=== PATIENT | female | born 1940 | race Caucasian/White ===

== ENCOUNTER 2020-03-11 17:20 | Emergency (ER) | payer MEDICARE, MEDICAID, SELFPAY ==
[2020-03-11 17:29] VITALS: BP 203/88; PULSE 65; RESP 16; TEMP 36.4; O2SAT 100
--- NOTE | 2020-03-11 17:51 | DI.RAD.S_ITS ---
PROCEDURE: XR HUMERUS LT 2V INDICATIONS: fall, injury to left arm TECHNIQUE: 2 views of the humerus were acquired. COMPARISON: None. FINDINGS: Bones: No fractures or dislocations. No suspicious bony lesions. Soft tissues: No suspicious soft tissue calcifications. IMPRESSION: No evidence acute bony abnormality of the left humerus Dictated by: Cheo Herrmann M.D. on 03/11/2020 at 18:22 Approved by: Cheo Herrmann M.D. on 03/11/2020 at 18:22
--- NOTE | 2020-03-11 17:52 | DI.RAD.S_ITS ---
PROCEDURE: XR SHOULDER LT MIN 2V INDICATIONS: fall TECHNIQUE: 3 views of the shoulder were acquired. COMPARISON: None. FINDINGS: Bones: No fractures or dislocations. No suspicious bony lesions. Visualized ribs appear intact. Glenohumeral joint degenerative change. Soft tissues: No suspicious soft tissue calcifications. IMPRESSION: No evidence acute bony abnormality of the left shoulder. If clinical suspicion and/or symptoms persist, further assessment with repeat plain films, or advanced imaging (e.g., CT, MRI, or bone scan) may be helpful for further assessment. Dictated by: Cheo Herrmann M.D. on 03/11/2020 at 18:24 Approved by: Cheo Herrmann M.D. on 03/11/2020 at 18:25
--- NOTE | 2020-03-11 17:52 | DI.RAD.S_ITS ---
PROCEDURE: XR RIBS LT MIN 3V W CXR1V INDICATIONS: fall TECHNIQUE: 2 views of the left ribs were acquired, along with a single view chest. COMPARISON: None. FINDINGS: Surgical changes and devices: None. Bones and chest wall: Nondisplaced anterior lateral left eighth rib fracture.. No suspicious bony lesions. Overlying soft tissues appear unremarkable. Lungs and pleura: No pleural effusions or pneumothorax. Mild bibasilar pulmonary fibrosis. Mediastinum: Mediastinal contours appear normal. Heart size is normal. IMPRESSION: Undisplaced left anterolateral eighth rib fracture. Mild pulmonary fibrosis. Dictated by: Cheo Herrmann M.D. on 03/11/2020 at 18:22 Approved by: Cheo Herrmann M.D. on 03/11/2020 at 18:24
[2020-03-11 17:56] LABS: Add Manual Diff / Slide Review NO; Basophils Absolute Auto 100 /uL (0-100); Basophils Percent Auto 0.6 % (0-2); Eosinophils Absolute Auto 600 /uL (0-450); Eosinophils Percent Auto 3.5 % (2-4); Hematocrit 35.2 % (36-46); Hemoglobin 11.5 g/dL (12.0-16.0); Lymphocytes Absolute Auto 11100 /uL (1100-4500); Lymphocytes Percent Auto 63.6 % (25-40); Mean Corpuscular HGB Conc 32.6 % (30-36); Mean Corpuscular Hemoglobin 29.5 PG (26-34); Mean Corpuscular Volume 90.6 fL (80-100); Monocytes Absolute Auto 900 /uL (0-900); Monocytes Percent Auto 4.9 % (3-14); Neutrophils Absolute Auto 4800 /uL (1500-7000); Neutrophils Percent Auto 27.4 % (50-75); Platelet Count 225 X10^3/uL (150-400); Red Blood Cell Count 3.89 X10^6/uL (4.0-5.2); Red Cell Distribution Width 18.5 % (11.6-14.8); White Blood Cell Count 17.5 X10^3/uL (4.5-11.0)
[2020-03-11 18:05] LABS: Prothrombin Time 10.9 SECONDS (10.1-12.7)
[2020-03-11 18:07] LABS: PTT Partial Thromboplastin Tim 35 SECONDS (26.4-36.2)
--- NOTE | 2020-03-11 18:54 | ED_ITS ---
HPI - Fall <LYNDSAY Devlin - Last Filed: 03/11/20 20:54> General Chief Complaint: Fall Stated Complaint: Fall 4 Days Ago Time Seen by Provider: 03/11/20 18:30 Source: patient and EMS Mode of arrival: EMS Limitations: no limitations History of Present Illness HPI Narrative: The patient is an 79-year-old female a nonsmoker with history of dementia who presents with a chief complaint of a ground level fall on Sunday night. She states that she slipped while going into the bathroom because her socks or slipper and so was the floor landed with her side into the shower chair. She denies hitting head any neck or back pain. She denies any loss of consciousness. She is a resident of [facility] and states that she is very upset that they interrupted her dinner to bring her to the hospital. She denies any pain or shortness of breath. I spoke with patient's , Anderson sanderson by phone, to corroborate story. He states that he on up instantly when he heard her fall and she did not lose consciousness. He does not think that she hit her head. He states that she has a history of dementia and is ?prone to pneumonia. Review of Systems <LYNDSAY Devlin - Last Filed: 03/11/20 20:54> Review of Systems Narrative: GENERAL: Denies chills, fatigue, malaise, fever, sweats. HEENT: Denies sinus pain, ear pain, sore throat, difficulty swallowing, dizziness. RESPIRATORY: Denies dyspnea, cough, wheezing, hemoptysis, sputum. CARDIOVASCULAR: Denies chest pain, palpitations, orthopnea, edema, GASTROINTESTINAL: Denies nausea, vomiting, abdominal pain, diarrhea, constipation, melena. : Denies dysuria, frequency, incontinence, hematuria, urinary retention. MUSCULOSKELETAL: See HPI SKIN: Denies rash, skin lesions, or other NEUROLOGIC: Denies weakness, headache, numbness, change in speech, confusion, seizures, incoordination. PSYCHIATRIC: No concerning psychosocial issues. 12 point review of systems is negative except for those stated above Patient History <LYNDSAY Devlin - Last Filed: 03/11/20 20:54> Medical History (Updated 03/11/20 @ 20:03 by LYNDSAY Devlin) Dementia (Acute) Exam <LYNDSAY Devlin - Last Filed: 03/11/20 20:54> Narrative Exam Narrative: GENERAL: Elderly female no acute distress HEAD: Atraumatic. Normocephalic. No temporal or scalp tenderness. EYES: Right pupil round and reactive, left eye irregular related to previous injury Extraocular motions intact. No scleral icterus. No injection or drainage. ENT: Nose without bleeding, purulent drainage or septal hematoma. Throat without erythema, tonsillar hypertrophy or exudate. Uvula midline. Airway patent. NECK: Trachea midline. No JVD or lymphadenopathy. Supple, nontender, no meningeal signs. CARDIOVASCULAR: Regular rate and rhythm without murmurs, gallops, or rubs. RESPIRATORY: Clear to auscultation. Breath sounds equal bilaterally. No wheezes, rales, or rhonchi. No cough. No increased respiratory effort. No accessory muscle use. General pain to palpation left chest wall. GASTROINTESTINAL: Abdomen soft, non-tender, nondistended. No hepato- splenomegaly, or palpable masses. No guarding. EXTREMITIES: No clubbing, cyanosis, or edema. No joint tenderness, effusion, or edema noted. Peripheral pulses intact all 4 extremities. General pain to palpation left shoulder. Patient refuses range of motion left shoulder, but is observed to be using walker well BACK: Nontender without deformity or crepitance. No flank tenderness. NEURO: Alert, interactive, age appropriate stable gait using a walker SKIN: No rash or erythema visible skin Initial Vital Signs Initial Vital Signs: Vital Signs Temperature 97.5 F L 03/11/20 17:29 Pulse Rate 65 03/11/20 17:29 Respiratory Rate 16 03/11/20 17:29 Blood Pressure 203/88 H 03/11/20 17:29 Pulse Oximetry 100 03/11/20 17:29 <Libertad Mehta MD - Last Filed: 03/12/20 00:45> Initial Vital Signs Initial Vital Signs: Vital Signs Temperature 97.5 F L 03/11/20 17:29 Pulse Rate 65 03/11/20 17:29 Respiratory Rate 16 03/11/20 17:29 Blood Pressure 203/88 H 03/11/20 17:29 Pulse Oximetry 100 03/11/20 17:29 Scores <LYNDSAY Devlin - Last Filed: 03/11/20 20:54> GCS Jose Carlos coma scale eye opening: Spontaneous Hildebran coma scale verbal response: Orientated Jose Carlos coma scale motor response: Obey commands Hildebran coma scale total score: 15 Course <BO DevlinP-BC - Last Filed: 03/11/20 20:54> Orders Ordered: ED Orders 03/11/20 17:40 Complete Blood Count AUTO DIFF Stat Partial Thromboplastin Time Stat Prothrombin Time INR Stat 03/11/20 17:45 Comprehensive Metabolic Panel Stat Lipase Stat Troponin & CK Cardiac Panel Stat 03/11/20 17:51 XR humerus LT 2V Stat 03/11/20 17:52 XR ribs LT min 3V w CXR1V Stat XR shoulder LT min 2V Stat 03/11/20 19:07 RT Consult Eval and Treat NOW Discontinued Medications Hydroxyzine Pamoate (Vistaril) 25 mg PO NOW ONE Stop: 03/11/20 19:25 Last Admin: 03/11/20 19:38 Dose: 25 mg Documented by: GERHARD Vital Signs Vital signs: Vital Signs - 8 hr 03/11/20 17:29 03/11/20 20:04 Temperature 97.5 F L Pulse Rate 65 68 Respiratory Rate 16 19 Blood Pressure 203/88 H Blood Pressure [Left Arm] 170/75 H Pulse Oximetry 100 96 <Libertad Mehta MD - Last Filed: 03/12/20 00:45> Orders Ordered: ED Orders 03/11/20 17:40 Complete Blood Count AUTO DIFF Stat Partial Thromboplastin Time Stat Prothrombin Time INR Stat 03/11/20 17:45 Comprehensive Metabolic Panel Stat Lipase Stat Troponin & CK Cardiac Panel Stat 03/11/20 17:51 XR humerus LT 2V Stat 03/11/20 17:52 XR ribs LT min 3V w CXR1V Stat XR shoulder LT min 2V Stat 03/11/20 19:07 RT Consult Eval and Treat NOW Discontinued Medications Hydroxyzine Pamoate (Vistaril) 25 mg PO NOW ONE Stop: 03/11/20 19:25 Last Admin: 03/11/20 19:38 Dose: 25 mg Documented by: GERHARD Vital Signs Vital signs: Vital Signs - 8 hr 03/11/20 17:29 03/11/20 20:04 Temperature 97.5 F L Pulse Rate 65 68 Respiratory Rate 16 19 Blood Pressure 203/88 H Blood Pressure [Left Arm] 170/75 H Pulse Oximetry 100 96 MDM - Fall <Xochitl Copeland, QUALITY CONTROL SUPERVISOR- - Last Filed: 03/11/20 20:54> Lab Data Result diagrams: 03/11/20 17:40 03/11/20 17:45 Labs: Lab Results 03/11/20 03/11/20 03/11/20 Range/Units 17:40 17:40 17:45 WBC 17.5 H (4.5-11.0) X10^3/uL RBC 3.89 L (4.0-5.2) X10^6/uL Hgb 11.5 L (12.0-16.0) g/dL Hct 35.2 L (36-46) % MCV 90.6 (80-100) fL MCH 29.5 (26-34) PG MCHC 32.6 (30-36) % RDW 18.5 H (11.6-14.8) % Plt Count 225 (150-400) X10^3/uL Neut % (Auto) 27.4 L (50-75) % Lymph % (Auto) 63.6 H (25-40) % Waldo % (Auto) 4.9 (3-14) % Eos % (Auto) 3.5 (2-4) % Baso % (Auto) 0.6 (0-2) % Neut # (Auto) 4800 (2283-9327) /uL Lymph # (Auto) 38772 H (5859-4986) /uL Waldo # (Auto) 900 (0-900) /uL Eos # (Auto) 600 H (0-450) /uL Baso # (Auto) 100 (0-100) /uL PT 10.9 (10.1-12.7) SECONDS INR 1.0 (0.9-1.3) APTT 35 (26.4-36.2) SECONDS Sodium 141 (137-145) mmol/L Potassium 4.8 (3.4-5.1) mmol/L Chloride 112 H (98-107) mmol/L Carbon Dioxide 22 (22-32) mmol/L BUN 45 H (7-17) mg/dL Creatinine 1.65 H (0.52-1.04) mg/dL Estimated GFR 29.9 L (>60) mL/min BUN/Creatinine Ratio 27.3 H (6-22) Glucose 109 (80-110) mg/dL Calcium 9.1 (8.4-10.2) mg/dL Total Bilirubin 0.3 (0.2-1.3) mg/dL AST 28 (14-36) IU/L ALT 13 (<35) IU/L Alkaline Phosphatase 73 (38-126) U/L Total Creatine Kinase 34 (30-135) U/L CK-MB (CK-2) TNP CK-MB (CK-2) Rel Index TNP Troponin I < 0.012 (0.01-0.034) ng/mL Total Protein 7.3 (6.3-8.2) g/dL Albumin 4.1 (3.5-5.0) g/dL Globulin 3.2 (1.7-4.1) g/dL Albumin/Globulin Ratio 1.3 (1.0-2.8) Lipase 149 (23-300) U/L Imaging Data Extremity x-ray #1: Radiologist's Impression: [address] [place] [id number] XRay Report Signed Patient: Thom Lagunas#: [id number] : 8Acct:[id number] Age/Sex: 79 / FDate of Service: 03/11/20 Loc: ED Accession Number: [id number] Procedure: XR shoulder LT min 2V Ordering Provider: Zoe Delgadillo D.O. PROCEDURE: XR SHOULDER LT MIN 2V INDICATIONS: fall TECHNIQUE: 3 views of the shoulder were acquired. COMPARISON: None. FINDINGS: Bones: No fractures or dislocations. No suspicious bony lesions. Visualized ribs appear intact. Glenohumeral joint degenerative change. Soft tissues: No suspicious soft tissue calcifications. IMPRESSION: No evidence acute bony abnormality of the left shoulder. If clinical suspicion and/or symptoms persist, further assessment with repeat plain films, or advanced imaging (e.g., CT, MRI, or bone scan) may be helpful for further assessment. Dictated by: Cheo Herrmann M.D. on 03/11/2020 at 18:24 Approved by: Cheo Herrmann M.D. on 03/11/2020 at 18:25 Chest x-ray: Radiologist's Impression: [address] [place] [address] XRay Report Signed Patient: Thom Lagunas#: [id number] : [id number] Age/Sex: 79 / FDate of Service: 03/11/20 Loc: ED Accession Number: [id number] Procedure: XR ribs LT min 3V w CXR1V Ordering Provider: Zoe Delgadillo D.O. PROCEDURE: XR RIBS LT MIN 3V W CXR1V INDICATIONS: fall TECHNIQUE: 2 views of the left ribs were acquired, along with a single view chest. COMPARISON: None. FINDINGS: Surgical changes and devices: None. Bones and chest wall: Nondisplaced anterior lateral left eighth rib fracture.. No suspicious bony lesions. Overlying soft tissues appear unremarkable. Lungs and pleura: No pleural effusions or pneumothorax. Mild bibasilar pulmonary fibrosis. Mediastinum: Mediastinal contours appear normal. Heart size is normal. IMPRESSION: Undisplaced left anterolateral eighth rib fracture. Mild pulmonary fibrosis. Dictated by: Cheo Herrmann M.D. on 03/11/2020 at 18:22 Approved by: Cheo Herrmann M.D. on 03/11/2020 at 18:24 Extremity x-ray #2: Radiologist's Impression: [address] [place] [id number] XRay Report Signed Patient: Tohm Lagunas#: [id number] : [id number] Age/Sex: 79 / FDate of Service: 03/11/20 Loc: ED Accession Number: [id number] Procedure: XR humerus LT 2V Ordering Provider: Zoe Delgadillo D.O. PROCEDURE: XR HUMERUS LT 2V INDICATIONS: fall, injury to left arm TECHNIQUE: 2 views of the humerus were acquired. COMPARISON: None. FINDINGS: Bones: No fractures or dislocations. No suspicious bony lesions. Soft tissues: No suspicious soft tissue calcifications. IMPRESSION: No evidence acute bony abnormality of the left humerus Dictated by: Cheo Herrmann M.D. on 03/11/2020 at 18:22 Approved by: Cheo Herrmann M.D. on 03/11/2020 at 18:22 [facility] Narrative Medical decision making narrative: The patient is an 79-year-old female who presents after a ground level fall Sunday evening. She was then admitted to a care center on Sunday, who sent her to the emergency department today for this unreported fall as well as left shoulder and left rib pain. She ambulates steadily with a walker. She is noted to have an 8th rib fracture, and received incentive spirometry training in the emergency department. Given that her fall was not witnessed directly, I did speak with her as she refuses a CT scan and he is okay with this. I discussed that I am not able to visualize head bleeds and he states understanding. The patient refuses some lab work, refuses an EKG and refuses to given urinalysis in the emergency department. She refuses parts of her exam and refuses shoulder re-evaluation throughout her stay in the emergency department. She repeatedly requested to go home and as she is alert and oriented to situation and place I am okay with this, especially given that I discussed with her . Did discussed use of incentive spirometer to help prevent pneumonia as well as primary care provider follow-up. <Libertad Mehta MD - Last Filed: 03/12/20 00:45> Lab Data Labs: Lab Results 03/11/20 03/11/20 03/11/20 Range/Units 17:40 17:40 17:45 WBC 17.5 H (4.5-11.0) X10^3/uL RBC 3.89 L (4.0-5.2) X10^6/uL Hgb 11.5 L (12.0-16.0) g/dL Hct 35.2 L (36-46) % MCV 90.6 (80-100) fL MCH 29.5 (26-34) PG MCHC 32.6 (30-36) % RDW 18.5 H (11.6-14.8) % Plt Count 225 (150-400) X10^3/uL Neut % (Auto) 27.4 L (50-75) % Lymph % (Auto) 63.6 H (25-40) % Waldo % (Auto) 4.9 (3-14) % Eos % (Auto) 3.5 (2-4) % Baso % (Auto) 0.6 (0-2) % Neut # (Auto) 4800 (3070-7899) /uL Lymph # (Auto) 86865 H (1524-7386) /uL Waldo # (Auto) 900 (0-900) /uL Eos # (Auto) 600 H (0-450) /uL Baso # (Auto) 100 (0-100) /uL PT 10.9 (10.1-12.7) SECONDS INR 1.0 (0.9-1.3) APTT 35 (26.4-36.2) SECONDS Sodium 141 (137-145) mmol/L Potassium 4.8 (3.4-5.1) mmol/L Chloride 112 H (98-107) mmol/L Carbon Dioxide 22 (22-32) mmol/L BUN 45 H (7-17) mg/dL Creatinine 1.65 H (0.52-1.04) mg/dL Estimated GFR 29.9 L (>60) mL/min BUN/Creatinine Ratio 27.3 H (6-22) Glucose 109 (80-110) mg/dL Calcium 9.1 (8.4-10.2) mg/dL Total Bilirubin 0.3 (0.2-1.3) mg/dL AST 28 (14-36) IU/L ALT 13 (<35) IU/L Alkaline Phosphatase 73 (38-126) U/L Total Creatine Kinase 34 (30-135) U/L CK-MB (CK-2) TNP CK-MB (CK-2) Rel Index TNP Troponin I < 0.012 (0.01-0.034) ng/mL Total Protein 7.3 (6.3-8.2) g/dL Albumin 4.1 (3.5-5.0) g/dL Globulin 3.2 (1.7-4.1) g/dL Albumin/Globulin Ratio 1.3 (1.0-2.8) Lipase 149 (23-300) U/L Discharge Plan Departure Patient Disposition: Home Clinical Impression: Fall from ground level Closed rib fracture Qualifiers: Encounter type: initial encounter Rib fracture type: single rib Laterality: left Qualified Code(s): S22.32XA - Fracture of one rib, left side, initial encounter for closed fracture Discharge Date/Time: 03/11/20 20:54 Instructions: How to Use an Incentive Spirometer, DI for Rib Fracture, How to Prevent Falls Activity Restrictions/Additional Instructions: Thank you for trusting us with your care today As I discussed the x-ray of your shoulder and humerus came back with no acute findings Your rib x-ray did show a single rib fracture. We have given you instructions regarding the incentive spirometer to help prevent pneumonia. I encourage you to use that. Please use ice, Tylenol etcetera for pain. Please come back to the emergency department for any acute concerns <Libertad Mehta MD - Last Filed: 03/12/20 00:45> [facility] Attestation: I was immediately available in the department for consultation throughout this patient's visit. I agree with documentation as above. Libertad Mehta MD
--- NOTE | 2020-03-11 19:07 | PC.NURSE ---
Assisted patient to restroom. Initally refused to give sample. Patient agreeable after discussion of why it is necessary. I want out of here
[2020-03-11] MEDS: hydrOXYzine pamoate 25 MG CAPSULE PO (19:38)
[2020-03-11 20:04] VITALS: BP 170/75; PULSE 68; RESP 19; O2SAT 96
--- NOTE | 2020-03-11 20:06 | PC.NURSE ---
pt aware that her will come and pick her up
[2020-03-11 21:12] LABS: Alanine Aminotransferase 13 IU/L (<35); Albumin 4.1 g/dL (3.5-5.0); Albumin Globulin Ratio 1.3 (1.0-2.8); Alkaline Phosphatase 73 U/L (38-126); Aspartate Aminotransferase 28 IU/L (14-36); BUN Creatinine Ratio 27.3 (6-22); Bilirubin Total 0.3 mg/dL (0.2-1.3); Blood Urea Nitrogen 45 mg/dL (7-17); Calcium 9.1 mg/dL (8.4-10.2); Carbon Dioxide 22 mmol/L (22-32); Chloride 112 mmol/L (98-107); Creatine Kinase 34 U/L (30-135); Estimated Glomerular Filt Rate 29.9 mL/min (>60); Globulin 3.2 g/dL (1.7-4.1); Glucose 109 mg/dL (80-110); HEMOLYSIS 16 (0-50); Lipase 149 U/L (23-300); Potassium 4.8 mmol/L (3.4-5.1); Sodium 141 mmol/L (137-145); Total Protein 7.3 g/dL (6.3-8.2)
[2020-03-11 21:23] LABS: Troponin I < 0.012 ng/mL (0.01-0.034)
== END 2020-03-11 20:54 | disposition home or self-care (01) ==
PROVIDERS: Emergency Medicine; Emergency Provider Nurse Practitioner Family
DX: S22.32XA Fracture of one rib, left side, initial encounter for closed fracture (principal); M25.512 Pain in left shoulder; W18.30XA Fall on same level, unspecified, initial encounter; F03.90 Unspecified dementia, unspecified severity, without behavioral disturbance, psychotic disturbance, mood disturbance, and anxiety
CPT/HCPCS: 36415; 71101; 73030; 73060; 80053; 82550; 83690; 84484; 85025; 85610; 85730; 99284

== ENCOUNTER → 2020-03-20 15:54 | Outpatient (ROUT) | payer MEDICARE, MEDICAID, SELFPAY ==
[2020-03-24 09:01] LABS: COVID19 Sendout Not Detected (Not Detected)
== END ==
PROVIDERS: Visit Provider Internal Medicine Cardiovascular Disease
DX: Z03.818 Encounter for observation for suspected exposure to other biological agents ruled out (principal)
CPT/HCPCS: 87635

== ENCOUNTER 2020-05-05 10:50 | Inpatient (IN) | payer MEDICARE, MEDICAID, SELFPAY ==
[2020-05-05] VITALS (28 sets, daily range): BP systolic 127–160; BP diastolic 56–67; PULSE 62–82; RESP 18–30; TEMP 36.6–37.1; O2SAT 89–96; BMI 27.8
--- NOTE | 2020-05-05 11:03 | DI.RAD.S_ITS ---
PROCEDURE: XR CHEST 1V INDICATIONS: short of breath TECHNIQUE: One view of the chest was acquired. COMPARISON: [facility], CR, XR CHEST 1 VIEW, 04/26/2019, 4:48. [facility], CR, XR RIBS LT MIN 3V W CXR1V, 03/11/2020, 17:49. FINDINGS: Surgical changes and devices: None. Lungs and pleura: Low lung volumes. Bilateral patchy airspace opacities most pronounced in the left lower lobe, increased compared to 03/11/2020. No significant pleural effusions or pneumothorax. Mediastinum: Mediastinal contours appear unchanged but partially obscured. Heart size is obscured. Bones and chest wall: No suspicious bony lesions. Overlying soft tissues appear unremarkable. IMPRESSION: Low lung volumes. Increased bilateral patchy airspace opacities most pronounced in the left lower lobe. This could be due to superimposed atelectasis on fibrosis. However, in the proper clinical setting this could represent pneumonia or aspiration. Consider CT chest for further evaluation. Dictated by: Luís Santiago M.D. on 05/05/2020 at 11:23 Approved by: Luís Santiago M.D. on 05/05/2020 at 11:30
--- NOTE | 2020-05-05 11:08 | ED.SOB ---
HPI - SOB/Dyspnea General Chief Complaint: Shortness of Breath/Dyspnea Stated Complaint: short of breath Time Seen by Provider: 05/05/20 10:59 Source: patient and EMS History of Present Illness HPI Narrative: Patient is an 79 year old female with history of dementia and CVA who presents with shortness of breath. She apparently was admitted to [facility] with bilateral pneumonia it is unclear when records are being requested now. Presents today with increasing shortness of breath. She says every time she gets up to walk she gets extremely scared that something might happen and gets very short of breath. She is currently on 4 L nasal cannula she says she has been on oxygen since her admission for pneumonia but is usually at 2 and half. He denies any chest pain. She sleeps sitting up but has been doing that for some time she denies any worsening orthopnea. She has some mild lower extremity edema. She denies any fever MD Complaint: shortness of breath Related Data Home Medications Medication Instructions Recorded Confirmed albuterol sulfate 2 inh INHALATION Q6H PRN 05/05/20 05/05/20 albuterol sulfate 2.5 mg INHALATION BID 05/05/20 05/05/20 allopurinol 100 mg PO QAM 05/05/20 05/05/20 amlodipine 10 mg PO QAM 05/05/20 05/05/20 artifi.tears(hypromellose)(PF) 2 drp OPHTHALMIC (EYE) TID 05/05/20 05/05/20 aspirin-dipyridamole [Aggrenox] 1 cap PO BEDTIME 05/05/20 05/05/20 atorvastatin 40 mg PO BEDTIME 05/05/20 05/05/20 carvedilol 12.5 mg PO BID 05/05/20 05/05/20 escitalopram oxalate 20 mg PO DAILY 05/05/20 05/05/20 hydralazine 50 mg PO BID 05/05/20 05/05/20 hydroxyzine HCl 50 mg PO BID PRN 05/05/20 05/05/20 nutritional supplements 1 ea PO QPM 05/05/20 05/05/20 psyllium 0.5 tsp PO DAILY 05/05/20 05/05/20 quetiapine 25 mg PO QPM 05/05/20 05/05/20 rivastigmine tartrate 1.5 mg PO TID 05/05/20 05/05/20 rivastigmine tartrate 3 mg PO BID 05/05/20 05/05/20 Allergies Allergy/AdvReac Type Severity Reaction Status Date / Time gabapentin Allergy Verified 05/05/20 11:13 hydrocodone Allergy Verified 05/05/20 11:13 tomato Allergy Verified 05/05/20 11:13 Review of Systems Review of Systems ROS Unobtainable: All systems reviewed & are unremarkable except as noted in HPI and below Constitutional Constitutional: Denies chills, Denies fever(s), Denies lethargy and Denies weakness Cardiovascular Cardiovascular: Denies chest pain, Denies irregular heart rhythm, Denies lightheadedness, Denies palpitations, Reports dyspnea, Reports dyspnea on exertion and Denies orthopnea Respiratory Respiratory: Reports chest congestion, Reports dyspnea and Reports dyspnea on exertion Gastrointestinal Gastrointestinal: Denies abdominal pain, Denies change in bowel habits, Denies diarrhea, Denies nausea and Denies vomiting Genitourinary Genitourinary: Denies urinary hesitancy and Denies urinary urgency Genitourinary: Denies urinary hesitancy and Denies urinary urgency Musculoskeletal Musculoskeletal: Denies back pain and Denies myalgias Integumentary/Breasts Skin/Breast: Denies pruritus, Denies erythema, Denies rash and Denies wounds Neurologic Neurologic: Denies behavioral changes and Denies weakness Psychiatric Psychiatric: Denies behavioral changes Endocrine Endocrine: Denies palpitations Patient History Medical History (Updated 05/05/20 @ 16:39 by Cristóbal Onofre DO) CKD (chronic kidney disease) (Acute) CVA (cerebral vascular accident) (Acute) Dementia (Acute) Pulmonary fibrosis (Acute) Right ventricular dysfunction (Acute) Type 2 diabetes mellitus (Acute) Social History Smoking Status: Never smoker alcohol intake: former Exam Initial Vital Signs Initial Vital Signs: Vital Signs Temperature 97.9 F 05/05/20 10:50 Pulse Rate 67 05/05/20 10:50 Respiratory Rate 20 05/05/20 10:50 Blood Pressure 151/66 H 05/05/20 10:50 Pulse Oximetry 95 05/05/20 10:50 GENERAL: Well-appearing, well-nourished and in no acute distress. HEENT: Head atraumatic,EOMI, pupils reactive, face symmetric CARDIOVASCULAR: Regular rate and rhythm without murmurs, rubs or gallops. RESPIRATORY: Coarse breath sounds bilaterally ABDOMEN: Soft, nontender. Normoactive bowel sounds all 4 quadrants. No guarding or rebound.s EXTREMITIES: Normal range of motion, no clubbing. +1 pitting edema Neurovascularly intact NEUROLOGICAL: Alert and oriented SKIN: Warm, dry, no laceration, no petechiae, no rashes or lesions. Const General: cooperative and well developed Nutritional Appearance: well nourished Course Orders Ordered: ED Orders 05/05/20 11:02 Consult to Respiratory Therapy Evaluate & Treat EKG-12 Lead Stat 05/05/20 11:03 XR chest 1V Stat 05/05/20 11:08 Complete Blood Count AUTO DIFF Stat Comprehensive Metabolic Panel Stat D Dimer Stat Lactate (Lactic Acid) Stat Magnesium Stat NT-proBNP (BNP-Adult 18+) Stat Partial Thromboplastin Time Stat Procalcitonin Stat Prothrombin Time INR Stat Troponin & CK Cardiac Panel Stat 05/05/20 11:16 Ferritin Stat Lactate Dehydrogenase Stat 05/05/20 11:55 Blood Culture Stat 05/05/20 13:03 CT angio chest PE protocol Stat 05/05/20 13:26 UA Complete [Urinalysis and Microscopic] Stat Urine Culture Stat 05/05/20 13:57 US periph venous low extrem bi Stat Acetaminophen (Tylenol) 650 mg PO Q6HR PRN PRN Reason: Fever/Mild Pain (1-3) Albuterol (Ventolin) 2.5 mg INH [id number] PRN PRN Reason: shortness of breath Allopurinol (Zyloprim) 100 mg PO DAILY [facility] Amlodipine Besylate (Norvasc) 10 mg PO DAILY [facility] Artificial Tears (Artificial Tears) 2 drops EYE-BOTH TID [facility] Atorvastatin Calcium (Lipitor) 40 mg PO BEDTIME [facility] Carvedilol (Coreg) 12.5 mg PO BID [facility] Dipyridamole/Aspirin (Aggrenox 25 Mg-200 Mg Capsule) 1 each PO BEDTIME [facility] Enoxaparin Sodium (Lovenox) 30 mg SUBCUT DAILY [facility] Escitalopram Oxalate (Lexapro) 20 mg PO DAILY [facility] Furosemide (Lasix) 40 mg IV Q12HR [facility] Hydralazine HCl (Apresoline) 50 mg PO BID [facility] Hydroxyzine Pamoate (Vistaril) 50 mg PO BID PRN PRN Reason: anxiety / agitation. Ceftriaxone Sodium/Dextrose (Rocephin) 1 gm in 50 mls @ 100 mls/hr IV Q24H [facility] Stop: 05/08/20 16:56 Naloxone HCl (Narcan) 0.2 mg IV Q2MIN PRN PRN Reason: Opiate Reversal Rivastigmine (Tartrate 3 Mg) 3 mg PO BID [facility] Rivastigmine (Tartrate 1.5 Mg) 1.5 mg PO TID [facility] Ondansetron HCl (Zofran) 4 mg IV Q8HR PRN PRN Reason: Nausea And Vomiting Prednisone (Deltasone) 60 mg PO DAILY [facility] Quetiapine Fumarate (Seroquel) 25 mg PO QPM [facility] Discontinued Medications Furosemide (Lasix) 40 mg IV NOW ONE Stop: 05/05/20 12:04 Last Admin: 05/05/20 12:46 Dose: 40 mg Documented by: ANGELIQUE Hydroxyzine Pamoate (Vistaril) 50 mg PO NOW ONE Stop: 05/05/20 12:57 Last Admin: 05/05/20 13:05 Dose: 50 mg Documented by: ANGELIQUE Lorazepam (Ativan) 0.5 mg IV NOW ONE Stop: 05/05/20 13:28 Last Admin: 05/05/20 15:15 Dose: Not Given Documented by: ANGELIQUE Prednisone (Deltasone) 60 mg PO NOW ONE Stop: 05/05/20 16:52 Vital Signs Vital signs: Vital Signs - 8 hr 05/05/20 10:50 05/05/20 11:13 05/05/20 11:15 Temperature 97.9 F Pulse Rate 67 62 62 Respiratory Rate 20 21 20 Blood Pressure 151/66 H Pulse Oximetry 95 95 96 05/05/20 11:30 05/05/20 11:45 05/05/20 12:00 Temperature Pulse Rate 66 63 62 Respiratory Rate 23 20 20 Blood Pressure Pulse Oximetry 93 95 95 05/05/20 12:15 05/05/20 12:30 05/05/20 12:45 Temperature 97.8 F Pulse Rate 65 67 77 Respiratory Rate 19 22 30 H Blood Pressure 158/67 H Pulse Oximetry 95 93 89 L 05/05/20 12:47 05/05/20 13:00 05/05/20 13:01 Temperature Pulse Rate 68 70 68 Respiratory Rate 23 27 H 23 Blood Pressure 158/67 H 154/67 H Pulse Oximetry 96 90 L 94 05/05/20 13:15 05/05/20 13:38 05/05/20 13:39 Temperature Pulse Rate 67 73 70 Respiratory Rate 27 H 27 H Blood Pressure 134/60 138/61 Pulse Oximetry 92 90 L 91 05/05/20 13:45 05/05/20 14:00 05/05/20 14:15 Temperature Pulse Rate 67 68 69 Respiratory Rate 22 28 H 22 Blood Pressure 127/59 L 136/56 L Pulse Oximetry 90 L 92 95 05/05/20 14:16 05/05/20 14:30 05/05/20 14:45 Temperature Pulse Rate 72 71 66 Respiratory Rate 23 23 23 Blood Pressure 158/65 H 147/60 H Pulse Oximetry 95 93 93 MDM - SOB/Dyspnea Lab Data Attestation: I reviewed the patient's lab results. Result diagrams: 05/05/20 11:08 05/05/20 11:08 Labs: Lab Results 05/05/20 05/05/20 05/05/20 Range/Units 11:08 11:08 11:08 WBC 16.8 H (4.5-11.0) X10^3/uL RBC 2.88 L (4.0-5.2) X10^6/uL Hgb 8.6 L (12.0-16.0) g/dL Hct 26.6 L (36-46) % MCV 92.4 (80-100) fL MCH 29.9 (26-34) PG MCHC 32.3 (30-36) % RDW 17.8 H (11.6-14.8) % Plt Count 258 (150-400) X10^3/uL Neut % (Auto) 42.1 L (50-75) % Lymph % (Auto) 45.4 H (25-40) % [place] % (Auto) 7.0 (3-14) % Eos % (Auto) 5.1 H (2-4) % Baso % (Auto) 0.4 (0-2) % Neut # (Auto) 7100 H (5234-3662) /uL Lymph # (Auto) 7600 H (6552-1905) /uL [place] # (Auto) 1200 H (0-900) /uL Eos # (Auto) 900 H (0-450) /uL Baso # (Auto) 100 (0-100) /uL PT 12.3 (10.1-12.7) SECONDS INR 1.1 (0.9-1.3) APTT 35 (26.4-36.2) SECONDS D-Dimer (<230) ng/mL Sodium (137-145) mmol/L Potassium (3.4-5.1) mmol/L Chloride (98-107) mmol/L Carbon Dioxide (22-32) mmol/L BUN (7-17) mg/dL Creatinine (0.52-1.04) mg/dL Estimated GFR (>60) mL/min BUN/Creatinine Ratio (6-22) Glucose (80-110) mg/dL Lactate (0.7-2.1) mmol/L Calcium (8.4-10.2) mg/dL Magnesium 2.1 (1.6-2.3) mg/dL Ferritin (11-264) ng/mL Total Bilirubin (0.2-1.3) mg/dL AST (14-36) IU/L ALT (<35) IU/L Alkaline Phosphatase (38-126) U/L Lactate Dehydrogenase (313-618) U/L Total Creatine Kinase 35 (30-135) U/L CK-MB (CK-2) TNP CK-MB (CK-2) Rel Index TNP Troponin I < 0.012 (0.01-0.034) ng/mL NT-Pro-B Natriuret Pep 2140 H (<450) pg/mL Total Protein (6.3-8.2) g/dL Albumin (3.5-5.0) g/dL Globulin (1.7-4.1) g/dL Albumin/Globulin Ratio (1.0-2.8) Procalcitonin (<0.5) ng/mL Urine Color Urine Appearance Urine pH (4.5-8.0) Ur Specific Williams (1.000-1.035) Urine Protein (Negative) Urine Glucose (UA) (Negative) g/dL Urine Ketones (NEGATIVE) Urine Occult Blood (Negative) Urine Nitrate (Negative) Urine Bilirubin (NEGATIVE) Urine Urobilinogen (0.2) E.U./dL Ur Leukocyte Esterase (NEGATIVE) Urine RBC (0-5/HPF) Urine WBC (0-5/HPF) Ur Squamous Epith Cells (0-5/HPF) Amorphous Sediment Urine Bacteria (None) Urine Mucus (Negative) Ur Culture Indicated? COVID-19 PCR (Negative) 05/05/20 05/05/20 05/05/20 Range/Units 11:08 11:08 11:08 WBC (4.5-11.0) X10^3/uL RBC (4.0-5.2) X10^6/uL Hgb (12.0-16.0) g/dL Hct (36-46) % MCV (80-100) fL MCH (26-34) PG MCHC (30-36) % RDW (11.6-14.8) % Plt Count (150-400) X10^3/uL Neut % (Auto) (50-75) % Lymph % (Auto) (25-40) % [place] % (Auto) (3-14) % Eos % (Auto) (2-4) % Baso % (Auto) (0-2) % Neut # (Auto) (1694-5408) /uL Lymph # (Auto) (6948-4394) /uL [place] # (Auto) (0-900) /uL Eos # (Auto) (0-450) /uL Baso # (Auto) (0-100) /uL PT (10.1-12.7) SECONDS INR (0.9-1.3) APTT (26.4-36.2) SECONDS D-Dimer (<230) ng/mL Sodium 141 (137-145) mmol/L Potassium 4.5 (3.4-5.1) mmol/L Chloride 111 H (98-107) mmol/L Carbon Dioxide 22 (22-32) mmol/L BUN 35 H (7-17) mg/dL Creatinine 1.69 H (0.52-1.04) mg/dL Estimated GFR 29.0 L (>60) mL/min BUN/Creatinine Ratio 20.7 (6-22) Glucose 128 H (80-110) mg/dL Lactate 0.6 L (0.7-2.1) mmol/L Calcium 8.8 (8.4-10.2) mg/dL Magnesium (1.6-2.3) mg/dL Ferritin (11-264) ng/mL Total Bilirubin 0.5 (0.2-1.3) mg/dL AST 20 (14-36) IU/L ALT 9 (<35) IU/L Alkaline Phosphatase 78 (38-126) U/L Lactate Dehydrogenase (313-618) U/L Total Creatine Kinase (30-135) U/L CK-MB (CK-2) CK-MB (CK-2) Rel Index Troponin I (0.01-0.034) ng/mL NT-Pro-B Natriuret Pep (<450) pg/mL Total Protein 6.6 (6.3-8.2) g/dL Albumin 3.6 (3.5-5.0) g/dL Globulin 3.0 (1.7-4.1) g/dL Albumin/Globulin Ratio 1.2 (1.0-2.8) Procalcitonin < 0.05 (<0.5) ng/mL Urine Color Urine Appearance Urine pH (4.5-8.0) Ur Specific Williams (1.000-1.035) Urine Protein (Negative) Urine Glucose (UA) (Negative) g/dL Urine Ketones (NEGATIVE) Urine Occult Blood (Negative) Urine Nitrate (Negative) Urine Bilirubin (NEGATIVE) Urine Urobilinogen (0.2) E.U./dL Ur Leukocyte Esterase (NEGATIVE) Urine RBC (0-5/HPF) Urine WBC (0-5/HPF) Ur Squamous Epith Cells (0-5/HPF) Amorphous Sediment Urine Bacteria (None) Urine Mucus (Negative) Ur Culture Indicated? COVID-19 PCR (Negative) 05/05/20 05/05/20 05/05/20 Range/Units 11:08 11:16 11:30 WBC (4.5-11.0) X10^3/uL RBC (4.0-5.2) X10^6/uL Hgb (12.0-16.0) g/dL Hct (36-46) % MCV (80-100) fL MCH (26-34) PG MCHC (30-36) % RDW (11.6-14.8) % Plt Count (150-400) X10^3/uL Neut % (Auto) (50-75) % Lymph % (Auto) (25-40) % [place] % (Auto) (3-14) % Eos % (Auto) (2-4) % Baso % (Auto) (0-2) % Neut # (Auto) (4433-0196) /uL Lymph # (Auto) (6968-1955) /uL [place] # (Auto) (0-900) /uL Eos # (Auto) (0-450) /uL Baso # (Auto) (0-100) /uL PT (10.1-12.7) SECONDS INR (0.9-1.3) APTT (26.4-36.2) SECONDS D-Dimer 459 H (<230) ng/mL Sodium (137-145) mmol/L Potassium (3.4-5.1) mmol/L Chloride (98-107) mmol/L Carbon Dioxide (22-32) mmol/L BUN (7-17) mg/dL Creatinine (0.52-1.04) mg/dL Estimated GFR (>60) mL/min BUN/Creatinine Ratio (6-22) Glucose (80-110) mg/dL Lactate (0.7-2.1) mmol/L Calcium (8.4-10.2) mg/dL Magnesium (1.6-2.3) mg/dL Ferritin 42 (11-264) ng/mL Total Bilirubin (0.2-1.3) mg/dL AST (14-36) IU/L ALT (<35) IU/L Alkaline Phosphatase (38-126) U/L Lactate Dehydrogenase 444 (313-618) U/L Total Creatine Kinase (30-135) U/L CK-MB (CK-2) CK-MB (CK-2) Rel Index Troponin I (0.01-0.034) ng/mL NT-Pro-B Natriuret Pep (<450) pg/mL Total Protein (6.3-8.2) g/dL Albumin (3.5-5.0) g/dL Globulin (1.7-4.1) g/dL Albumin/Globulin Ratio (1.0-2.8) Procalcitonin (<0.5) ng/mL Urine Color Urine Appearance Urine pH (4.5-8.0) Ur Specific Williams (1.000-1.035) Urine Protein (Negative) Urine Glucose (UA) (Negative) g/dL Urine Ketones (NEGATIVE) Urine Occult Blood (Negative) Urine Nitrate (Negative) Urine Bilirubin (NEGATIVE) Urine Urobilinogen (0.2) E.U./dL Ur Leukocyte Esterase (NEGATIVE) Urine RBC (0-5/HPF) Urine WBC (0-5/HPF) Ur Squamous Epith Cells (0-5/HPF) Amorphous Sediment Urine Bacteria (None) Urine Mucus (Negative) Ur Culture Indicated? COVID-19 PCR Negative (Negative) 05/05/20 05/05/20 Range/Units 11:35 13:26 WBC (4.5-11.0) X10^3/uL RBC (4.0-5.2) X10^6/uL Hgb (12.0-16.0) g/dL Hct (36-46) % MCV (80-100) fL MCH (26-34) PG MCHC (30-36) % RDW (11.6-14.8) % Plt Count (150-400) X10^3/uL Neut % (Auto) (50-75) % Lymph % (Auto) (25-40) % [place] % (Auto) (3-14) % Eos % (Auto) (2-4) % Baso % (Auto) (0-2) % Neut # (Auto) (4182-6305) /uL Lymph # (Auto) (9560-4550) /uL [place] # (Auto) (0-900) /uL Eos # (Auto) (0-450) /uL Baso # (Auto) (0-100) /uL PT (10.1-12.7) SECONDS INR (0.9-1.3) APTT (26.4-36.2) SECONDS D-Dimer (<230) ng/mL Sodium (137-145) mmol/L Potassium (3.4-5.1) mmol/L Chloride (98-107) mmol/L Carbon Dioxide (22-32) mmol/L BUN (7-17) mg/dL Creatinine (0.52-1.04) mg/dL Estimated GFR (>60) mL/min BUN/Creatinine Ratio (6-22) Glucose (80-110) mg/dL Lactate (0.7-2.1) mmol/L Calcium (8.4-10.2) mg/dL Magnesium (1.6-2.3) mg/dL Ferritin (11-264) ng/mL Total Bilirubin (0.2-1.3) mg/dL AST (14-36) IU/L ALT (<35) IU/L Alkaline Phosphatase (38-126) U/L Lactate Dehydrogenase (313-618) U/L Total Creatine Kinase (30-135) U/L CK-MB (CK-2) CK-MB (CK-2) Rel Index Troponin I (0.01-0.034) ng/mL NT-Pro-B Natriuret Pep (<450) pg/mL Total Protein (6.3-8.2) g/dL Albumin (3.5-5.0) g/dL Globulin (1.7-4.1) g/dL Albumin/Globulin Ratio (1.0-2.8) Procalcitonin (<0.5) ng/mL Urine Color Yellow Urine Appearance Clear Urine pH 5.5 (4.5-8.0) Ur Specific Williams <=1.005 (1.000-1.035) Urine Protein Negative (Negative) Urine Glucose (UA) Negative (Negative) g/dL Urine Ketones Negative (NEGATIVE) Urine Occult Blood Negative (Negative) Urine Nitrate Positive H (Negative) Urine Bilirubin Negative (NEGATIVE) Urine Urobilinogen 0.2 (0.2) E.U./dL Ur Leukocyte Esterase 1+ H (NEGATIVE) Urine RBC None seen (0-5/HPF) Urine WBC 10-30/hpf H (0-5/HPF) Ur Squamous Epith Cells 0-1 /hpf (0-5/HPF) Amorphous Sediment 1+ Urine Bacteria Many (>30) H (None) Urine Mucus 1+ H (Negative) Ur Culture Indicated? Specimen cultured COVID-19 PCR Cancelled (Negative) Imaging Data Chest x-ray: Radiologist's Impression: PROCEDURE: XR CHEST 1V INDICATIONS: short of breath TECHNIQUE: One view of the chest was acquired. COMPARISON: [facility], CR, XR CHEST 1 VIEW, 04/26/2019, 4:48. [facility], CR, XR RIBS LT MIN 3V W CXR1V, 03/11/2020, 17:49. FINDINGS: Surgical changes and devices: None. Lungs and pleura: Low lung volumes. Bilateral patchy airspace opacities most pronounced in the left lower lobe, increased compared to 03/11/2020. No significant pleural effusions or pneumothorax. Mediastinum: Mediastinal contours appear unchanged but partially obscured. Heart size is obscured. Bones and chest wall: No suspicious bony lesions. Overlying soft tissues appear unremarkable. IMPRESSION: Low lung volumes. Increased bilateral patchy airspace opacities most pronounced in the left lower lobe. This could be due to superimposed atelectasis on fibrosis. However, in the proper clinical setting this could represent pneumonia or aspiration. Consider CT chest for further evaluation. Dictated by: Luís Santiago M.D. on 05/05/2020 at 11:23 US - DVT: Radiologist's Impression: PROCEDURE: US PERIPH VENOUS LOW EXTREM BI INDICATIONS: CLOT TECHNIQUE: Real-time imaging, as well as color and pulse Doppler interrogation, were performed of the deep veins of both legs from the inguinal ligament to the popliteal fossa. COMPARISON: None. FINDINGS: Right: The common femoral, femoral and popliteal veins are normally compressible, and free of intraluminal thrombus. Color and pulse Doppler demonstrate normal phasic intravascular flow. There is normal augmentation response to distal compression maneuver. Left: The common femoral, femoral and popliteal veins are normally compressible, and free of intraluminal thrombus. Color and pulse Doppler demonstrate normal phasic intravascular flow. There is normal augmentation response to distal compression maneuver. IMPRESSION: 1. No DVT in either lower extremity. Dictated by: Mehreen Jack M.D. on 05/05/2020 at 14:38 Approved by: Mehreen Jack M.D. on 05/05/2020 at 14:39 ECG Data Attestation: I personally reviewed and interpreted this ECG as follows: Prior ECG tracings: not available for review Interpretation: Normal sinus rhythm rate 66 p.r. interval 182 QRS [address] changes no S-wave no T-wave inversions MDM Narrative Medical decision making narrative: Patient's BNP is elevated no known history of CHF records reviewed from [facility] she had pneumonia in November of 2019 she also has known pulmonary fibrosis. She is down to 83% on her home O2 of 2 L with good waveform. He is requiring significant amount of oxygen to keep O2 level at 95% she is needing about 6 L. she is given 1 dose of Lasix she is refusing a catheter. Patient is unable to lie flat and CT due to hypoxia and shortness of breath. COVID-19 is still pending unable to increased nasal O2 above 6L which is equivalent to aerosolizing. Patient has urinated over 1 L with Lasix. Unable to lay flat for CT for PE she has negative bilateral lower extremity Dopplers. Dr. Onofre updated on this at this time he does not request prophylactic Lovenox for anticoagulation. COVID is negative. Discharge Plan Departure Patient Disposition: Admitted as Observation Clinical Impression: CHF (congestive heart failure) Qualifiers: Heart failure type: unspecified Heart failure chronicity: acute Qualified Code(s): I50.9 - Heart failure, unspecified Discharge Date/Time: 05/05/20 15:55 Admit Date/Time: 05/05/20 14:54 Admit Provider: Cristóbal Onofre
[2020-05-05 11:24] LABS: INR 1.1 (0.9-1.3); Prothrombin Time 12.3 SECONDS (10.1-12.7)
[2020-05-05 11:25] LABS: Add Manual Diff / Slide Review NO; Basophils Absolute Auto 100 /uL (0-100); Basophils Percent Auto 0.4 % (0-2); Eosinophils Absolute Auto 900 /uL (0-450); Eosinophils Percent Auto 5.1 % (2-4); Hematocrit 26.6 % (36-46); Hemoglobin 8.6 g/dL (12.0-16.0); Lymphocytes Absolute Auto 7600 /uL (1100-4500); Lymphocytes Percent Auto 45.4 % (25-40); Mean Corpuscular HGB Conc 32.3 % (30-36); Mean Corpuscular Hemoglobin 29.9 PG (26-34); Mean Corpuscular Volume 92.4 fL (80-100); Monocytes Absolute Auto 1200 /uL (0-900); Neutrophils Absolute Auto 7100 /uL (1500-7000); Neutrophils Percent Auto 42.1 % (50-75); Platelet Count 258 X10^3/uL (150-400); Red Blood Cell Count 2.88 X10^6/uL (4.0-5.2); Red Cell Distribution Width 17.8 % (11.6-14.8); White Blood Cell Count 16.8 X10^3/uL (4.5-11.0)
[2020-05-05 11:27] LABS: PTT Partial Thromboplastin Tim 35 SECONDS (26.4-36.2)
[2020-05-05 11:29] LABS: Lactate (Lactic Acid) 0.6 mmol/L (0.7-2.1)
[2020-05-05 11:29] LABS: Lactate Dehydrogenase 444 U/L (313-618)
[2020-05-05 11:30] LABS: Alanine Aminotransferase 9 IU/L (<35); Albumin 3.6 g/dL (3.5-5.0); Albumin Globulin Ratio 1.2 (1.0-2.8); Alkaline Phosphatase 78 U/L (38-126); Aspartate Aminotransferase 20 IU/L (14-36); BUN Creatinine Ratio 20.7 (6-22); Bilirubin Total 0.5 mg/dL (0.2-1.3); Blood Urea Nitrogen 35 mg/dL (7-17); Calcium 8.8 mg/dL (8.4-10.2); Carbon Dioxide 22 mmol/L (22-32); Chloride 111 mmol/L (98-107); Creatine Kinase 35 U/L (30-135); Glucose 128 mg/dL (80-110); HEMOLYSIS < 15 (0-50); Magnesium 2.1 mg/dL (1.6-2.3); Potassium 4.5 mmol/L (3.4-5.1); Sodium 141 mmol/L (137-145); Total Protein 6.6 g/dL (6.3-8.2)
[2020-05-05 11:41] LABS: NT-proBNP (BNP-Adult 18+) 2140 pg/mL (<450); Troponin I < 0.012 ng/mL (0.01-0.034)
[2020-05-05 11:45] LABS: Procalcitonin < 0.05 ng/mL (<0.5)
--- NOTE | 2020-05-05 11:54 | PC.NURSE ---
Pt refusing an in and out cath for a urine sample.
[2020-05-05 12:04] LABS: Ferritin 42 ng/mL (11-264)
[2020-05-05] MEDS: FUROSEMIDE 40 MG/4 ML VIAL IV (12:46)
[2020-05-05] MEDS: hydrOXYzine pamoate 25 MG CAPSULE 50 MG PO (13:05)
[2020-05-05 13:28] LABS: Appearance Urine UA CLEAR; Bilirubin Urine UA NEGATIVE (NEGATIVE); Color Urine UA YELLOW; Glucose Urine UA NEGATIVE (Negative); Ketones Urine UA NEGATIVE (NEGATIVE); Leukocyte Esterase Urine UA 1+ (NEGATIVE); Nitrite Urine UA POSITIVE (Negative); Occult Blood Urine UA NEGATIVE (Negative); Protein Urine UA NEGATIVE (Negative); RBC Urine None Seen (0-5/HPF); Specific Gravity Urine UA <=1.005 (1.000-1.035); Urobilinogen Urine UA 0.2 E.U./dL (0.2)
[2020-05-05 13:33] LABS: pH Urine UA 5.5 (4.5-8.0)
[2020-05-05 13:35] LABS: Amorphous Sediment Urine 1+; Bacteria Urine Many (>30); Culture Indicated Urine Specimen Cultured; Mucus Urine 1+ (Negative); Squamous Epithelial Cell Urine 0-1 /HPF (0-5/HPF); WBC Urine 10-30/HPF (0-5/HPF)
--- NOTE | 2020-05-05 13:43 | PC.NURSE ---
Accidentally checked bed bath
[2020-05-05 13:45] LABS: COVID19 -Nasal RAPID Negative (Negative)
--- NOTE | 2020-05-05 13:55 | PC.NURSE ---
Patient asked for water. She states she would like to use the bedpan after that.
--- NOTE | 2020-05-05 13:57 | DI.US.S_ITS ---
PROCEDURE: US PERIPH VENOUS LOW EXTREM BI INDICATIONS: CLOT TECHNIQUE: Real-time imaging, as well as color and pulse Doppler interrogation, were performed of the deep veins of both legs from the inguinal ligament to the popliteal fossa. COMPARISON: None. FINDINGS: Right: The common femoral, femoral and popliteal veins are normally compressible, and free of intraluminal thrombus. Color and pulse Doppler demonstrate normal phasic intravascular flow. There is normal augmentation response to distal compression maneuver. Left: The common femoral, femoral and popliteal veins are normally compressible, and free of intraluminal thrombus. Color and pulse Doppler demonstrate normal phasic intravascular flow. There is normal augmentation response to distal compression maneuver. IMPRESSION: 1. No DVT in either lower extremity. Dictated by: Mehreen Jack M.D. on 05/05/2020 at 14:38 Approved by: Mehreen Jack M.D. on 05/05/2020 at 14:39
--- NOTE | 2020-05-05 14:05 | PC.NURSE ---
RN at [facility] called and given an update. Pt's tao ([phone]) called and given an update per pt request.
--- NOTE | 2020-05-05 14:24 | PC.NURSE ---
Patient is feeling less anxious because she doesn't have to go for a CT scan.
[2020-05-05 14:59] LABS: D Dimer 459 ng/mL (<230)
--- NOTE | 2020-05-05 16:14 | PC.NURSE ---
Addendum entered by Madeleine Miranda R.N. 05/05/20 21:56: 02 4L per nc sats 93%. Per MD order keep oxygen above 88%. Decreased to 3L per NC. Added humidity as pt c/o dryness to nares. Original Note: Pt to room 207 from [facility] awake, alert, conversant. Oxygen set @ 2L/min but pt has difficulty maintaining oxygen saturation levels; 86% with transfer to bed. Increased to 4L per NC with continuous monitor in place. Oxygen level 91% with rest. Head of bed elevated. Dr. Onofre reviewing pt's history from [place].
--- NOTE | 2020-05-05 16:37 | P.HP_ITS ---
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 Patient states that she has been getting more and more short of breath actually over the past month or so, but states for the past 2 days it has been at rest. She was able to walk at least down a hallway with supplemental oxygen after being discharged from [facility] in November for hypoglycemia secondary to UTI and possible pneumonia versus pulmonary fibrosis flare. But now she feels short of breath at rest. She denies any recent fevers, chills, worsened cough compared to her baseline, there has not been a change in her sputum production. She denies any abdominal pain, nausea, vomiting, dysuria, or urinary frequency. Her shortness of breath get significantly worse when lying flat. She is typically on 2 to 2.5 L at home at rest. Patient is a resident at [facility], uses a walker at baseline. In the emergency room, patient was hypoxic on her usual dosing of 2 L supplemental oxygen into the upper 80s. She is requiring an increase of oxygen at rest up to 4 L now. She was also mildly hypertensive and mildly tachypneic, but not tachycardic. Labs were notable for leukocytosis of 16.8, hemoglobin of 8.6, platelets were normal at 258. D-dimer was negative for her age of 89. Chemistry showed a creatinine of 1.69, it is unclear what her baseline creatin ine is. Lactate was unremarkable and 0.6. Procalcitonin was negative at less than 0.05. Troponin was negative. ProBNP was elevated at 2140. COVID-19 testing was negative. Urinalysis was performed which showed positive leuk esterase and nitrate, with many urine bacteria. EKG was unremarkable. Chest x- ray showed bilateral airspace opacities more prominent in the left. ER wanted to perform CTA chest to rule out pulmonary embolism, but patient went for the study and became too anxious and claustrophobic. She now is refusing further CT imaging, however D-dimer was sent and was negative for her age as noted above. Patient is admitted to Medicine under inpatient status for acute on chronic hypoxemic respiratory failure. Patient History Medical History (Updated 05/05/20 @ 16:39 by Cristóbal Onofre DO) CKD (chronic kidney disease) (Acute) CVA (cerebral vascular accident) (Acute) Dementia (Acute) Pulmonary fibrosis (Acute) Right ventricular dysfunction (Acute) Type 2 diabetes mellitus (Acute) Family & Social History Safety & Behavioral: Feels Safe in Current Yes Environment Been Physically Hurt or No Threatened By a Person Tobacco & Substance use: Smoking Status Never smoker Substance Use Type does not use Meds Home Medications and Allergies Home Medications Medication Instructions Recorded Confirmed Type albuterol sulfate 2 inh INHALATION Q6H PRN 05/05/20 05/05/20 History albuterol sulfate 2.5 mg INHALATION BID 05/05/20 05/05/20 History allopurinol 100 mg PO QAM 05/05/20 05/05/20 History amlodipine 10 mg PO QAM 05/05/20 05/05/20 History artifi.tears(hypromellose)(PF) 2 drp OPHTHALMIC (EYE) TID 05/05/20 05/05/20 History aspirin-dipyridamole [Aggrenox] 1 cap PO BEDTIME 05/05/20 05/05/20 History atorvastatin 40 mg PO BEDTIME 05/05/20 05/05/20 History carvedilol 12.5 mg PO BID 05/05/20 05/05/20 History escitalopram oxalate 20 mg PO DAILY 05/05/20 05/05/20 History hydralazine 50 mg PO BID 05/05/20 05/05/20 History hydroxyzine HCl 50 mg PO BID PRN 05/05/20 05/05/20 History nutritional supplements 1 ea PO QPM 05/05/20 05/05/20 History psyllium 0.5 tsp PO DAILY 05/05/20 05/05/20 History quetiapine 25 mg PO QPM 05/05/20 05/05/20 History rivastigmine tartrate 1.5 mg PO TID 05/05/20 05/05/20 History rivastigmine tartrate 3 mg PO BID 05/05/20 05/05/20 History Allergies Allergy/AdvReac Type Severity Reaction Status Date / Time gabapentin Allergy Verified 05/05/20 11:13 hydrocodone Allergy Verified 05/05/20 11:13 tomato Allergy Verified 05/05/20 11:13 Review of Systems Review of Systems Narrative: All other systems reviewed with the patient and are negative unless otherwise stated. Exam Vital Signs (past 8 hours): - 05/05/20 10:50 05/05/20 11:13 05/05/20 11:15 Temperature 97.9 F Pulse Rate 67 62 62 Respiratory Rate 20 21 20 Blood Pressure 151/66 H Pulse Oximetry 95 95 96 05/05/20 11:30 05/05/20 11:45 05/05/20 12:00 Temperature Pulse Rate 66 63 62 Respiratory Rate 23 20 20 Blood Pressure Pulse Oximetry 93 95 95 05/05/20 12:15 05/05/20 12:30 05/05/20 12:45 Temperature 97.8 F Pulse Rate 65 67 77 Respiratory Rate 19 22 30 H Blood Pressure 158/67 H Pulse Oximetry 95 93 89 L 05/05/20 12:47 05/05/20 13:00 05/05/20 13:01 Temperature Pulse Rate 68 70 68 Respiratory Rate 23 27 H 23 Blood Pressure 158/67 H 154/67 H Pulse Oximetry 96 90 L 94 05/05/20 13:15 05/05/20 13:38 05/05/20 13:39 Temperature Pulse Rate 67 73 70 Respiratory Rate 27 H 27 H Blood Pressure 134/60 138/61 Pulse Oximetry 92 90 L 91 05/05/20 13:45 05/05/20 14:00 05/05/20 14:15 Temperature Pulse Rate 67 68 69 Respiratory Rate 22 28 H 22 Blood Pressure 127/59 L 136/56 L Pulse Oximetry 90 L 92 95 05/05/20 14:16 05/05/20 14:30 05/05/20 14:45 Temperature Pulse Rate 72 71 66 Respiratory Rate 23 23 23 Blood Pressure 158/65 H 147/60 H Pulse Oximetry 95 93 93 05/05/20 15:00 05/05/20 15:15 05/05/20 15:30 Temperature Pulse Rate 68 78 69 Respiratory Rate 23 25 H 28 H Blood Pressure 149/60 H 136/59 L 142/62 H Pulse Oximetry 96 91 90 L Oxygen Delivery Method Nasal Cannula Oxygen Flow Rate 4 Narrative Exam Narrative: GENERAL APPEARANCE: Well developed, well nourished, in no acute distress. SKIN: Inspection of the skin reveals no rashes, ulcerations or petechiae. HEENT: Normocephalic atraumatic. 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 Oropharynx is clear and mucous membranes are moist, neck is supple without adenopathy NECK: Supple and symmetric. There was no thyroid enlargement, and no tenderness, or masses were felt. + JVD. CHEST: Normal AP diameter and normal contour without any kyphoscoliosis. LUNGS: Auscultation of the lungs revealed bibasilar crackles with R > L, no wheezing. Shallow breaths but no acute distress. CARDIOVASCULAR: There was a regular rate and rhythm without any murmurs, gallops, rubs. Peripheral pulses were 2+ and symmetric. ABDOMEN: Soft and nontender with normal bowel sounds. No ascites was noted. MUSCULOSKELETAL: There was no tenderness or effusions noted. Muscle strength and tone were normal. EXTREMITIES: No cyanosis, clubbing. Trace pretibial edema. NEUROLOGIC: Alert and oriented x 3. Mild cognitive impairment with impaired short-term memory. Normal affect. Pleasant. Strength is +5/5 in the Upper Ex tremities and Lower Extremities Bilaterally. Sensation to touch was normal. Objective ECG Impression: Normal sinus rhythm, rate 66. Low-voltage EKG but no overt evidence of ischemia. Imaging Chest x-ray: Radiologist's impression: IMPRESSION: Low lung volumes. Increased bilateral patchy airspace opacities most pronounced in the left lower lobe. This could be due to superimposed atelectasis on fibrosis. However, in the proper clinical setting this could represent pneumonia or aspiration. Consider CT chest for further evaluation. Labs Result Diagrams: 05/05/20 11:08 05/05/20 11:08 Labs: Laboratory Results - last 24 hr 05/05/20 05/05/20 05/05/20 11:08 11:08 11:08 WBC 16.8 H RBC 2.88 L Hgb 8.6 L Hct 26.6 L MCV 92.4 MCH 29.9 MCHC 32.3 RDW 17.8 H Plt Count 258 Neut % (Auto) 42.1 L Lymph % (Auto) 45.4 H [place] % (Auto) 7.0 Eos % (Auto) 5.1 H Baso % (Auto) 0.4 Neut # (Auto) 7100 H Lymph # (Auto) 7600 H [place] # (Auto) 1200 H Eos # (Auto) 900 H Baso # (Auto) 100 PT 12.3 INR 1.1 APTT 35 D-Dimer Sodium Potassium Chloride Carbon Dioxide BUN Creatinine Estimated GFR BUN/Creatinine Ratio Glucose Lactate Calcium Magnesium 2.1 Ferritin Total Bilirubin AST ALT Alkaline Phosphatase Lactate Dehydrogenase Total Creatine Kinase 35 CK-MB (CK-2) TNP CK-MB (CK-2) Rel Index TNP Troponin I < 0.012 NT-Pro-B Natriuret Pep 2140 H Total Protein Albumin Globulin Albumin/Globulin Ratio Procalcitonin Urine Color Urine Appearance Urine pH Ur Specific Post Urine Protein Urine Glucose (UA) Urine Ketones Urine Occult Blood Urine Nitrate Urine Bilirubin Urine Urobilinogen Ur Leukocyte Esterase Urine RBC Urine WBC Ur Squamous Epith Cells Amorphous Sediment Urine Bacteria Urine Mucus Ur Culture Indicated? COVID-19 PCR 05/05/20 05/05/20 05/05/20 11:08 11:08 11:08 WBC RBC Hgb Hct MCV MCH MCHC RDW Plt Count Neut % (Auto) Lymph % (Auto) [place] % (Auto) Eos % (Auto) Baso % (Auto) Neut # (Auto) Lymph # (Auto) [place] # (Auto) Eos # (Auto) Baso # (Auto) PT INR APTT D-Dimer Sodium 141 Potassium 4.5 Chloride 111 H Carbon Dioxide 22 BUN 35 H Creatinine 1.69 H Estimated GFR 29.0 L BUN/Creatinine Ratio 20.7 Glucose 128 H Lactate 0.6 L Calcium 8.8 Magnesium Ferritin Total Bilirubin 0.5 AST 20 ALT 9 Alkaline Phosphatase 78 Lactate Dehydrogenase Total Creatine Kinase CK-MB (CK-2) CK-MB (CK-2) Rel Index Troponin I NT-Pro-B Natriuret Pep Total Protein 6.6 Albumin 3.6 Globulin 3.0 Albumin/Globulin Ratio 1.2 Procalcitonin < 0.05 Urine Color Urine Appearance Urine pH Ur Specific Post Urine Protein Urine Glucose (UA) Urine Ketones Urine Occult Blood Urine Nitrate Urine Bilirubin Urine Urobilinogen Ur Leukocyte Esterase Urine RBC Urine WBC Ur Squamous Epith Cells Amorphous Sediment Urine Bacteria Urine Mucus Ur Culture Indicated? COVID-19 PCR 05/05/20 05/05/20 05/05/20 11:08 11:16 11:30 WBC RBC Hgb Hct MCV MCH MCHC RDW Plt Count Neut % (Auto) Lymph % (Auto) [place] % (Auto) Eos % (Auto) Baso % (Auto) Neut # (Auto) Lymph # (Auto) [place] # (Auto) Eos # (Auto) Baso # (Auto) PT INR APTT D-Dimer 459 H Sodium Potassium Chloride Carbon Dioxide BUN Creatinine Estimated GFR BUN/Creatinine Ratio Glucose Lactate Calcium Magnesium Ferritin 42 Total Bilirubin AST ALT Alkaline Phosphatase Lactate Dehydrogenase 444 Total Creatine Kinase CK-MB (CK-2) CK-MB (CK-2) Rel Index Troponin I NT-Pro-B Natriuret Pep Total Protein Albumin Globulin Albumin/Globulin Ratio Procalcitonin Urine Color Urine Appearance Urine pH Ur Specific Post Urine Protein Urine Glucose (UA) Urine Ketones Urine Occult Blood Urine Nitrate Urine Bilirubin Urine Urobilinogen Ur Leukocyte Esterase Urine RBC Urine WBC Ur Squamous Epith Cells Amorphous Sediment Urine Bacteria Urine Mucus Ur Culture Indicated? COVID-19 PCR Negative 05/05/20 05/05/20 11:35 13:26 WBC RBC Hgb Hct MCV MCH MCHC RDW Plt Count Neut % (Auto) Lymph % (Auto) [place] % (Auto) Eos % (Auto) Baso % (Auto) Neut # (Auto) Lymph # (Auto) [place] # (Auto) Eos # (Auto) Baso # (Auto) PT INR APTT D-Dimer Sodium Potassium Chloride Carbon Dioxide BUN Creatinine Estimated GFR BUN/Creatinine Ratio Glucose Lactate Calcium Magnesium Ferritin Total Bilirubin AST ALT Alkaline Phosphatase Lactate Dehydrogenase Total Creatine Kinase CK-MB (CK-2) CK-MB (CK-2) Rel Index Troponin I NT-Pro-B Natriuret Pep Total Protein Albumin Globulin Albumin/Globulin Ratio Procalcitonin Urine Color Yellow Urine Appearance Clear Urine pH 5.5 Ur Specific Post <=1.005 Urine Protein Negative Urine Glucose (UA) Negative Urine Ketones Negative Urine Occult Blood Negative Urine Nitrate Positive H Urine Bilirubin Negative Urine Urobilinogen 0.2 Ur Leukocyte Esterase 1+ H Urine RBC None seen Urine WBC 10-30/hpf H Ur Squamous Epith Cells 0-1 /hpf Amorphous Sediment 1+ Urine Bacteria Many (>30) H Urine Mucus 1+ H Ur Culture Indicated? 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 1. Acute on chronic hypoxemic respiratory failure -patient was previously admitted in November to [facility] in [place]. Extensive discharge summary was reviewed. She was treated for a possible pneumonia or mild exacerbation of her pulmonary fibrosis with steroids at that time. She also had evidence of right ventricular dysfunction on an echocardiogram. She was supposed to follow-up with outpatient pulmonology, Dr Johnson but never did according to the records. Patient states that she does n ot have a lung doctor. -will obtain echocardiogram given elevated proBNP above 2000 and history noted above. Patient was given Lasix 40 mg IV in the emergency room. Will continue with Lasix 40 mg IV b.i.d. for now, but cor pulmonale patient's may require high doses of Lasix especially given her elevated creatinine. -believe pneumonia is less likely given no recent fevers or changes in cough. She will be, however, placed on ceftriaxone for acute cystitis which will at least partially cover a less likely lung source. -will treat with 60 mg of prednisone daily for possible mild exacerbation of her bronchiectasis. -patient is at this time refusing further imaging with CT scan which would be h elpful in further evaluation of the above causes. Given negative D-dimer by age the likelihood of PE is very low, she did have negative DVT study in the emergency room. If agreeable in the future would prefer CT high resolution for further evaluation. -continue to provide supplemental oxygen to maintain O2 saturations greater than 88%, but no higher than 96%. Baseline home oxygen is approximately 2-3 L at rest, slightly increased at 3-4 L with ambulation. -respiratory therapy evaluation and treatment, continue albuterol as needed for shortness of breath -COVID-19 testing was negative 2. Acute cystitis, present on admission -patient has a history E coli UTI that was sensitive to ceftriaxone that was treated at [facility] in [place]. -will treat with ceftriaxone x3 days, patient does not complain of symptoms but is unreliable in the setting of dementia. -follow-up culture results 3. Chronic kidney disease, stage III -per discharge paperwork from [facility] baseline creatinine is around 1.4. She does not meet the definition for HECTOR with a creatinine of 1.68 on admi ssion. -continue to monitor creatinine, avoid nephrotoxic medications, and renally dose medications as necessary 4. Pulmonary fibrosis, present on admission -possibly represents a mild exacerbation. Will treat with prednisone as noted above. -prior imaging noted in her discharge paperwork from [facility] has shown bilateral ground-glass opacities and fibrosis. Will attempt to convince p atient for additional CT imaging for further for clarification as discussed above. 5. Possible congestive heart failure -as discussed above patient has elevated proBNP, documented right heart failure in the past, which is likely due to pulmonary lung disease however will obtain echocardiogram for further evaluation. She does have some mild JVD and lower extremity edema on exam. -treat with Lasix 40 mg b.i.d., may need to increase as discussed above. -have ordered echocardiogram for further evaluation 6. Type 2 diabetes, chronic -not currently on therapies as per discharge paperwork from [facility]. She was admitted there for hypoglycemia after she received doses of Lantus. -will continue fingersticks a.c. HS with sliding scale coverage 7. History of prior CVA -continue home Lipitor 8. Hypertension, chronic -continue home amlodipine, carvedilol, and hydralazine 9. Hyperlipidemia, chronic 10. Dementia, chronic -continue home Seroquel and rivastigmine -per prior documentation from [facility] she has waxing and waning mentation but is alert and oriented. -will further examined with occupational therapy 11. Depression and anxiety, chronic -continue hydroxyzine 50 mg twice daily as needed for anxiety Dispo: Admitted under inpatient status as her stay is expected to exceed 2 midnights, PT/OT consults Code: DNR as discussed with the patient, surrogate decision maker is the patient's DVT: Lovenox daily COVID19: negative.
--- NOTE | 2020-05-05 17:10 | DI.ECHO.S_ITS ---
[facility]---------+ [facility] +---------+ : : [address] : [place] [address] : : : : [id number] : : : : Phone: [phone]---------+ Echocardiogram Report + + :Name: JEFFERY DIAZ Study Date: 05/06/2020 Height: 66 in : :[facility] Weight: 172 lb : : Gender: Female BSA: 1.9 m2 : :: 1940 Age: 79 yrs BP: 145/67 mmHg: :Reason For Study: Shortness of Breath : :Ordering Physician: HOSPITALIST, : :ELIZABETH Performed By: Deidra Dye : :Referring: CASH EMERY : + + Interpretation Summary The left ventricle is normal in size and wall thickness. The left ventricular ejection fraction is normal. There are no focal wall motion abnormalities. Diastolic parameters suggest a pseudonormalization pattern, consistent with probable elevated filling pressures. The right ventricle is normal in size and function. The left atrium is moderately dilated. -Normal LVEF with grade 2 diastolic dysfunction. -No hemodynamically significant valvular abnormalities. Procedure: A two-dimensional transthoracic echocardiogram with color flow and Doppler was performed. The study quality was technically adequate. There is no prior echocardiogram noted for this patient. The patient was in sinus rhythm with heart rates between 68-74 bpm during the exam. Left Ventricle: The left ventricle is normal in size and wall thickness. The ejection fraction is estimated to be 65-70%. The left ventricular ejection fraction is normal. There are no focal wall motion abnormalities. Diastolic parameters suggest a pseudonormalization pattern, consistent with probable elevated filling pressures. Right Ventricle: The right ventricle is normal in size and function. Atria: The left atrium is moderately dilated. Right atrial size is normal. There is no Doppler evidence for an interatrial shunt. Mitral Valve: The mitral valve leaflets are mildly calcified. There is mild mitral annular calcification. There is no mitral regurgitation noted. Aortic Valve: The aortic valve is trileaflet. The aortic valve is mildly calcified. There is mild aortic valve sclerosis. There is discrete nodular thickening of the right coronary cusp. No aortic regurgitation is present. Tricuspid Valve: The tricuspid valve is normal in structure and function. Pulmonary artery pressures cannot be estimated because of the lack of a measurable TR jet velocity but the IVC suggests a CVP of around 8 mmHg. There is trace tricuspid regurgitation. Pulmonic Valve: The pulmonic valve leaflets are thin and pliable; valve motion is normal. There is trace pulmonic regurgitation. Great Vessels: The aortic root is normal size. The ascending aorta is normal in size. The IVC is of normal diameter and collapses less than 50% with a sniff. This suggests a right atrial pressure of 8 mm Hg. Pericardium/ Pleura There is no pericardial effusion. There is no pleural effusion. MMode/2D Measurements & Calculations LVIDd: 5.0 cm LVOT diam: 2.0 cm LVIDs: 3.1 cm Ao root diam: 3.1 cm FS: 37.9 % asc Aorta Diam: 3.0 cm EPSS: 1.2 cm IVSd: 0.96 cm LVPWd: 0.99 cm LV garcia. diameter/BSA (cm/m^2): 2.7 LV sys. diameter/BSA (cm/m^2): 1.7 LA A2 area: 24.3 cm2 RA long axis: 5.2 cm LA A4 area: 22.5 cm2 RA area: 18.0 cm2 LA length (vol): 5.5 cm RA vol: 53.0 ml LA vol: 83.6 ml RA : 28.3 ml/m2 LA vol index: 44.6 ml/m2 IVC diam: 1.8 cm RVD1 (basal): 3.4 cm TAPSE: 2.5 cm Doppler Measurements & Calculations Ao V2 max: 208.6 cm/sec LVOT Max Spencer: 115.8 cm/sec Ao V2 mean: 136.0 cm/sec LV V1 max P.4 mmHg Ao max P.4 mmHg LV V1 VTI: 29.5 cm Ao mean P.7 mmHg VALDEZ(I,D): 2.0 cm2 Ao V2 VTI: 46.1 cm VALDEZ(V,D): 1.7 cm2 sev ratio: 0.64 VALDEZ indexed to BSA (cm^2/m^2): 1.0 MV E max spencer: 146.8 cm/sec PA V2 max: 72.0 cm/sec MV A max spencer: 96.7 cm/sec PA V2 mean: 46.4 cm/sec MV E/A: 1.5 PA mean P.98 mmHg Med Peak E' Spencer: 4.8 cm/sec E/E' med: 30.8 Lat Peak E' Spencer: 7.7 cm/sec E/E' lat: 19.0 E/e' average: 24.9 MV dec time: 0.18 sec SV(LVOT): 90.6 ml Electronically signed by: Junior Cohen M.D. on [facility] Physician:05/06/2020 02:10 PM
[2020-05-05] MEDS: predniSONE 20 MG TABLET 60 MG PO (17:47)
[2020-05-05] MEDS: CEFTRIAXONE 1 GM/50 ML FROZ.PIGGY IV (17:47)
[2020-05-05] MEDS: QUETIAPINE 25 MG TABLET PO (17:47)
[2020-05-05] MEDS: ASPIRIN/DIPYRIDAMOLE 200/25 CAP 1 EACH PO (20:25)
[2020-05-05] MEDS: HYDRALAZINE 25 MG TABLET 50 MG PO (20:26)
[2020-05-05] MEDS: carvediloL 12.5 MG TABLET PO (20:26)
[2020-05-05] MEDS: ATORVASTATIN 20 MG TABLET 40 MG PO (20:26)
[2020-05-05] MEDS: ACETAMINOPHEN 325 MG TABLET 650 MG PO (20:27)
[2020-05-05] MEDS: POLYVINYL ALCOHOL DROPS 2 DROPS EYE-BOTH (20:27)
[2020-05-05] MEDS: SODIUM CHLORIDE 0.9% FLUSH 10 ML IV (20:28)
[2020-05-06 03:00] VITALS: BP 141/65; PULSE 80; RESP 18; TEMP 36.7; O2SAT 93
[2020-05-06 06:14] LABS: Alanine Aminotransferase 10 IU/L (<35); Albumin 3.5 g/dL (3.5-5.0); Albumin Globulin Ratio 1.2 (1.0-2.8); Alkaline Phosphatase 72 U/L (38-126); Aspartate Aminotransferase 20 IU/L (14-36); BUN Creatinine Ratio 21.3 (6-22); Bilirubin Total 0.5 mg/dL (0.2-1.3); Bilirubin Unconjugated 0.3 mg/dL (0.0-1.1); Blood Urea Nitrogen 39 mg/dL (7-17); Calcium 8.6 mg/dL (8.4-10.2); Carbon Dioxide 21 mmol/L (22-32); Chloride 108 mmol/L (98-107); Estimated Glomerular Filt Rate 26.5 mL/min (>60); Glucose 214 mg/dL (80-110); HEMOLYSIS < 15 (0-50); Sodium 139 mmol/L (137-145); Total Protein 6.5 g/dL (6.3-8.2)
[2020-05-06 06:19] LABS: Hematocrit 27.9 % (36-46); Hemoglobin 8.9 g/dL (12.0-16.0); Mean Corpuscular Hemoglobin 29.9 PG (26-34); Mean Corpuscular Volume 93.6 fL (80-100); Platelet Count 256 X10^3/uL (150-400); Red Blood Cell Count 2.98 X10^6/uL (4.0-5.2); Red Cell Distribution Width 17.9 % (11.6-14.8); White Blood Cell Count 11.9 X10^3/uL (4.5-11.0)
[2020-05-06 06:54] LABS: Add Manual Diff / Slide Review YES
[2020-05-06 06:58] LABS: Total Cells Counted 100
[2020-05-06 06:59] LABS: Anisocytosis 2+; Neutrophils Absolute Manual 7854 /uL (3000-5900)
[2020-05-06 07:00] VITALS: BP 137/70; PULSE 79; RESP 16; TEMP 36.5; O2SAT 96
[2020-05-06] MEDS: INSULIN ASPART 100 UNIT/ML INSULN PEN SUBCUT ×4 (08:48→21:21)
[2020-05-06] MEDS: AMLODIPINE 5 MG TABLET 10 MG PO (08:49)
[2020-05-06] MEDS: allopurinoL 100 MG TABLET PO (08:49)
[2020-05-06] MEDS: carvediloL 12.5 MG TABLET PO ×2 (08:50→21:20)
[2020-05-06] MEDS: HYDRALAZINE 25 MG TABLET 50 MG PO ×2 (08:50→21:20)
[2020-05-06] MEDS: POLYVINYL ALCOHOL DROPS 2 DROPS EYE-BOTH ×3 (08:50→21:19)
[2020-05-06] MEDS: ENOXAPARIN 30 MG/0.3 ML SYRINGE SUBCUT (08:50)
[2020-05-06] MEDS: SODIUM CHLORIDE 0.9% FLUSH 10 ML IV ×2 (08:51→21:21)
[2020-05-06] MEDS: predniSONE 20 MG TABLET 60 MG PO (08:51)
--- NOTE | 2020-05-06 09:12 | CM.DANOTE ---
Addendum entered by Rosa Villa R.N. 05/06/20 11:00: Discussed patient during team rounds. Patient was awake, but sleepy. Dr. Onofre indicated that patient could be ready to go back to [facility] tomorrow or the next day. Went ahead and updated Mariana at [facility]. She mentioned that [facility] can come and assess patient tomorrow. If she does not get discharged tomorrow, that assessment should cover Sunday. She will need updated COVID as well. Let Mariana know that she would be updated tomorrow. Original Note: DCP: Case received, EMR reviewed and met with patient. Introduced self and role. Was not able to get adequate information from patient due to her dementia and hearing deficit. Was able to speak to Mariana, nursing program manager at [facility], and obtain information regarding patient's baseline activity level, and family information. DCP assessment completed with information currently available. Patient is an 79 year old female who admitted yesterday afternoon to the care of the hospitalist team. PCP: Dr. Webster at [facility]. Payer: confirmed: Medicare/Medicaid. Patient came to the hospital via ambulance secondary to shortness of breath/hypoxia. Patient has history of pneumonia, she was recently at [facility] with bilateral pneumonia. She is on oxygen, has been on 4 liters. Patient has history of dementia and resides at [facility]. Called Mariana at [facility], she is the director, and was able to obtain information on patient. She has been at [facility] since March. Her , Bob, resides on [address]. His phone number is: [phone]. Mariana could not clarify is he is her POA. Patient also has sons that are not involved. According to Mariana, her is involved and takes patient to her medical appointments. Mariana stated that patient self toilets, uses a four wheel walker at baseline. She is on continued oxygen at the facility. She has assistance with showers, and comes to the main dining room for meals. Patient also uses a bedside commode in her room. P: DCP to continue to follow. If patient does not discharge today, [facility] will need to come over and evaluate her to accept her back, for it would be over 24 hours. May need an updated COVID test as well. Rosa Villa RN/[facility] [place]
[2020-05-06] MEDS: ESCITALOPRAM 10 MG TABLET 20 MG PO (10:01)
[2020-05-06 10:15] VITALS: PULSE 66; RESP 20; O2SAT 95
--- NOTE | 2020-05-06 10:24 | PT.IIE ---
Medical History (Last Updated 05/05/20 @ 16:39 by Cristóbal Onofre DO) CKD (chronic kidney disease) (Acute) CVA (cerebral vascular accident) (Acute) Dementia (Acute) Pulmonary fibrosis (Acute) Right ventricular dysfunction (Acute) Type 2 diabetes mellitus (Acute) Physical Therapy Inpatient Evaluation/Re-Eval M1 PT/OT-IP Prior Functional Status Start: 05/06/20 12:04 Freq: NEEDED Status: Active Protocol: Document 05/06/20 10:24 AB (Rec: 05/06/20 12:20 AB [email or web address]) Medical Review Prior Functional Status Medical History Reviewed Yes Communication able to make needs known Mobility and Gait pt stated that she is modified independent with all mobilities and ambulation using 4WW. Activities of Daily Living and IADL's has caregivers that provides assist if needed but usually only needs set up Social History Household Members none Living Arrangements Assisted Living Number of Floors (Floors) One Floor Number of Stairs To Enter/Railing? no steps; Home Equipment Four Wheel Walker,Bedside Commode,Shower Seat with Backrest,Hand Held Shower Additional Social History Comment Pt lives at [facility] stated that she uses a bedside commode next to her bed uses O2 24/7 M2 PT-IP Current Condition Start: 05/06/20 12:04 Freq: NEEDED Status: Active Protocol: Document 05/06/20 10:24 AB (Rec: 05/06/20 12:20 AB [email or web address]) Physical Therapy Current Condition Current Condition Evaluation Date 05/06/20 Treatment Diagnosis CHF; difficulty in walking Onset Date 05/05/20 Precautions Other Precautions O2 sat M3 PT-IP Subjective Start: 05/06/20 12:04 Freq: NEEDED Status: Active Protocol: Document 05/06/20 10:24 AB (Rec: 05/06/20 12:20 AB [email or web address]) Subjective Physical Therapy Visit Type Type Initial Evaluation Visit Start Time 10:24 Visit Stop Time 10:50 Total Visit Minutes 26 Number of ELECTRIC LINEMAN Visits 0 Physical Therapy Visit Comments Patient Comments pt requires encouragement to participate Therapy Pain Assessment Pain Present Pain Present Denied Pain M4 PT-IP Mobility and Gait Start: 05/06/20 12:04 Freq: NEEDED Status: Active Protocol: Document 05/06/20 10:24 AB (Rec: 05/06/20 12:20 AB [email or web address]) PT-Bed Mobility Assessment Supine to Sit Supine to Sit Standby Assistance,Head of Bed Elevated Sit to Supine Sit to Supine Standby Assistance,Head of Bed Elevated Scooting Scooting to Edge of Bed Standby Assistance PT-Transfer Assessment Sit to and From Stand Sit to and from Stand Moderate Assistance,1 Person Assistance,Use of Upper Extremities Equipment Transfer Assistive Device Gait Belt,Front Wheeled Walker Orthotic/Prosthetic Devices or Brace: No Comments Mobility Comments pt in bed and initially refusing PT. Pt on 2L/min O2. O2 sat at rest 96%. pt educated and agreed to do some PT. completed supine to sit SBA with HOB elevated. pt was able to sit on EOB CGA. O2 sat decreased to 88% . pt is a mouth breather and cued for deep breathing techniques. O2 sat increased to 90-91%. completed sit to stand mod A and cues and ambulated in room ~ 7 ft using FWW mod A and cues. O2 sat decreased to 84% . cued for deep breathing. pt requested to go back to bed . completed sit to supine SBA . assisted with positioning. call light and table placed within reach. O2 sat at end of tx session: 96% Gait Assessment Gait Gait Assistance Required: Moderate Assistance,1 Person Assist Distance (Feet) 7 Able to Maintain Weight Bearing Status Yes During Gait Assistive Devices Assistive Device Gait Belt,Front Wheeled Walker Orthotic/Prosthetic Devices or Brace: No Gait Deviations General Gait Pattern Antalgic,Decreased Stride Length,Decreased Feet Clearance Factors Limiting Gait Function Factors Limiting Gait Function Decreased Activity Tolerance, Decreased Strength,Difficulty Following Directions,Poor Balance,Poor Safety Awareness, Respiratory Distress PT-Balance Assessment Sitting Balance and Reactions Static Sitting Balance Ability Good Dynamic Sitting Balance Ability Fair Standing Balance and Reactions Static Standing Balance Ability Fair Dynamic Standing Balance Ability Fair Device Used FWW M5 PT-IP Objective Assessments Start: 05/06/20 12:04 Freq: NEEDED Status: Active Protocol: Document 05/06/20 10:24 AB (Rec: 05/06/20 12:20 AB [email or web address]) Orientation Orientation/Cognition Level of Alertness Alert Orientation Name Safety Awareness Decreased Safety Awareness Memory Description Short Term Impaired Gross Range of Motion Lower Extremity ROM Assessment Within Functional Limits Strength Lower Extremity Strength Assessment Bilaterally Impaired Hip 3-/5 Knee 3+/5 Muscle Tone Muscle Tone WNL Yes M6 PT-IP Treatment Start: 05/06/20 12:04 Freq: NEEDED Status: Active Protocol: Document 05/06/20 10:24 AB (Rec: 05/06/20 12:20 AB [email or web address]) Physical Therapy Treatment Education Education Provided Safety M7 PT-IP Assessment and Plan Start: 05/06/20 12:04 Freq: NEEDED Status: Active Protocol: Document 05/06/20 10:24 AB (Rec: 05/06/20 12:20 AB [email or web address]) PT Summary Assessment and Plan Potential Rehabilitation Potential Good Status of Condition at Evaluation Evolving Summary Impairments Pain,ROM,Strength,Balance, Coordination,Sensation,Tone, Cognition,Bed Mobility, Transfers,Gait,Activity Tolerance Assessment Summary pt requiring mod A and cues with mobility and has decrease activity tolerance with decrease in O2 sat to 84% with activity using 2L/min O2. pt lives at [facility] and has caregivers that can assist her when needed. d/c plan is back to [facility] but will need homehealth PT. Goals Bed Mobility Goal Standby Assistance Transfer Goal Standby Assistance,Front Wheeled Walker,Four Wheeled Walker Gait Goal Standby Assistance,Front Wheel Walker,Four Wheel Walker Gait Distance 75 Days to Meet Goals 10 Frequency of Treatment Frequency Of Treatment Once a Day Treatment Plan Physical Therapy Treatment Plan Bed Mobility Training,Transfer Training,Gait Training, Therapeutic Exercise,Balance Retraining,Discharge Planning, Neuromuscular Re-ed, Coordination Retraining Recommendations To Nursing Amount of Assist Needed 1 Person Assist Discharge Recommendations PT Discharge Recommendations Home with Assistance,Home Health Equipment Needed for Home Before FWW if not safe with 4WW Discharge Transportation Needs at Discharge Wheelchair/Cabulance
[2020-05-06] MEDS: hydrOXYzine pamoate 25 MG CAPSULE 50 MG PO (11:38)
--- NOTE | 2020-05-06 11:49 | PM.PN.1 ---
Subjective Subjective Date Patient Seen: 05/06/20 Time Patient Seen: 11:50 Interval history: Elise Lagunas is an 79-year-old female with past medical history of dementia, type 2 diabetes no longer on any therapies, prior CVA without deficits, chronic kidney disease, hyperlipidemia, hypertension, depression and anxiety, and pulmonary fibrosis with cor pulmonale to presented with worsening shortness of breath over past 2 days. She was admitted with acute on chronic respiratory failure and is seen for follow-up today. Patient was diuresed with 40 mg of IV Lasix and started on prednisone. Echocardiogram has been ordered for today and will further help inform the etiology of this acute respiratory failure. Her shortness of breath feels much improved today and she had almost 2 L of output yesterday with diuresis. She denies any chest pain, nausea, vomiting. She is very hard of hearing at baseline. She is seemingly back on her baseline oxygen use at 2L today. Her creatinine has jumped slightly to 1.83 this morning. Exam Vital Signs (past 8 hours): - 05/06/20 07:00 Temperature 97.7 F Pulse Rate 79 Respiratory Rate 16 Blood Pressure 137/70 Pulse Oximetry 96 Oxygen Delivery Method Nasal Cannula Oxygen Flow Rate 3 Narrative Exam Narrative: GENERAL APPEARANCE: Well developed, well nourished, in no acute distress. SKIN: Inspection of the skin reveals no rashes, ulcerations or petechiae. HEENT: Normocephalic atraumatic. 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 Oropharynx is clear and mucous membranes are moist, neck is supple without adenopathy NECK: Supple and symmetric. There was no thyroid enlargement, and no tenderness, or masses were felt. no JVD. CHEST: Normal AP diameter and normal contour without any kyphoscoliosis. LUNGS: Auscultation of the lungs revealed bibasilar crackles with R > L, no wheezing. Shallow breaths but no acute distress. CARDIOVASCULAR: There was a regular rate and rhythm without any murmurs, gallops, rubs. Peripheral pulses were 2+ and symmetric. ABDOMEN: Soft and nontender with normal bowel sounds. No ascites was noted. MUSCULOSKELETAL: There was no tenderness or effusions noted. Muscle strength and tone were normal. EXTREMITIES: No cyanosis, clubbing. Trace pretibial edema. NEUROLOGIC: Alert and oriented x 3. Mild cognitive impairment with impaired short-term memory. Normal affect. Pleasant. Strength is +5/5 in the Upper Extremities and Lower Extremities Bilaterally. Sensation to touch was normal. Objective Labs Result Diagrams: 05/06/20 05:45 05/06/20 05:45 Labs: Laboratory Results - last 24 hr 05/05/20 05/05/20 05/05/20 11:08 11:16 11:30 WBC RBC Hgb Hct MCV MCH MCHC RDW Plt Count Neut % (Auto) Lymph % (Auto) Armstrong % (Auto) Eos % (Auto) Baso % (Auto) Neut # (Auto) Lymph # (Auto) Armstrong # (Auto) Eos # (Auto) Baso # (Auto) Total Counted Seg Neutrophils % Band Neutrophils % Lymphocytes % (Manual) Eosinophils % (Manual) Myelocytes % Neutrophils # (Manual) RBC Morphology Anisocytosis D-Dimer 459 H Sodium Potassium Chloride Carbon Dioxide BUN Creatinine Estimated GFR BUN/Creatinine Ratio Glucose Calcium Magnesium Ferritin 42 Total Bilirubin Conjugated Bilirubin Unconjugated Bilirubin AST ALT Alkaline Phosphatase Total Protein Albumin Globulin Albumin/Globulin Ratio Urine Color Urine Appearance Urine pH Ur Specific Molina Urine Protein Urine Glucose (UA) Urine Ketones Urine Occult Blood Urine Nitrate Urine Bilirubin Urine Urobilinogen Ur Leukocyte Esterase Urine RBC Urine WBC Ur Squamous Epith Cells Amorphous Sediment Urine Bacteria Urine Mucus Ur Culture Indicated? COVID-19 PCR Negative 05/05/20 05/05/20 05/06/20 11:35 13:26 05:45 WBC 11.9 H RBC 2.98 L Hgb 8.9 L Hct 27.9 L MCV 93.6 MCH 29.9 MCHC 32.0 RDW 17.9 H Plt Count 256 Neut % (Auto) Receivable Clerk Lymph % (Auto) Receivable Clerk Armstrong % (Auto) Receivable Clerk Eos % (Auto) Receivable Clerk Baso % (Auto) Receivable Clerk Neut # (Auto) Receivable Clerk Lymph # (Auto) Receivable Clerk Armstrong # (Auto) Receivable Clerk Eos # (Auto) Receivable Clerk Baso # (Auto) Receivable Clerk Total Counted 100 Seg Neutrophils % 65.0 Band Neutrophils % 1.0 L Lymphocytes % (Manual) 32.0 Eosinophils % (Manual) 1.0 L Myelocytes % 1.0 H Neutrophils # (Manual) 7854 H RBC Morphology See below Anisocytosis 2+ H D-Dimer Sodium Potassium Chloride Carbon Dioxide BUN Creatinine Estimated GFR BUN/Creatinine Ratio Glucose Calcium Magnesium Ferritin Total Bilirubin Conjugated Bilirubin Unconjugated Bilirubin AST ALT Alkaline Phosphatase Total Protein Albumin Globulin Albumin/Globulin Ratio Urine Color Yellow Urine Appearance Clear Urine pH 5.5 Ur Specific Molina <=1.005 Urine Protein Negative Urine Glucose (UA) Negative Urine Ketones Negative Urine Occult Blood Negative Urine Nitrate Positive H Urine Bilirubin Negative Urine Urobilinogen 0.2 Ur Leukocyte Esterase 1+ H Urine RBC None seen Urine WBC 10-30/hpf H Ur Squamous Epith Cells 0-1 /hpf Amorphous Sediment 1+ Urine Bacteria Many (>30) H Urine Mucus 1+ H Ur Culture Indicated? Specimen cultured COVID-19 PCR Cancelled 05/06/20 05:45 WBC RBC Hgb Hct MCV MCH MCHC RDW Plt Count Neut % (Auto) Lymph % (Auto) Armstrong % (Auto) Eos % (Auto) Baso % (Auto) Neut # (Auto) Lymph # (Auto) Armstrong # (Auto) Eos # (Auto) Baso # (Auto) Total Counted Seg Neutrophils % Band Neutrophils % Lymphocytes % (Manual) Eosinophils % (Manual) Myelocytes % Neutrophils # (Manual) RBC Morphology Anisocytosis D-Dimer Sodium 139 Potassium 5.0 Chloride 108 H Carbon Dioxide 21 L BUN 39 H Creatinine 1.83 H Estimated GFR 26.5 L BUN/Creatinine Ratio 21.3 Glucose 214 H Calcium 8.6 Magnesium 2.0 Ferritin Total Bilirubin 0.5 Conjugated Bilirubin 0.0 Unconjugated Bilirubin 0.3 AST 20 ALT 10 Alkaline Phosphatase 72 Total Protein 6.5 Albumin 3.5 Globulin 3.0 Albumin/Globulin Ratio 1.2 Urine Color Urine Appearance Urine pH Ur Specific Molina Urine Protein Urine Glucose (UA) Urine Ketones Urine Occult Blood Urine Nitrate Urine Bilirubin Urine Urobilinogen Ur Leukocyte Esterase Urine RBC Urine WBC Ur Squamous Epith Cells Amorphous Sediment Urine Bacteria Urine Mucus Ur Culture Indicated? COVID-19 PCR Assessment & Plan Assessment & Plan narrative: Elise Lagunas is an 79-year-old female with past medical history of dementia, type 2 diabetes no longer on any therapies, prior CVA without deficits, chronic kidney disease, hyperlipidemia, hypertension, depression and anxiety, and pulmonary fibrosis with cor pulmonale to presented with worsening shortness of breath over past 2 days, possibly due to progressive pulmonary fibrosis, heart failure, or less likely pneumonia. 1. Acute on chronic hypoxemic respiratory failure, improved, present on admission -patient was previously admitted in November to [facility] in [place]. Extensive discharge summary was reviewed. She was treated for a possible pneumonia or mild exacerbation of her pulmonary fibrosis with steroids at that time. She also had evidence of right ventricular dysfunction on an echocardiogram. She was supposed to follow-up with outpatient pulmonology, Dr Johnson, but never did according to the records. Patient states that she does not have a lung doctor. -will obtain echocardiogram given elevated proBNP above 2000 and history noted above. Patient was given Lasix 40 mg IV in the emergency room and has continued with Lasix 40 mg IV b.i.d. with almost 2 L of output. Will change to daily today given slight bump in her creatinine and improvement to baseline O2 use. Consider further oral lasix pending TTE results to maintain euvolemic. -believe pneumonia is less likely given no recent fevers or changes in cough. She will be, however, placed on ceftriaxone for acute cystitis which will at least partially cover a less likely lung source. -continue with 60 mg of prednisone daily for possible mild exacerbation of her pulmonary fibrosis. -patient is at this time refusing further imaging with CT scan which would be helpful in further evaluation of the above causes. Given negative D-dimer by age the likelihood of PE is very low, she did have negative DVT study in the emergency room. -continue to provide supplemental oxygen to maintain O2 saturations greater than 88%, but no higher than 96%. Baseline home oxygen is approximately 2-3 L at rest, slightly increased at 3-4 L with ambulation. -respiratory therapy evaluation and treatment, continue albuterol as needed for shortness of breath -COVID-19 testing was negative 2. Acute cystitis, present on admission -patient has a history E coli UTI that was sensitive to ceftriaxone that was treated at [facility] in [place]. -will treat with ceftriaxone x3 days, patient does not complain of symptoms but is unreliable in the setting of dementia. Today is day 2/3. -follow-up culture results, currently growing Gram negative bacilli. 3. Acute on Chronic kidney disease, stage III -per discharge paperwork from [facility] baseline creatinine is around 1.4. She did not meet the definition for HECTOR with a creatinine of 1.68 on admission, but increased slightly to 1.8 today. This still may represent her new baseline and given possible cor pulmonale her creatinine may need to be slightly more elevated to maintain adequate volume status. -continue to monitor creatinine, avoid nephrotoxic medications, and renally dose medications as necessary 4. Pulmonary fibrosis, present on admission -possibly represents a mild exacerbation. Will treat with prednisone as noted above. -prior imaging noted in her discharge paperwork from [facility] has shown bilateral ground-glass opacities and fibrosis. patient refuses further CT imaging as discussed above. 5. Possible congestive heart failure -as discussed above patient has elevated proBNP, documented right heart failure in the past, which is likely due to pulmonary lung disease however will obtain echocardiogram for further evaluation. She does have some mild JVD and lower extremity edema on exam. -treated with Lasix 40 mg b.i.d with adequate response, will decrease today to daily given return to baseline oxygen use and adequate output with slight elevation in creatinine. -have ordered echocardiogram for further evaluation 6. Type 2 diabetes, chronic -not currently on therapies as per discharge paperwork from [facility]. She was admitted there for hypoglycemia after she received doses of Lantus. -will continue fingersticks a.c. HS with sliding scale coverage only 7. History of prior CVA -continue home Lipitor 8. Hypertension, chronic -continue home amlodipine, carvedilol, and hydralazine 9. Hyperlipidemia, chronic - continue home lipitor as noted above. 10. Dementia, chronic -continue home Seroquel and rivastigmine -per prior documentation from [facility] she has waxing and waning mentation but is alert and oriented. -will further examined with occupational therapy 11. Depression and anxiety, chronic -continue hydroxyzine 50 mg twice daily as needed for anxiety Dispo: Admitted under inpatient status as her stay is expected to exceed 2 midnights, Dispo pending PT/OT evaluations. Code: DNR as discussed with the patient, surrogate decision maker is the patient's DVT: Lovenox daily COVID19: negative. Quality VTE Deep Vein Thrombosis/Pulmonary Embolism Present on Admission: No
[2020-05-06 11:53] VITALS: BP 147/59; PULSE 68; RESP 19; TEMP 36.8; O2SAT 94
[2020-05-06] MEDS: ACETAMINOPHEN 325 MG TABLET 650 MG PO (14:20)
--- NOTE | 2020-05-06 14:43 | OT.IP.EVAL ---
Current Diagnoses Acute and chronic respiratory failure with hypoxia (05/05/20) Past Medical History (Last Updated 05/05/20 @ 16:39 by Cristóbal Onofre DO) CKD (chronic kidney disease) (Acute) CVA (cerebral vascular accident) (Acute) Dementia (Acute) Pulmonary fibrosis (Acute) Right ventricular dysfunction (Acute) Type 2 diabetes mellitus (Acute) Occupational Therapy Inpatient Evaluation/Re-Eval M1 PT/OT-IP Prior Functional Status Start: 05/06/20 15:24 Freq: NEEDED Status: Active Protocol: Document 05/06/20 15:36 [facility] (Rec: 05/06/20 15:37 [facility] [id number]) Medical Review Prior Functional Status Medical History Reviewed Yes Communication able to make needs known Mobility and Gait pt stated that she is modified independent with all mobilities and ambulation using 4WW. Activities of Daily Living and IADL's has caregivers that provides assist if needed but usually only needs set up Social History Household Members none Living Arrangements Assisted Living Number of Floors (Floors) One Floor Number of Stairs To Enter/Railing? no steps; Home Equipment Four Wheel Walker,Bedside Commode,Shower Seat with Backrest,Hand Held Shower Additional Social History Comment [facility] stated that she uses a bedside commode next to her bed uses O2 24/7 M2 OT-IP Current Condition Start: 05/06/20 15:24 Freq: Status: Active Protocol: Document 05/06/20 15:36 [facility] (Rec: 05/06/20 15:37 [facility] [id number]) Occupational Therapy Current Condition Current Condition Evaluation Date 05/06/20 Treatment Diagnosis CHF, decreased mobility Diagnosis Onset Date 05/05/20 M3 OT- IP Subjective and Pain Start: 05/06/20 15:24 Freq: Status: Active Protocol: Document 05/06/20 14:43 [facility] (Rec: 05/06/20 15:36 [facility] [id number]) OT- Subjective Occupational Therapy Visit Type Type Initial Evaluation Visit Start Time 14:43 Visit Stop Time 14:55 Total Visit Minutes 12 Occupational Therapy Visit Comments Patient Comments Pt agreed to get up to do grooming needs. Patient/Caregiver Goals To go home. OT Pain Assessment Pain When Pain Assessed At Rest Pain Present Pain Present Denied Pain M4 OT- IP ADL's Start: 05/06/20 15:24 Freq: Status: Active Protocol: Document 05/06/20 14:43 [facility] (Rec: 05/06/20 15:36 [facility] [id number]) OT ADL-Grooming General Evaluation Grooming Ability Standby Assistance Comments OT Grooming Comments Set-up assist only and able to do while sitting on the edge of the bed. OT ADL-Oral Care General Eval Oral Care Ability Independent OT ADL-Dressing General Eval Lower Body Dressing Ability Standby Assistance Comments OT Dressing Comments Pt able to cross her legs over to be able to abhijeet/doff the socks. OT ADL-Toileting Comments OT Toileting Comments Nair in . OT ADL-Bathing Comments OT Bathing Comments NOt performed. M5 OT- IP IADL's Start: 05/06/20 15:24 Freq: Status: Active Protocol: Document 05/06/20 14:43 [facility] (Rec: 05/06/20 15:36 [facility] [id number]) OT-Instrumental Activities of Daily Living Medication Management Medication Management Caregiver Administers Money Management Money Management Caregiver Provides Assistance Meal Preparation Meal Preparation Caregiver Provides Assist Coin Machine Mechanic Coin Machine Mechanic Caregiver Provides Assist M6 OT- IP Functional Cognition Start: 05/06/20 15:24 Freq: Status: Active Protocol: Document 05/06/20 14:43 [facility] (Rec: 05/06/20 15:36 [facility] [id number]) Cognitive Factors Limiting Selfcare Function Cognitive Ability Level of Alertness Alert Patient Orientation Name Attention Span Ability Capable of Focused Attention, Capable of Sustained Attention Ability to Follow Commands Able to Follow One Step Commands Cognitive Comments Cognitive Assessment Comments Pt able to follow one step commands. Pt able to identify her needs. Pt a bit anxious and does not know why she is in the hospital. OT- Vision and Hearing OT- Vision Assessment Vision Assessment Comments Blind left eye. M7 OT- IP Mobility and Balance Start: 05/06/20 15:24 Freq: Status: Active Protocol: Document 05/06/20 14:43 [facility] (Rec: 05/06/20 15:36 [facility] [id number]) OT- Bed Mobility Assessment Supine to Sit Supine to Sit Assist Standby Assistance,Head of Bed Elevated Sit to Supine Sit to Supine Assist Standby Assistance,Head of Bed Elevated OT-Transfer Assessment Sit to and From Stand Sit to and from Stand Contact Guard Assistance Comments Mobility Comments Pt not wanting to more much as states tired but agreed to stand up and take a couple side steps to the head of the bed with FWW. OT- Balance Assessment Sitting Balance and Reactions Static Sitting Balance Ability Normal Dynamic Sitting Balance Ability Good Standing Balance and Reactions Static Standing Balance Ability Fair M8 OT- IP Objective Assessments Start: 05/06/20 15:24 Freq: Status: Active Protocol: Document 05/06/20 14:43 [facility] (Rec: 05/06/20 15:36 [facility] [id number]) OT Strength Comments Strength Comments WFL for transfer and bed mobility needs, not formally assessed. M9 OT- IP Assessment and Plan Start: 05/06/20 15:24 Freq: Status: Active Protocol: Document 05/06/20 14:43 [facility] (Rec: 05/06/20 15:36 [facility] [id number]) OT Summary Assessment and Plan Potential Rehabilitation Potential Good Analytic Complexity at Evaluation Low Summary OT Impairments Functional Mobility,Grooming, Dressing,Toileting,Bathing, Toilet Transfers,Shower Transfers,Activity Tolerance Progress Towards Goals Slow Progress due to Activity Tolerance Assessment Summary Pt low complexity admitted due to CHF, decreased mobility now O2 on 2L and drops during activity of 86% and quickly increases up to 93% after a short rest break. Pt when medically stable may benefit from increased assist initially for Adl and mobility needs at her assisted living and would benefit from home health as well to help improve her overall endurance and activity tolerance with Adl needs. Goals Grooming Goal Independent Dressing Goal Independent Toileting Goal Independent Bathing Goal Standby Assistance Toilet Transfer Goal Independent Shower Transfer Goal Independent Patient/Caregiver Education Goal Demonstrate Energy Conservation and Pacing Days to Meet Goals 5 Frequency of Treatment Frequency Of Treatment Once a Day Treatment Plan OT Treatment Plan ADL Training,Functional Cognition Training,Functional Mobility,Patient/Family Education,Discharge Planning Other Treatment Recommendations and Next Shower Treatment Focus Discharge Recommendations OT Discharge Recommendations Home with Assistance,Home Health Transportation Needs at Discharge Private Vehicle
[2020-05-06 15:28] VITALS: BP 149/59; PULSE 72; RESP 19; TEMP 36.8; O2SAT 95
[2020-05-06] MEDS: LORazepam 0.5 MG TABLET PO (16:21)
[2020-05-06] MEDS: FUROSEMIDE 40 MG/4 ML VIAL IV (16:32)
[2020-05-06] MEDS: CEFTRIAXONE 1 GM/50 ML FROZ.PIGGY IV (16:46)
[2020-05-06] MEDS: QUETIAPINE 25 MG TABLET PO (16:46)
--- NOTE | 2020-05-06 16:57 | DIET.PN ---
Dietary Progress Note Assessment: 79 y F admitted for acute on chronic respiratory failure secondary to pulmonary fibrosis c CKD3 in fluid overload referred to nutrition for report of recent weight loss. -2L urine output yesterday c improvment in SOB Pt reports being happy she lost weight since she was overweight, and attributes part of her weight loss to eating better. HT: 167.6 WT: 78.1kg (-13% unintentional in 2 mo, severe) UBW: 90kg BMI: 27.8 Labs: hgb 8.9, Cr 1.83, eGFR 26.5, ProBNP 2140 Nutrition Diagnosis: Severe Acute PCM r/t exacerbation of pulmonary fibrosis aeb 13% unintentional weight loss in 2 mo (severe), pt reports difficulty eating because of reduced lung fxn, pt has had several hospitalizations recently for same c no f/u c pulmonology, pt at baseline on 2L O2. Interventions: 1. Recc ONS Nepro once daily in addition to meals to support PRO/kcal needs Diet Order: Low sodium EER: 1950 kcal (25kcal/kg), 70g PRO (0.9g/kg per renal PCM) Monitoring/Evaluations: ONS tolerance
[2020-05-06 19:40] VITALS: BP 152/60; PULSE 83; RESP 20; TEMP 37.1; O2SAT 93
[2020-05-06] MEDS: ATORVASTATIN 20 MG TABLET 40 MG PO (21:20)
[2020-05-06] MEDS: ASPIRIN/DIPYRIDAMOLE 200/25 CAP 1 EACH PO (21:20)
[2020-05-07] VITALS: BP 149/56; PULSE 75; RESP 18; TEMP 36.8; O2SAT 95
[2020-05-07 00:39] VITALS: BP 149/56; PULSE 75
[2020-05-07 04:43] VITALS: BP 141/57; PULSE 71; RESP 16; TEMP 36.4; O2SAT 95
[2020-05-07 06:10] LABS: Add Manual Diff / Slide Review NO; Basophils Absolute Auto 0 /uL (0-100); Basophils Percent Auto 0.1 % (0-2); Eosinophils Absolute Auto 0 /uL (0-450); Hematocrit 26.7 % (36-46); Hemoglobin 8.6 g/dL (12.0-16.0); Lymphocytes Absolute Auto 9800 /uL (1100-4500); Lymphocytes Percent Auto 44.7 % (25-40); Mean Corpuscular Hemoglobin 29.8 PG (26-34); Mean Corpuscular Volume 93.1 fL (80-100); Monocytes Absolute Auto 900 /uL (0-900); Monocytes Percent Auto 4.3 % (3-14); Neutrophils Absolute Auto 11100 /uL (1500-7000); Neutrophils Percent Auto 50.9 % (50-75); Platelet Count 266 X10^3/uL (150-400); Red Blood Cell Count 2.87 X10^6/uL (4.0-5.2); Red Cell Distribution Width 17.7 % (11.6-14.8); White Blood Cell Count 21.9 X10^3/uL (4.5-11.0)
[2020-05-07 06:18] LABS: Alanine Aminotransferase 10 IU/L (<35); Albumin 3.4 g/dL (3.5-5.0); Albumin Globulin Ratio 1.1 (1.0-2.8); Alkaline Phosphatase 67 U/L (38-126); Aspartate Aminotransferase 17 IU/L (14-36); BUN Creatinine Ratio 29.6 (6-22); Bilirubin Total 0.3 mg/dL (0.2-1.3); Bilirubin Unconjugated 0.1 mg/dL (0.0-1.1); Blood Urea Nitrogen 50 mg/dL (7-17); Calcium 8.8 mg/dL (8.4-10.2); Carbon Dioxide 24 mmol/L (22-32); Chloride 107 mmol/L (98-107); Glucose 237 mg/dL (80-110); HEMOLYSIS < 15 (0-50); Magnesium 1.9 mg/dL (1.6-2.3); Sodium 138 mmol/L (137-145); Total Protein 6.4 g/dL (6.3-8.2)
--- NOTE | 2020-05-07 07:58 | PM.DS.1 ---
History of Present Illness History of Present Illness Date Patient Seen: 05/05/20 Chief complaint: short of breath Narrative: Written by Dr. 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 Patient states that she has been getting more and more short of breath actually over the past month or so, but states for the past 2 days it has been at rest. She was able to walk at least down a hallway with supplemental oxygen after being discharged from [facility] in November for hypoglycemia secondary to UTI and possible pneumonia versus pulmonary fibrosis flare. But now she feels short of breath at rest. She denies any recent fevers, chills, worsened cough compared to her baseline, there has not been a change in her sputum production. She denies any abdominal pain, nausea, vomiting, dysuria, or urinary frequency. Her shortness of breath get significantly worse when lying flat. She is typically on 2 to 2.5 L at home at rest. Patient is a resident at [facility], uses a walker at baseline. In the emergency room, patient was hypoxic on her usual dosing of 2 L supplemental oxygen into the upper 80s. She is requiring an increase of oxygen at rest up to 4 L now. She was also mildly hypertensive and mildly tachypneic, but not tachycardic. Labs were notable for leukocytosis of 16.8, hemoglobin of 8.6, platelets were normal at 258. D-dimer was negative for her age of 89. Chemistry showed a creatinine of 1.69, it is unclear what her baseline creatinine is. Lactate was unremarkable and 0.6. Procalcitonin was negative at less than 0.05. Troponin was negative. ProBNP was elevated at 2140. COVID-19 testing was negative. Urinalysis was performed which showed positive leuk esterase and nitrate, with many urine bacteria. EKG was unremarkable. Chest x-ray showed bilateral airspace opacities more prominent in the left. ER wanted to perform CTA chest to rule out pulmonary embolism, but patient went for the study and became too anxious and claustrophobic. She now is refusing further CT imaging, however D-dimer was sent and was negative for her age as noted above. Patient is admitted to Medicine under inpatient status for acute on chronic hypoxemic respiratory failure. Discharge Providers Provider Date of admission: 05/05/20 14:54 Discharge Date: 05/07/20 Consults: 05/05/20 11:02 Consult to Respiratory Therapy Evaluate & Treat Comment: Physician Instructions: Evaluate and treat 05/05/20 16:50 Consult to Dietitian, Adult Routine Comment: Reason For Exam: weight loss with no loss of appetite 05/05/20 17:09 Consult to Occupational Therapy Evaluate & Treat Comment: Physician Instructions: Evaluate and treat Consult to Physical Therapy Evaluate & Treat Comment: Physician Instructions: Evaluate and Treat 05/06/20 11:04 Consult to Home Health Routine Comment: Reason For Exam: Home Health RN, P.T, O.T. Discharge provider: Minnie Randle DO Summary Hospital Course Discharge Diagnosis: 1. Acute on chronic hypoxemic respiratory failure, present on admission. Acute portion resolved. 2. Newly diagnosed stage II diastolic congestive heart failure with exacerbation, present on admission. Acute exacerbation resolved. 3. Acute Enterobacter cloacae UTI, present on admission. Resolving. 4. Chronic kidney disease stage 3, present on admission. HECTOR ruled out. 5. Pulmonary fibrosis with history of cor pulmonale and now mild exacerbation, present on admission. Acute exacerbation of pulmonary fibrosis resolving. 6. Diabetes mellitus type 2, not medically treated, chronic, present on admission. Stable. 7. History of prior CVA and hyperlipidemia, chronic, present on admission. Stable. 8. Hypertension, chronic present on admission. Stable. 9. Dementia with behavioral disturbance, chronic, present on admission. Stable. 10. Depression and anxiety, chronic, present on admission. Stable. Hospital Course: Elise Lagunas is an 79-year-old female with past medical history of dementia, type 2 diabetes no longer on any therapies, prior CVA without deficits, chronic kidney disease, hyperlipidemia, hypertension, depression and anxiety, and pulmonary fibrosis with cor pulmonale presented to the ED with progressive worsening shortness of breath x2 days. 1. Acute on chronic hypoxemic respiratory failure, present on admission. Acute portion resolved. -Patient was previously admitted in November to [facility] in [place]. Extensive discharge summary was reviewed. She was treated for a possible pneumonia and mild exacerbation of her pulmonary fibrosis with steroids at that time. She also had evidence of right ventricular dysfunction on an echocardiogram. She was supposed to follow-up with outpatient pulmonology, Dr Johnson, but never did according to the records. Patient states that she does not have a lung doctor. -Patient's hypoxemia likely due to newly diagnosed diastolic CHF with exacerbation as below. Pneumonia is unlikely given no recent fevers or changes in cough. She received ceftriaxone for acute cystitis as below which partially covered less likely lung source. D-dimer adjusted for age was negative and venous Doppler ultrasound of lower extremities was negative therefore likelihood of PE is very low. Patient refused further imaging with CT scan of chest which would have been helpful to further delineate cause of hypoxemia. -Received prednisone 60 mg x 2 doses and decreased to 40 mg daily for 3 additional doses to complete treatment of mild exacerbation of pulmonary fibrosis. -COVID-19 negative. -Continued respiratory therapy evaluation and treatment. Continue supplemental oxygen as necessary to maintain oxygen saturations 88-92%. Patient initially required 4-6 L at rest to maintain oxygen saturation 88-92% which was increased from baseline. Patient was diuresed as below and is back on her baseline home oxygen requirement of 2-3 L at rest and 3-4 L with ambulation. 2. Newly diagnosed stage II diastolic congestive heart failure with exacerbation, present on admission. Acute exacerbation resolved. -Patient presented with shortness of breath, mild JVD and peripheral edema. -ProBNP elevated at 2140. -Chest x-ray demonstrated low lung volumes with atelectasis superimposed on pulmonary fibrosis. -Echocardiogram demonstrated LV normal size, thickness, and systolic function with EF 65-70%, no focal wall motion abnormalities, stage II diastolic dysfunction, RV normal size and function, left atrium moderately dilated, no hemodynamically significant valvular abnormalities. -Received furosemide 40 mg IV in ED with good diuresis of approximately 2 L. Continued IV diuresis with furosemide 40 mg IV twice daily and discharged on furosemide 40 mg daily to maintain euvolemia. -Continued to monitor strict I&Os and daily weights. Net -2.7 L. 3. Acute Enterobacter cloacae UTI, present on admission. Resolving. -Patient denied symptoms but is an unreliable historian due to dementia. -Initial WBC 16.8 and trended down to 11.9. Procalcitonin negative < 0.05. Patient's WBC elevated to 21.9 today likely due to glucocorticoids. Continue to monitor WBC daily. -Urine culture grew Enterobacter cloacae sensitive to ceftriaxone. Continued ceftriaxone 1 g IV daily x2 days and discharged on cefdinir 300 mg daily for 5 additional days to complete 7 days of treatment. 4. Chronic kidney disease stage 3, present on admission. HECTOR ruled out. -Initial creatinine 1.69. Baseline creatinine 1.6-1.7. Creatinine trended up to 1.83 and back down to 1.69. -Continued to avoid nephrotoxic agents and renally dose medications. -Continued to monitor creatinine daily. 5. Pulmonary fibrosis with history of cor pulmonale and now mild exacerbation, present on admission. Acute exacerbation of pulmonary fibrosis resolving. -Prior imaging noted in her discharge paperwork from [facility] has shown bilateral ground-glass opacities and fibrosis. Patient refused further CT imaging of lungs as discussed above. -Received prednisone 60 mg x 2 doses and decreased to 40 mg daily for 3 additional doses to complete treatment of mild exacerbation of pulmonary fibrosis. 6. Diabetes mellitus type 2, not medically treated, chronic, present on admission. Stable. -Hemoglobin A1c 6.1% indicative of excellent glycemic control and in the range of prediabetes. Patient is not medically treated for diabetes per discharge paperwork from [facility] in which she was admitted there for hypoglycemia after she received Lantus. -Continued [facility] blood glucose checks and low-dose correctional scale insulin while hospitalized. 7. History of prior CVA and hyperlipidemia, chronic, present on admission. Stable. -Continued Aggrenox daily at bedtime and atorvastatin 40 mg daily at bedtime. 8. Hypertension, chronic present on admission. Stable. -Continued home amlodipine 10 mg daily, carvedilol 12.5 mg twice daily and hydralazine 50 mg twice daily. 9. Dementia with behavioral disturbance, chronic, present on admission. Stable. -Continued home quetiapine 25 mg daily in the evening and rivastigmine 4.5 mg in the morning, 1.5 mg in the afternoon and 4.5 mg in the evening. -Per prior documentation from [facility] she has waxing and waning mentation. Patient discusses desire to but has no suicidal ideation or plan and this is likely her baseline per records. 10. Depression and anxiety, chronic, present on admission. Stable. -Patient discusses desire to but has no suicidal ideation or plan and this is likely her baseline per records. -Continued home hydroxyzine 50 mg twice daily as needed for anxiety. Exam Vital Signs (past 8 hours): Oxygen Delivery Method Nasal Cannula Oxygen Flow Rate 2 Narrative Exam Narrative: General: Elderly female sitting in bed and in no acute distress, well-developed, well-nourished, moderate to severe dementia, depressed mood and highly anxious otherwise appropriately interactive. HEENT: Normocephalic, atraumatic. External ears without defect. Pupils equal, round, and reactive to light. Anicteric sclerae, moist conjunctivae, and no lid lag. Oropharynx free of erythema and cobble stoning with moist mucosa. Neck: Supple with full range of motion. No jugular venous distension. No lymphadenopathy or thyromegaly. Cardiovascular: Regular rate and rhythm without murmurs, rubs, or gallops appreciated Pulmonary: Diminished throughout with a occasional fine crackle and end-expiratory wheeze. No rhonchi. Normal respiratory effort with no use of accessory muscles. Abdomen: Soft, bowel sounds present, nontender, nondistended. No hepatosplenomegaly or masses appreciated. Extremities: No clubbing, cyanosis, or edema. Skin: Normal temperature, turgor, and texture; no rash, ulcers, or subcutaneous nodules appreciated. Neurological: Cranial nerves grossly intact. Psychiatric: Depressed and anxious mood, normal affect. Alert and oriented to person only. Moderate to severe dementia with short and long-term memory recall deficit. Desires to but no suicidal ideation or plan. Objective Labs Result Diagrams: 05/07/20 05:50 05/07/20 05:50 Labs: Laboratory Results - last 24 hr 05/07/20 05/07/20 05:50 05:50 Hemoglobin A1c 6.1 H Procalcitonin < 0.05 Discharge Plan Discharge Plan Patient Disposition: Assisted Living Transfer to: [facility] Under care of provider: integrity director Discharge orders & Medications Discharge Orders: Discharge (Order); Ordered 05/07/20 Ordered By: Minnie Randle Prescriptions: New furosemide 40 mg Tablet 40 mg PO DAILY Qty: 30 RF: 0 cefdinir 300 mg capsule 300 mg PO DAILY Qty: 5 RF: 0 prednisone 20 mg tablet 40 mg PO DAILY Qty: 4 RF: 0 Continued quetiapine 25 mg Tablet 25 mg PO QPM RF: 0 rivastigmine tartrate 1.5 mg Capsule 3 mg PO BID RF: 0 rivastigmine tartrate 1.5 mg Capsule 1.5 mg PO TID RF: 0 atorvastatin 40 mg Tablet 40 mg PO BEDTIME RF: 0 aspirin-dipyridamole [Aggrenox] 25-200 mg Capsule, Er Multiphase 12 Hr 1 cap PO BEDTIME RF: 0 carvedilol 12.5 mg Tablet 12.5 mg PO BID RF: 0 albuterol sulfate 2.5 mg /3 mL (0.083 %) Solution For Nebulization 2.5 mg INHALATION BID RF: 0 nutritional supplements Liquid 1 ea PO QPM RF: 0 allopurinol 100 mg tablet 100 mg PO QAM RF: 0 psyllium Powder 0.5 tsp PO DAILY RF: 0 amlodipine 10 mg tablet 10 mg PO QAM RF: 0 hydralazine 50 mg Tablet 50 mg PO BID RF: 0 escitalopram oxalate 20 mg Tablet 20 mg PO DAILY RF: 0 artifi.tears(hypromellose)(PF) 0.3 % Drops 2 drp OPHTHALMIC (EYE) TID RF: 0 hydroxyzine HCl 50 mg Tablet 50 mg PO BID PRN (Reason: anxiety / agitation. ) RF: 0 albuterol sulfate 90 mcg/actuation Aerosol Powdr Breath Activated 2 inh INHALATION Q6H PRN (Reason: Shortness Of Breath) RF: 0 Diet/Activity/Treatments Diet: Low-fat, Low-sodium and Low-cholesterol [facility] Rehab type: Physical therapy and Occupational therapy Visit Report/Discharge Packet Instructions: Dementia Visit Report Forms: Congestive Heart Failure, Patient Portal/API, Stroke Signs & Symptoms Discharges patient from system. Discharge Date/Time: 05/07/20 13:37 Quality VTE Deep Vein Thrombosis/Pulmonary Embolism Present on Admission: No
[2020-05-07 08:45] VITALS: BP 151/75; PULSE 71; RESP 21; TEMP 36.1; O2SAT 93
--- NOTE | 2020-05-07 09:09 | CM.DPC ---
Addendum entered by Ana Cristina Caraballo LPN 05/07/20 13:20: David arrived to transport pt back to [place]. He was not told o2 tank was needed by Tiffanie and he has called her and returned to the facility to retrieve a tank. Called Abebe as was unable to get through to Tiffanie. He confirmed that the team was aware and that David would be here shortly with the tank. He noted there was some confusion as pt does not usually go out to her doctor appts (spouse takes her) with oxygen and she does not always use it in the facility. SAIRA Torres is aware. Pt is up in the transport chair and all paperwork has been completed. Addendum entered by Ana Cristina Caraballo LPN 05/07/20 10:01: Have left a vm now for spouse Peter: [phone] re the d/c details. Addendum entered by Ana Cristina Caraballo LPN 05/07/20 09:58: Recent COIVD test results/date is within their guidelines: confirmed now by Tiffanie. She will call to confirm the 1300 van time. Will follow prn Addendum entered by Ana Cristina Caraballo LPN 05/07/20 09:31: DC orders are now in place, signed and faxed to [place]. Have spoken with pt (who is very [place]) and will call her after rounds with update. Tiffanie is checking on what she may need for COVID. At this point: plan is for d/c today at 1300: [facility] SAIRA Torres is aware. Original Note: DCP: assessment: case received, EMR reviewed. Dr. Randle states pt is ready for a return to [facility] and her d/c order is in process. COVID-19: -: 05/05 1130. Have spoken with Tiffanie/Lilly: she confirms Abebe will be here by 1100 for the assessment and will plan on a transport per w/c van with 02. Will check in with pt, call her with d/c details and follow prn until pt leaves. Tiffanie stated she had no clinical notes yet for this stay. Jono Garcia will fax these to her this morning.
[2020-05-07 09:13] LABS: Procalcitonin < 0.05 ng/mL (<0.5)
[2020-05-07] MEDS: carvediloL 12.5 MG TABLET PO (09:48)
[2020-05-07] MEDS: INSULIN ASPART 100 UNIT/ML INSULN PEN SUBCUT ×2 (09:48→12:06)
[2020-05-07] MEDS: ENOXAPARIN 30 MG/0.3 ML SYRINGE SUBCUT (09:48)
[2020-05-07] MEDS: HYDRALAZINE 25 MG TABLET 50 MG PO (09:48)
[2020-05-07] MEDS: allopurinoL 100 MG TABLET PO (09:48)
[2020-05-07] MEDS: AMLODIPINE 5 MG TABLET 10 MG PO (09:48)
[2020-05-07] MEDS: POLYVINYL ALCOHOL DROPS 2 DROPS EYE-BOTH (09:49)
[2020-05-07] MEDS: predniSONE 20 MG TABLET 40 MG PO (09:49)
[2020-05-07] MEDS: ESCITALOPRAM 10 MG TABLET 20 MG PO (09:50)
[2020-05-07] MEDS: FUROSEMIDE 40 MG TABLET PO (09:50)
[2020-05-07] MEDS: SODIUM CHLORIDE 0.9% FLUSH 10 ML IV (09:50)
[2020-05-07 09:51] LABS: Hemoglobin A1C% w Est Avg Glu 6.1 % (4.0-6.0)
--- NOTE | 2020-05-07 11:20 | PC.NURSE ---
Addendum entered by Melissa Mederos R.N. 05/07/20 13:36: Patient transported via wheelchair back to facility on 2.5L O2. Belongings and education given to patient. Spoke with Abebe (facility caregiver) earlier today, he is aware patient will be returning with new Rx. Those Rx and educational packet given to facility designee on pick-up. Patient tolerated transfer. Addendum entered by Melissa Mederos R.N. 05/07/20 12:31: Patient had post lópez void, 200 ml, up to BSC. +flatus, no BM. Brief on. IV removed. Tele off for D/C. Belongings and call light in reach. Patient denies further needs at this time. Original Note: Patient A/O x3, Up to chair with 1p assist and FWW. Eating breakfast with set up assist. López removed at 1000. Patient tolerated. Back to bed at 1030. Lungs diminished bilaterally, 2L NC, patient remains >90% Tele, SCD's bilaterally, saline locked. Patient denies pain or further needs at this time. Call light in reach. Bed alarm on.
--- NOTE | 2020-05-07 11:24 | PT-IP ANOTE ---
checked on pt x2 and refused PT. pt initially stated that she is depress and does not want to do PT. checked back on pt and stated that she is going back to [place] at 1 pm and just wants to rest and does not want PT.
[2020-05-07 11:42] VITALS: BP 150/60; PULSE 62; RESP 19; TEMP 36.4; O2SAT 97
[2020-05-07 11:55] VITALS: O2SAT 97
== END 2020-05-07 13:37 | DRG 291 ==
LOC: ED 14:49 → AC 15:29
PROVIDERS: Internal Medicine; Admitting Provider Internal Medicine; Emergency Provider Emergency Medicine; Referring Provider Emergency Medicine; Visit Provider Internal Medicine
DX: I13.0 Hypertensive heart and chronic kidney disease with heart failure and stage 1 through stage 4 chronic kidney disease, or unspecified chronic kidney disease (principal); J96.21 Acute and chronic respiratory failure with hypoxia; I50.31 Acute diastolic (congestive) heart failure; N30.00 Acute cystitis without hematuria; Z99.81 Dependence on supplemental oxygen; J84.10 Pulmonary fibrosis, unspecified; N18.3 Chronic kidney disease, stage 3 (moderate); E11.22 Type 2 diabetes mellitus with diabetic chronic kidney disease; E78.5 Hyperlipidemia, unspecified; F03.90 Unspecified dementia, unspecified severity, without behavioral disturbance, psychotic disturbance, mood disturbance, and anxiety; F32.9 Major depressive disorder, single episode, unspecified; F41.9 Anxiety disorder, unspecified; B96.89 Other specified bacterial agents as the cause of diseases classified elsewhere; Z86.73 Personal history of transient ischemic attack (TIA), and cerebral infarction without residual deficits; Z66 Do not resuscitate; Z11.59 Encounter for screening for other viral diseases
CPT/HCPCS: 36415; 71045; 71275; 80048; 80053; 80076; 81001; 82550; 82728; 82962; 83036; 83605; 83615; 83735; 83880; 84145; 84484; 85025; 85379; 85610; 85730; 87040; 87077; 87086; 87186; 87635; 93005; 93306; 93970; 94762; 96374; 97162; 97165; 99285; J1650; J1940; Q9967

== ENCOUNTER → 2020-05-18 08:32 | Outpatient (ROUT) | payer MEDICARE, MEDICAID, SELFPAY ==
[2020-05-05 16:39] VITALS: BMI 27.8
[2020-05-18 08:48] LABS: Add Manual Diff / Slide Review YES; Hemoglobin 8.5 g/dL (12.0-16.0); Mean Corpuscular HGB Conc 31.4 % (30-36); Mean Corpuscular Hemoglobin 29.6 PG (26-34); Mean Corpuscular Volume 94.2 fL (80-100); Platelet Count 213 X10^3/uL (150-400); Red Blood Cell Count 2.87 X10^6/uL (4.0-5.2); Red Cell Distribution Width 15.8 % (11.6-14.8); White Blood Cell Count 18.9 X10^3/uL (4.5-11.0)
[2020-05-18 08:54] LABS: BUN Creatinine Ratio 27.2 (6-22); Blood Urea Nitrogen 47 mg/dL (7-17); Calcium 8.1 mg/dL (8.4-10.2); Carbon Dioxide 26 mmol/L (22-32); Chloride 107 mmol/L (98-107); Cholesterol 95 mg/dL (140-199); Estimated Glomerular Filt Rate 28.3 mL/min (>60); Glucose 151 mg/dL (80-110); HDL Cholesterol 30 mg/dL (40-60); HEMOLYSIS < 15 (0-50); LDL Cholesterol Calculated 36 mg/dL (<100); Potassium 4.1 mmol/L (3.4-5.1); Sodium 139 mmol/L (137-145); Triglycerides 145 mg/dL (35-150); Uric Acid 10.3 mg/dL (2.5-6.2)
[2020-05-18 09:03] LABS: Anisocytosis 1+; Hemoglobin A1C% w Est Avg Glu 6.8 % (4.0-6.0); Neutrophils Absolute Manual 6804 /uL (3000-5900); Total Cells Counted 100
== END ==
PROVIDERS: Visit Provider Nurse Practitioner Gerontology
DX: N18.9 Chronic kidney disease, unspecified (principal); E78.49 Other hyperlipidemia; M10.00 Idiopathic gout, unspecified site; D50.9 Iron deficiency anemia, unspecified; E11.9 Type 2 diabetes mellitus without complications
CPT/HCPCS: 80048; 80061; 83036; 84550; 85025

== ENCOUNTER → 2020-05-19 13:22 | Outpatient (ROUT) | payer MEDICARE, MEDICAID, SELFPAY ==
[2020-05-05 16:39] VITALS: BMI 27.8
[2020-05-21 09:08] LABS: COVID19 Sendout Not Detected (Not Detected)
== END ==
PROVIDERS: Visit Provider Internal Medicine
DX: Z20.828 Contact with and (suspected) exposure to other viral communicable diseases (principal)
CPT/HCPCS: 87635

== ENCOUNTER 2020-05-30 07:12 | Inpatient (IN) | payer MEDICARE, MEDICAID, SELFPAY ==
[2020-05-05 16:39] VITALS: BMI 27.8
[2020-05-30] VITALS (51 sets, daily range): BP systolic 69–136; BP diastolic 36–76; PULSE 64–113; RESP 7–42; TEMP 36.3–37.2; O2SAT 82–99
--- NOTE | 2020-05-30 07:24 | DI.CT.S_ITS ---
PROCEDURE: CT CERVICAL SPINE WO CON INDICATIONS: fall from bed, head injury TECHNIQUE: Noncontrast 3 mm thick sections acquired from the skull base to the T4 level. Sagittal and coronal reformats were then constructed. For radiation dose reduction, the following was used: automated exposure control, adjustment of mA and/or kV according to patient size. COMPARISON: [facility], CR, XR RIBS LT MIN 3V W CXR1V, 03/11/2020, 17:49. [facility], CR, XR CHEST 1V, 05/05/2020, 11:06. [facility], CT, CT HEAD/BRAIN WO CON, 05/30/2020, 7:37. FINDINGS: Image quality: Excellent. Bones: No fractures or dislocations. Visualized superior ribs are intact. Degenerative changes are seen, including moderate to severe disc space narrowing at the C5-C6 and C6-C7 levels. Mild posteriorly directed endplate osteophytes are seen at these levels. There is moderate disc space narrowing seen at C3-C4. There is minimal retrolisthesis seen at C3-C4. There is mild grade 1 anterolisthesis seen at C7-T1. Milder degenerative changes are seen elsewhere. Soft tissues: Patchy areas ground-glass can seen lung apices. Prevertebral soft tissues are normal in thickness. No paravertebral hematomas. No apical pneumothoraces. Atherosclerotic calcification can be seen, particularly involving the left carotid bifurcation. Dense atherosclerotic calcification also seen There is partial visualization enlarged mediastinal nodes, including a prevascular lymph node measuring 24 x 9 mm. There is a prevascular lymph node measuring 13 x 13. IMPRESSION: No acute fractures are seen. Mildly enlarged mediastinal lymph nodes are partially seen. If clinically appropriate, please consider a follow-up chest CT with IV contrast for further evaluation. Patchy ground-glass opacities can be seen at the lung apices. Differential diagnosis includes pulmonary edema and viral/atypical infiltrate. Atelectasis is also possible. Cervical spine degenerative changes are seen, which are most prominent inferiorly. Dictated by: Donato Raphael M.D. on 05/30/2020 at 7:12 Approved by: Donato Raphael M.D. on 05/30/2020 at 7:16
--- NOTE | 2020-05-30 07:24 | DI.CT.S_ITS ---
PROCEDURE: CT HEAD/BRAIN WO CON INDICATIONS: fall from bed, head injury TECHNIQUE: Noncontrast 4.5 mm thick angled axial sections acquired from the foramen magnum to the vertex, with coronal and sagittal reformats. For radiation dose reduction, the following was used: automated exposure control, adjustment of mA and/or kV according to patient size. COMPARISON: [facility], CT, CT CERVICAL SPINE WO CON, 05/30/2020, 7:37. FINDINGS: Image quality: Diagnostic, with note made of motion artifact. CSF spaces: Basal cisterns are patent. No extra-axial fluid collections. The ventricles are symmetric in size and shape. Brain: Focal volume loss with encephalomalacia can be seen involving the right occipital lobe and a portion of the right temporal lobe. No intracranial bleeds or masses. There is cerebral volume loss for age, with resultant ventricular and sulcal prominence. There are periventricular and deep white matter chronic small vessel ischemic changes. There is intracranial internal carotid artery atherosclerosis. Skull and face: Calvarium and visualized facial bones appear intact, without suspicious lesions. 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 This is not considered to be pathologic in a woman of this age. 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 Sinuses: Visualized sinuses and mastoids are clear. IMPRESSION: No acute intracranial hemorrhage is seen. Remote right posterior cerebral hemisphere infarct. Left ocular prosthesis. Dictated by: Donato Raphael M.D. on 05/30/2020 at 7:17 Approved by: Donato Raphael M.D. on 05/30/2020 at 7:19
--- NOTE | 2020-05-30 07:25 | ED_ITS ---
HPI - General Adult General Chief complaint: Fall Stated complaint: Fall out of bed Time Seen by Provider: 05/30/20 07:15 History of Present Illness HPI narrative: 79-year-old woman who is [facility] after hospital admission and discharge in early May with a history of dementia, prior CVA, chronic kidney disease, hyperlipidemia, hypertension, pulmonary fibrosis, heart failure this morning, staff heard a funk and went to check on her and found her face down on the floor beside her bed with a bloody nose. They helped her up in shortly thereafter she had a moderate volume red bloody emesis. 9:12 call from [facility] to report that patient had an episode of hypotension last night with systolic blood pressure in the 80s. She was laid down relatively asymptomatic and presumption was made that the hypotension was due to hydralazine dose being too high and medication was adjusted. Related Data Home Medications Medication Instructions Recorded Confirmed albuterol sulfate 2 inh INHALATION Q6H PRN 05/05/20 05/05/20 albuterol sulfate 2.5 mg INHALATION BID 05/05/20 05/05/20 allopurinol 100 mg PO QAM 05/05/20 05/05/20 amlodipine 10 mg PO QAM 05/05/20 05/05/20 artifi.tears(hypromellose)(PF) 2 drp OPHTHALMIC (EYE) TID 05/05/20 05/05/20 aspirin-dipyridamole [Aggrenox] 1 cap PO BEDTIME 05/05/20 05/05/20 atorvastatin 40 mg PO BEDTIME 05/05/20 05/05/20 carvedilol 12.5 mg PO BID 05/05/20 05/05/20 escitalopram oxalate 20 mg PO DAILY 05/05/20 05/05/20 hydralazine 50 mg PO BID 05/05/20 05/05/20 hydroxyzine HCl 50 mg PO BID PRN 05/05/20 05/05/20 nutritional supplements 1 ea PO QPM 05/05/20 05/05/20 psyllium 0.5 tsp PO DAILY 05/05/20 05/05/20 quetiapine 25 mg PO QPM 05/05/20 05/05/20 rivastigmine tartrate 1.5 mg PO TID 05/05/20 05/05/20 rivastigmine tartrate 3 mg PO BID 05/05/20 05/05/20 Previous Rx's Medication Instructions Recorded cefdinir 300 mg PO DAILY #5 cap 05/07/20 furosemide 40 mg PO DAILY #30 tab 05/07/20 prednisone 40 mg PO DAILY #4 tab 05/07/20 Allergies Allergy/AdvReac Type Severity Reaction Status Date / Time gabapentin Allergy Verified 05/05/20 11:13 hydrocodone Allergy Verified 05/05/20 11:13 tomato Allergy Verified 05/05/20 11:13 Review of Systems Review of Systems Narrative: Review of systems is unable to be obtained, patient is unable to focus or specifically answer questions she seems quite confused. Unclear if this is altered mental status or baseline. Patient History Medical History (Updated 05/30/20 @ 09:40 by Libertad Mehta MD) CHF (congestive heart failure) (Acute) CKD (chronic kidney disease) (Acute) CVA (cerebral vascular accident) (Acute) Dementia (Acute) Eye globe prosthesis (Acute) Pulmonary fibrosis (Acute) Right ventricular dysfunction (Acute) Type 2 diabetes mellitus (Acute) Social History household members: none Smoking Status: Never smoker alcohol intake: former Smoking Status: Never smoker Substance Use Type: does not use Exam Narrative Exam Narrative: General: Frail-appearing woman, acutely confused, hematoma to the left forehead with bleeding from the nostrils HEENT: Moist mucous membranes, hematoma over the left eyebrow with swelling developing over the eyebrow and eye and lid drooping over the eye. Left eye prosthesis, Right pupil is reactive Neck: No JVD, supple Respiratory: Lungs are clear to auscultation with shallow respiratory effort, no wheezing minor crackles in lower lung diaz Cardiac: Regular rate and rhythm no murmurs no bruits Abdomen: Soft nontender good bowel tones, no flank pain Skin: Pale, good capillary refill Neurologic: Moaning and picking at bedding, able to answer yes or no to specific questions such as pain, globally weak and complaining of being cold. Two week and to cognitively impaired in formal NIH testing but no obvious focal neurologic abnormality Extremities: No trauma aside from the hematoma to the left forehead Psych: Altered mental status with dementia and the unknown baseline Initial Vital Signs Initial Vital Signs: Vital Signs Temperature 97.5 F L 05/30/20 07:25 Pulse Rate 91 H 05/30/20 07:25 Respiratory Rate 20 05/30/20 07:25 Blood Pressure 102/76 05/30/20 07:25 Pulse Oximetry 90 L 05/30/20 07:25 Course Orders Ordered: ED Orders 05/30/20 07:15 Complete Blood Count AUTO DIFF Stat Comprehensive Metabolic Panel Stat Lactate (Lactic Acid) Stat Procalcitonin Stat Type and Screen Stat 05/30/20 07:24 CT cervical spine wo con Stat CT head/brain wo con Stat 05/30/20 08:20 Urinalysis and Microscopic Stat Urine Culture Stat 05/30/20 08:21 XR chest 1V Stat 05/30/20 08:46 Blood Culture Stat 06/03/20 08:30 Vancomycin Trough Urgent Vancomycin HCl (Vancomycin) 1,000 mg in 200 mls @ 200 mls/hr IV Q48H CAMILO Vancomycin HCl (Vancomycin Trough) 1 request MISC NOW ONE Stop: 06/03/20 08:31 Discontinued Medications Sodium Chloride (Normal Saline 0.9%) 1,000 mls @ 1,000 mls/hr IV BOLUS ONE Stop: 05/30/20 08:22 Last Infusion: 05/30/20 09:41 Dose: 0 mls/hr Documented by: Admin: 05/30/20 07:30 Dose: 1,000 mls/hr Documented by: GERHARD Piperacillin/Tazobactam/Dextrose (Zosyn) 3.375 gm in 50 mls @ 100 mls/hr IV NOW ONE Stop: 05/30/20 09:01 Last Admin: 05/30/20 08:55 Dose: Not Given Documented by: GERHARD Piperacillin/Tazobactam/Dextrose (Zosyn) 2.25 gm in 50 mls @ 100 mls/hr IV NOW ONE Stop: 05/30/20 09:14 Last Infusion: 05/30/20 10:01 Dose: 0 mls/hr Documented by: Admin: 05/30/20 09:18 Dose: 100 mls/hr Documented by: ABY Ondansetron HCl (Zofran) 4 mg IV NOW ONE Stop: 05/30/20 07:24 Last Admin: 05/30/20 07:30 Dose: 4 mg Documented by: GERHARD Vancomycin HCl (Vancomycin Per Pharmacy) 1 request MISC NOW ONE Stop: 05/30/20 08:28 Last Admin: 05/30/20 08:54 Dose: Not Given Documented by: GERHARD Vital Signs Vital signs: Vital Signs - 8 hr 05/30/20 07:25 05/30/20 07:36 05/30/20 07:37 Temperature 97.5 F L Pulse Rate 91 H 73 71 Respiratory Rate 20 14 20 Blood Pressure 102/76 103/54 L Pulse Oximetry 90 L 96 97 05/30/20 07:53 05/30/20 07:55 05/30/20 07:56 Temperature Pulse Rate 68 66 84 Respiratory Rate 7 L 14 Blood Pressure 103/54 L Pulse Oximetry 97 99 98 05/30/20 08:00 05/30/20 08:05 05/30/20 08:10 Temperature Pulse Rate 64 71 78 Respiratory Rate 12 14 41 H Blood Pressure Pulse Oximetry 96 92 83 L 05/30/20 08:15 05/30/20 08:20 05/30/20 08:25 Temperature Pulse Rate 72 79 72 Respiratory Rate 20 24 18 Blood Pressure Pulse Oximetry 89 L 84 L 95 05/30/20 08:30 05/30/20 08:44 05/30/20 08:45 Temperature Pulse Rate 68 67 65 Respiratory Rate 25 H 16 22 Blood Pressure 109/55 L 121/56 L Pulse Oximetry 97 05/30/20 09:00 05/30/20 09:30 Temperature Pulse Rate 69 67 Respiratory Rate 20 18 Blood Pressure Pulse Oximetry 95 96 Medical Decision Making Medical Records Medical records reviewed: Yes I reviewed the patient's medical records. Lab Data Lab results reviewed: Yes I reviewed the patient's lab results. Result diagrams: 05/30/20 07:15 05/30/20 07:15 Labs: Lab Results 05/30/20 05/30/20 05/30/20 Range/Units 07:15 07:15 07:15 WBC 30.8 H* (4.5-11.0) X10^3/uL RBC 2.54 L (4.0-5.2) X10^6/uL Hgb 7.4 L (12.0-16.0) g/dL Hct 24.3 L (36-46) % MCV 95.8 (80-100) fL MCH 29.2 (26-34) PG MCHC 30.5 (30-36) % RDW 15.2 H (11.6-14.8) % Plt Count 273 (150-400) X10^3/uL Neut % (Auto) Not Reportable Lymph % (Auto) Not Reportable [place] % (Auto) Not Reportable Eos % (Auto) Not Reportable Baso % (Auto) Not Reportable Lymph # (Auto) Not Reportable [place] # (Auto) Not Reportable Baso # (Auto) Not Reportable Total Counted 100 Seg Neutrophils % 27.0 L (38-70) % Band Neutrophils % 7.0 (3-7) % Lymphocytes % (Manual) 53.0 H (25-45) % Atypical Lymphs % 9.0 H ( - 0) % Monocytes % (Manual) 2.0 (2-11) % Eosinophils % (Manual) 2.0 (2-4) % Neutrophils # (Manual) 78779 H (3768-1655) /uL Smudge Cells 1+ H RBC Morphology See below Anisocytosis 2+ H Sodium 138 (137-145) mmol/L Potassium 5.3 H (3.4-5.1) mmol/L Chloride 102 (98-107) mmol/L Carbon Dioxide 24 (22-32) mmol/L BUN 81 H (7-17) mg/dL Creatinine 1.97 H (0.52-1.04) mg/dL Estimated GFR 24.3 L (>60) mL/min BUN/Creatinine Ratio 41.1 H (6-22) Glucose 206 H (80-110) mg/dL Lactate (0.7-2.1) mmol/L Calcium 8.4 (8.4-10.2) mg/dL Total Bilirubin 0.5 (0.2-1.3) mg/dL AST 21 (14-36) IU/L ALT 12 (<35) IU/L Alkaline Phosphatase 59 (38-126) U/L Total Protein 6.0 L (6.3-8.2) g/dL Albumin 3.4 L (3.5-5.0) g/dL Globulin 2.6 (1.7-4.1) g/dL Albumin/Globulin Ratio 1.3 (1.0-2.8) Procalcitonin (<0.5) ng/mL Urine Color Urine Appearance Urine pH (4.5-8.0) Ur Specific [place] (1.000-1.035) Urine Protein (Negative) Urine Glucose (UA) (Negative) g/dL Urine Ketones (NEGATIVE) Urine Occult Blood (Negative) Urine Nitrate (Negative) Urine Bilirubin (NEGATIVE) Urine Urobilinogen (0.2) E.U./dL Ur Leukocyte Esterase (NEGATIVE) Urine RBC (0-5/HPF) Urine WBC (0-5/HPF) Ur Squamous Epith Cells (0-5/HPF) Urine Bacteria (None) Ur Culture Indicated? COVID-19 PCR (Negative) Blood Type O Negative Antibody Screen Negative 05/30/20 05/30/20 05/30/20 Range/Units 07:15 07:15 08:20 WBC (4.5-11.0) X10^3/uL RBC (4.0-5.2) X10^6/uL Hgb (12.0-16.0) g/dL Hct (36-46) % MCV (80-100) fL MCH (26-34) PG MCHC (30-36) % RDW (11.6-14.8) % Plt Count (150-400) X10^3/uL Neut % (Auto) Lymph % (Auto) [place] % (Auto) Eos % (Auto) Baso % (Auto) Lymph # (Auto) [place] # (Auto) Baso # (Auto) Total Counted Seg Neutrophils % (38-70) % Band Neutrophils % (3-7) % Lymphocytes % (Manual) (25-45) % Atypical Lymphs % ( - 0) % Monocytes % (Manual) (2-11) % Eosinophils % (Manual) (2-4) % Neutrophils # (Manual) (7850-3620) /uL Smudge Cells RBC Morphology Anisocytosis Sodium (137-145) mmol/L Potassium (3.4-5.1) mmol/L Chloride (98-107) mmol/L Carbon Dioxide (22-32) mmol/L BUN (7-17) mg/dL Creatinine (0.52-1.04) mg/dL Estimated GFR (>60) mL/min BUN/Creatinine Ratio (6-22) Glucose (80-110) mg/dL Lactate 4.1 H* (0.7-2.1) mmol/L Calcium (8.4-10.2) mg/dL Total Bilirubin (0.2-1.3) mg/dL AST (14-36) IU/L ALT (<35) IU/L Alkaline Phosphatase (38-126) U/L Total Protein (6.3-8.2) g/dL Albumin (3.5-5.0) g/dL Globulin (1.7-4.1) g/dL Albumin/Globulin Ratio (1.0-2.8) Procalcitonin < 0.05 (<0.5) ng/mL Urine Color Yellow Urine Appearance Sl cloudy Urine pH 5.5 (4.5-8.0) Ur Specific [place] 1.020 (1.000-1.035) Urine Protein Negative (Negative) Urine Glucose (UA) Negative (Negative) g/dL Urine Ketones Negative (NEGATIVE) Urine Occult Blood Negative (Negative) Urine Nitrate Positive H (Negative) Urine Bilirubin Negative (NEGATIVE) Urine Urobilinogen 0.2 (0.2) E.U./dL Ur Leukocyte Esterase 2+ H (NEGATIVE) Urine RBC 0-1/hpf (0-5/HPF) Urine WBC 10-30/hpf H (0-5/HPF) Ur Squamous Epith Cells 0-1 /hpf (0-5/HPF) Urine Bacteria Many (>30) H (None) Ur Culture Indicated? Specimen cultured COVID-19 PCR (Negative) Blood Type Antibody Screen 05/30/20 Range/Units 08:45 WBC (4.5-11.0) X10^3/uL RBC (4.0-5.2) X10^6/uL Hgb (12.0-16.0) g/dL Hct (36-46) % MCV (80-100) fL MCH (26-34) PG MCHC (30-36) % RDW (11.6-14.8) % Plt Count (150-400) X10^3/uL Neut % (Auto) Lymph % (Auto) [place] % (Auto) Eos % (Auto) Baso % (Auto) Lymph # (Auto) [place] # (Auto) Baso # (Auto) Total Counted Seg Neutrophils % (38-70) % Band Neutrophils % (3-7) % Lymphocytes % (Manual) (25-45) % Atypical Lymphs % ( - 0) % Monocytes % (Manual) (2-11) % Eosinophils % (Manual) (2-4) % Neutrophils # (Manual) (8231-4032) /uL Smudge Cells RBC Morphology Anisocytosis Sodium (137-145) mmol/L Potassium (3.4-5.1) mmol/L Chloride (98-107) mmol/L Carbon Dioxide (22-32) mmol/L BUN (7-17) mg/dL Creatinine (0.52-1.04) mg/dL Estimated GFR (>60) mL/min BUN/Creatinine Ratio (6-22) Glucose (80-110) mg/dL Lactate (0.7-2.1) mmol/L Calcium (8.4-10.2) mg/dL Total Bilirubin (0.2-1.3) mg/dL AST (14-36) IU/L ALT (<35) IU/L Alkaline Phosphatase (38-126) U/L Total Protein (6.3-8.2) g/dL Albumin (3.5-5.0) g/dL Globulin (1.7-4.1) g/dL Albumin/Globulin Ratio (1.0-2.8) Procalcitonin (<0.5) ng/mL Urine Color Urine Appearance Urine pH (4.5-8.0) Ur Specific [place] (1.000-1.035) Urine Protein (Negative) Urine Glucose (UA) (Negative) g/dL Urine Ketones (NEGATIVE) Urine Occult Blood (Negative) Urine Nitrate (Negative) Urine Bilirubin (NEGATIVE) Urine Urobilinogen (0.2) E.U./dL Ur Leukocyte Esterase (NEGATIVE) Urine RBC (0-5/HPF) Urine WBC (0-5/HPF) Ur Squamous Epith Cells (0-5/HPF) Urine Bacteria (None) Ur Culture Indicated? COVID-19 PCR Negative (Negative) Blood Type Antibody Screen Imaging Data CT scan - head: Radiologist's Impression: IMPRESSION: No acute intracranial hemorrhage is seen. Remote right posterior cerebral hemisphere infarct. Left ocular prosthesis. Dictated by: Donato Raphael M.D. on 05/30/2020 at 7:17 CT - cervical spine: Radiologist's Impression: IMPRESSION: No acute fractures are seen. Mildly enlarged mediastinal lymph nodes are partially seen. If clinically appropriate, please consider a follow-up chest CT with IV contrast for further evaluation. Patchy ground-glass opacities can be seen at the lung apices. Differential grace gnosis includes pulmonary edema and viral/atypical infiltrate. Atelectasis is also possible. Cervical spine degenerative changes are seen, which are most prominent inferiorly. Dictated by: Donato Raphael M.D. on 05/30/2020 at 7:12 Chest x-ray: Radiologist's Impression: FINDINGS: Surgical changes and devices: None. Lungs and pleura: Lung volumes are low. Patchy infiltrates are seen, particularly involving the left perihilar region and the right upper lung. Blunting of the left costophrenic angle is seen. No pneumothorax is seen. Mediastinum: Mediastinal contours appear normal. Heart size is normal. Bones and chest wall: No suspicious bony lesions. Age-appropriate bony degenerative changes are seen. Overlying soft tissues appear unremarkable. IMPRESSION: Improved patchy bilateral infiltrates are seen. Low lung volumes. Potential small left-sided pleural effusion. Dictated by: Donato Raphael M.D. on 05/30/2020 at 8:13 ECG Data Attestation: I personally reviewed and interpreted this ECG as follows: Interpretation: Sinus rhythm at 71 Normal interval, normal axis no acute ischemic changes MDM Narrative Medical decision making narrative: 79-year-old woman presents from [facility] with reports of nurses hearing her fall out of bed finding her on the floor covered with blood and a bloody emesis shortly thereafter. No additional history is available. Initial studies included a CT of the head and cervical spine both of which are unremarkable. As labs begin to return is noted to have white blood cell count of 30.8. She is afebrile but clearly has altered sensorium and is unclear if this is due to infection, fall or her baseline dementia. intermediate records indicate that she is a full code. Notes from hospitalization and discharged on May 07 he indicate waxing and waning mentation with patient expressing a desire to without active suicidal ideation. She is on quetiapine 25 mg in the evening and requesting 4.5 mg in the morning, 1.5 mg every afternoon and 4.5 mg in the evening. With lab work suggesting infection and will expand workup to include infectious etiology lactate, blood cultures urine (catheterized sample is obtained), chest x-ray and covid screening Notes from [facility] on May 05 indicate that she was alert and oriented with mild cognitive impairment with impaired short-term memory and normal affect. This is a significant change from today. Blood pressures had been in the 140 systolic and currently in the 100 systolic range now suggests moderate hypertension. New diagnosis of congestive heart failure along with pulmonary fibrosis and relative hypoxia at 90% on her usual rate of 2 L a minute suggest that fluid resuscitation needs to be carefully considered and a 30 per kilos bolus would likely be deleterious. Lactic acid returned at 4.1 and antibiotics in the form of Zosyn and vancomycin are initiated that she has had multiple recent hospital admissions and currently is in a retirement facility and no localized source of infection is yet identified Hospital admission is anticipated 850 with time and after a 500 cc bolus patient is much more cognitively aware. Slightly confused but states that she is here because she is ?sick. Urinalysis returns and she appears to have a urinary tract infection with leukocyte esterase, white blood cells and many bacteria. Chest x-ray is improved and does not show an obvious pneumonia. covid negative [address] Onofre. Will admit, inpatient. Discharge Plan Departure Patient Disposition: Admitted As Inpatient Clinical Impression: Acute alteration in mental status, Hemorrhage from nose Concussion without loss of consciousness Qualifiers: Encounter type: initial encounter Qualified Code(s): S06.0X0A - Concussion without loss of consciousness, initial encounter Sepsis Qualifiers: Sepsis type: sepsis due to unspecified organism Sepsis acute organ dysfunction status: unspecified Qualified Code(s): A41.9 - Sepsis, unspecified organism Urinary tract infection Qualifiers: Urinary tract infection type: acute cystitis Hematuria presence: without hematuria Qualified Code(s): N30.00 - Acute cystitis without hematuria Admit Date/Time: 05/30/20 09:39 Admit Provider: Cristóbal Onofre
[2020-05-30] MEDS: SODIUM CHLORIDE 0.9% 1,000 ML 1000 ML IV ×2 (07:30→12:19)
[2020-05-30] MEDS: ONDANSETRON 4 MG/2 ML INJ IV (07:30)
--- NOTE | 2020-05-30 07:30 | PC.NURSE ---
cervical collar placed in ED.
--- NOTE | 2020-05-30 07:33 | PC.NURSE ---
EMS reports patient vomited 300ml of blood into emesis bag in ambulance. Patient appears to have had a bloody nose. Dried blood in both nares and on the left side of her face and head. Patient has a 3cm circular hematoma on her left forehead above her left eye. Patient reports her left eye does not open on its own and when opened by staff appears cloudy and glazed over.
--- NOTE | 2020-05-30 08:07 | PC.NURSE ---
c collar cleared by Dr Mehta
[2020-05-30 08:08] LABS: Hematocrit 24.3 % (36-46); Hemoglobin 7.4 g/dL (12.0-16.0); Mean Corpuscular HGB Conc 30.5 % (30-36); Mean Corpuscular Hemoglobin 29.2 PG (26-34); Mean Corpuscular Volume 95.8 fL (80-100); Platelet Count 273 X10^3/uL (150-400); Red Blood Cell Count 2.54 X10^6/uL (4.0-5.2); Red Cell Distribution Width 15.2 % (11.6-14.8)
[2020-05-30 08:09] LABS: Add Manual Diff / Slide Review YES; White Blood Cell Count 30.8 X10^3/uL (4.5-11.0)
[2020-05-30 08:10] LABS: Alanine Aminotransferase 12 IU/L (<35); Albumin 3.4 g/dL (3.5-5.0); Albumin Globulin Ratio 1.3 (1.0-2.8); Alkaline Phosphatase 59 U/L (38-126); Aspartate Aminotransferase 21 IU/L (14-36); BUN Creatinine Ratio 41.1 (6-22); Bilirubin Total 0.5 mg/dL (0.2-1.3); Blood Urea Nitrogen 81 mg/dL (7-17); Calcium 8.4 mg/dL (8.4-10.2); Carbon Dioxide 24 mmol/L (22-32); Chloride 102 mmol/L (98-107); Estimated Glomerular Filt Rate 24.3 mL/min (>60); Globulin 2.6 g/dL (1.7-4.1); Glucose 206 mg/dL (80-110); HEMOLYSIS < 15 (0-50); Potassium 5.3 mmol/L (3.4-5.1); Sodium 138 mmol/L (137-145)
--- NOTE | 2020-05-30 08:21 | DI.RAD.S_ITS ---
PROCEDURE: XR CHEST 1V INDICATIONS: Altered mental status, elevated white count TECHNIQUE: One view of the chest was acquired. COMPARISON: [facility], CR, XR CHEST 1V, 05/05/2020, 11:06. FINDINGS: Surgical changes and devices: None. Lungs and pleura: Lung volumes are low. Patchy infiltrates are seen, particularly involving the left perihilar region and the right upper lung. Blunting of the left costophrenic angle is seen. No pneumothorax is seen. Mediastinum: Mediastinal contours appear normal. Heart size is normal. Bones and chest wall: No suspicious bony lesions. Age-appropriate bony degenerative changes are seen. Overlying soft tissues appear unremarkable. IMPRESSION: Improved patchy bilateral infiltrates are seen. Low lung volumes. Potential small left-sided pleural effusion. Dictated by: Donato Raphael M.D. on 05/30/2020 at 8:13 Approved by: Donato Raphael M.D. on 05/30/2020 at 8:14
--- NOTE | 2020-05-30 08:25 | PC.NURSE ---
ROVERTO Machado assisted with cath. Patient tolerated well. Brief in place was clean, placed new brief after cath.
[2020-05-30 08:29] LABS: Bilirubin Urine UA NEGATIVE (NEGATIVE); Color Urine UA YELLOW; Glucose Urine UA NEGATIVE (Negative); Ketones Urine UA NEGATIVE (NEGATIVE); Leukocyte Esterase Urine UA 2+ (NEGATIVE); Nitrite Urine UA POSITIVE (Negative); Occult Blood Urine UA NEGATIVE (Negative); Protein Urine UA NEGATIVE (Negative); Urobilinogen Urine UA 0.2 E.U./dL (0.2)
[2020-05-30 08:32] LABS: Lactate (Lactic Acid) 4.1 mmol/L (0.7-2.1)
[2020-05-30 08:42] LABS: Neutrophils Absolute Manual 10472 /uL (3000-5900); Total Cells Counted 100
[2020-05-30 08:43] LABS: Anisocytosis 2+; Smudge Cells 1+
[2020-05-30 08:47] LABS: Appearance Urine UA SL CLOUDY; pH Urine UA 5.5 (4.5-8.0)
[2020-05-30 08:49] LABS: Bacteria Urine Many (>30); Culture Indicated Urine Specimen Cultured; RBC Urine 0-1/HPF (0-5/HPF); Squamous Epithelial Cell Urine 0-1 /HPF (0-5/HPF); WBC Urine 10-30/HPF (0-5/HPF)
--- NOTE | 2020-05-30 08:56 | PC.NURSE ---
Cleaned patient's head and neck from dried blood.
--- NOTE | 2020-05-30 09:01 | PC.NURSE ---
ronalers x 2 drawn by wade townsend
[2020-05-30 09:06] LABS: Procalcitonin < 0.05 ng/mL (<0.5)
[2020-05-30] MEDS: PIPERACILLIN-TAZO 2.25 GM/50 ML FROZ.PIGGY IV ×2 (09:18→17:17)
[2020-05-30 10:01] LABS: COVID19 -Nasal RAPID Negative (Negative)
[2020-05-30 10:24] LABS: Reflexed Lactate in 2 Hours Y
--- NOTE | 2020-05-30 11:09 | PM.HP.1 ---
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 Staff at the facility heard a loud thud, then came into her room to find her face down near her bed with a bleeding nose. Patient does not recall falling and did not know why she was in the hospital. She has a history of dementia. She currently denies any shortness of breath, chest pain, headache, dizziness, palpitations, abdominal pain, dysuria, fever, chills. According to the ER provider had a discussion with the nurse practitioner at her assisted living facility, yesterday her blood pressure was low (80s systolic) and some of her blood pressure medications were withheld. In the emergency room, her blood pressure was 102/76, no tachycardia. She was saturating at 94% on 2 L, consistent with her prior oxygen use. Initial lab findings revealed a leukocytosis of 30.8, hemoglobin of 7.4, and platelet count of 273. Chemistries revealed a creatinine of 1.97 up slightly from her prior admission where her baseline appear to be around 1.7. Glucose was 206, potassium 5.3, lactate was 4. Urinalysis was grossly positive with 10-30 white blood cells, many bacteria, nitrites and leuk esterase positive. Specimen was sent for culture. COVID-19 testing was negative. Upon arrival to the emergency room, patient was noted to be quite lethargic per ER provider report, but improved with fluid administration, although on my examination she is still somewhat confused compared to her prior admission. Repeat lactate is currently pending. She was admitted under inpatient status for sepsis secondary to acute cystitis. Patient History Medical History (Updated 05/30/20 @ 09:40 by Libertad Mehta MD) CHF (congestive heart failure) (Acute) CKD (chronic kidney disease) (Acute) CVA (cerebral vascular accident) (Acute) Dementia (Acute) Eye globe prosthesis (Acute) Pulmonary fibrosis (Acute) Right ventricular dysfunction (Acute) Type 2 diabetes mellitus (Acute) Family & Social History Social History: household members none Safety & Behavioral: Feels Safe in Current Yes Environment Been Physically Hurt or No Threatened By a Person Tobacco & Substance use: Smoking Status Never smoker alcohol intake former Substance Use Type does not use Meds Home Medications and Allergies Home Medications Medication Instructions Recorded Confirmed Type albuterol sulfate 2 inh INHALATION Q6H PRN 05/05/20 05/05/20 History albuterol sulfate 2.5 mg INHALATION BID 05/05/20 05/05/20 History allopurinol 100 mg PO QAM 05/05/20 05/30/20 History amlodipine 10 mg PO QAM 05/05/20 05/30/20 History artifi.tears(hypromellose)(PF) 2 drp OPHTHALMIC (EYE) TID 05/05/20 05/30/20 History aspirin-dipyridamole [Aggrenox] 1 cap PO BID 05/05/20 05/30/20 History atorvastatin 20 mg PO BEDTIME 05/05/20 05/30/20 History carvedilol 12.5 mg PO BID 05/05/20 05/30/20 History escitalopram oxalate 20 mg PO DAILY 05/05/20 05/30/20 History hydroxyzine HCl 50 mg PO Q6HR PRN 05/05/20 05/30/20 History nutritional supplements 1 ea PO QPM 05/05/20 05/30/20 History psyllium 0.5 tsp PO DAILY 05/05/20 05/30/20 History quetiapine 25 mg PO QPM 05/05/20 05/30/20 History rivastigmine tartrate 3 mg PO BID 05/05/20 05/30/20 History furosemide 40 mg PO DAILY #30 tab 05/07/20 05/30/20 Rx ferrous sulfate 325 mg PO DAILY 05/30/20 05/30/20 History hydralazine 50 mg PO TID 05/30/20 05/30/20 History loperamide [Imodium A-D] 2 mg PO Q6H PRN 05/30/20 05/30/20 History melatonin 5 mg PO BEDTIME PRN 05/30/20 05/30/20 History omeprazole 40 mg PO DAILY 05/30/20 05/30/20 History Allergies Allergy/AdvReac Type Severity Reaction Status Date / Time gabapentin Allergy Verified 05/05/20 11:13 hydrocodone Allergy Verified 05/05/20 11:13 tomato Allergy Verified 05/05/20 11:13 Review of Systems Review of Systems Narrative: All other systems reviewed with the patient and are negative unless otherwise stated. Exam Vital Signs (past 8 hours): - 05/30/20 07:25 05/30/20 07:36 05/30/20 07:37 Temperature 97.5 F L Pulse Rate 91 H 73 71 Respiratory Rate 20 14 20 Blood Pressure 102/76 103/54 L Pulse Oximetry 90 L 96 97 05/30/20 07:53 05/30/20 07:55 05/30/20 07:56 Temperature Pulse Rate 68 66 84 Respiratory Rate 7 L 14 Blood Pressure 103/54 L Pulse Oximetry 97 99 98 05/30/20 08:00 05/30/20 08:05 05/30/20 08:10 Temperature Pulse Rate 64 71 78 Respiratory Rate 12 14 41 H Blood Pressure Pulse Oximetry 96 92 83 L 05/30/20 08:15 05/30/20 08:20 05/30/20 08:25 Temperature Pulse Rate 72 79 72 Respiratory Rate 20 24 18 Blood Pressure Pulse Oximetry 89 L 84 L 95 05/30/20 08:30 05/30/20 08:44 05/30/20 08:45 Temperature Pulse Rate 68 67 65 Respiratory Rate 25 H 16 22 Blood Pressure 109/55 L 121/56 L Pulse Oximetry 97 05/30/20 09:00 05/30/20 09:30 05/30/20 10:33 Temperature Pulse Rate 69 67 67 Respiratory Rate 20 18 18 Blood Pressure 121/56 L Pulse Oximetry 95 96 97 05/30/20 11:05 Temperature 98.7 F Pulse Rate 77 Respiratory Rate 22 Blood Pressure 129/55 L Pulse Oximetry 94 Oxygen Delivery Method Nasal Cannula Oxygen Flow Rate 2 Narrative Exam Narrative: GENERAL APPEARANCE: Well developed, well nourished, in no acute distress. SKIN: Inspection of the skin reveals no rashes, ulcerations or petechiae. HEENT: Large ecchymotic area above her left eye, with slightly closed eyelid on the left but able to open on prompting. Oral mucosa is dry. NECK: Supple and symmetric. There was no thyroid enlargement, and no tenderness, or masses were felt. CHEST: Normal AP diameter and normal contour without any kyphoscoliosis. LUNGS: Auscultation of the lungs revealed bibasilar rhonchi, but no wheezes or rales. CARDIOVASCULAR: There was a regular rate and rhythm with a 2/6 systolic murmur without rubs or gallops. Peripheral pulses were 2+ and symmetric. ABDOMEN: Soft and nontender with normal bowel sounds. No ascites was noted. MUSCULOSKELETAL: There was no tenderness or effusions noted. Muscle strength and tone were normal. EXTREMITIES: No cyanosis, clubbing or edema. NEUROLOGIC: Alert and oriented x 2 (date stated was 2019). Evident cognitive impairment. Normal affect. Strength is grossly +5/5 in the Upper Extremities and Lower Extremities Bilaterally. Objective Labs Result Diagrams: 05/30/20 07:15 05/30/20 07:15 Labs: Laboratory Results - last 24 hr 05/30/20 05/30/20 05/30/20 07:15 07:15 07:15 WBC 30.8 H* RBC 2.54 L Hgb 7.4 L Hct 24.3 L MCV 95.8 MCH 29.2 MCHC 30.5 RDW 15.2 H Plt Count 273 Neut % (Auto) Not Reportable Lymph % (Auto) Not Reportable [place] % (Auto) Not Reportable Eos % (Auto) Not Reportable Baso % (Auto) Not Reportable Lymph # (Auto) Not Reportable [place] # (Auto) Not Reportable Baso # (Auto) Not Reportable Total Counted 100 Seg Neutrophils % 27.0 L Band Neutrophils % 7.0 Lymphocytes % (Manual) 53.0 H Atypical Lymphs % 9.0 H Monocytes % (Manual) 2.0 Eosinophils % (Manual) 2.0 Neutrophils # (Manual) 84782 H Smudge Cells 1+ H RBC Morphology See below Anisocytosis 2+ H Sodium 138 Potassium 5.3 H Chloride 102 Carbon Dioxide 24 BUN 81 H Creatinine 1.97 H Estimated GFR 24.3 L BUN/Creatinine Ratio 41.1 H Glucose 206 H Lactate Calcium 8.4 Total Bilirubin 0.5 AST 21 ALT 12 Alkaline Phosphatase 59 Total Protein 6.0 L Albumin 3.4 L Globulin 2.6 Albumin/Globulin Ratio 1.3 Procalcitonin Urine Color Urine Appearance Urine pH Ur Specific [place] Urine Protein Urine Glucose (UA) Urine Ketones Urine Occult Blood Urine Nitrate Urine Bilirubin Urine Urobilinogen Ur Leukocyte Esterase Urine RBC Urine WBC Ur Squamous Epith Cells Urine Bacteria Ur Culture Indicated? COVID-19 PCR Blood Type O Negative Antibody Screen Negative 05/30/20 05/30/20 05/30/20 07:15 07:15 08:20 WBC RBC Hgb Hct MCV MCH MCHC RDW Plt Count Neut % (Auto) Lymph % (Auto) [place] % (Auto) Eos % (Auto) Baso % (Auto) Lymph # (Auto) [place] # (Auto) Baso # (Auto) Total Counted Seg Neutrophils % Band Neutrophils % Lymphocytes % (Manual) Atypical Lymphs % Monocytes % (Manual) Eosinophils % (Manual) Neutrophils # (Manual) Smudge Cells RBC Morphology Anisocytosis Sodium Potassium Chloride Carbon Dioxide BUN Creatinine Estimated GFR BUN/Creatinine Ratio Glucose Lactate 4.1 H* Calcium Total Bilirubin AST ALT Alkaline Phosphatase Total Protein Albumin Globulin Albumin/Globulin Ratio Procalcitonin < 0.05 Urine Color Yellow Urine Appearance Sl cloudy Urine pH 5.5 Ur Specific [place] 1.020 Urine Protein Negative Urine Glucose (UA) Negative Urine Ketones Negative Urine Occult Blood Negative Urine Nitrate Positive H Urine Bilirubin Negative Urine Urobilinogen 0.2 Ur Leukocyte Esterase 2+ H Urine RBC 0-1/hpf Urine WBC 10-30/hpf H Ur Squamous Epith Cells 0-1 /hpf Urine Bacteria Many (>30) H Ur Culture Indicated? Specimen cultured COVID-19 PCR Blood Type Antibody Screen 05/30/20 08:45 WBC RBC Hgb Hct MCV MCH MCHC RDW Plt Count Neut % (Auto) Lymph % (Auto) [place] % (Auto) Eos % (Auto) Baso % (Auto) Lymph # (Auto) [place] # (Auto) Baso # (Auto) Total Counted Seg Neutrophils % Band Neutrophils % Lymphocytes % (Manual) Atypical Lymphs % Monocytes % (Manual) Eosinophils % (Manual) Neutrophils # (Manual) Smudge Cells RBC Morphology Anisocytosis Sodium Potassium Chloride Carbon Dioxide BUN Creatinine Estimated GFR BUN/Creatinine Ratio Glucose Lactate Calcium Total Bilirubin AST ALT Alkaline Phosphatase Total Protein Albumin Globulin Albumin/Globulin Ratio Procalcitonin Urine Color Urine Appearance Urine pH Ur Specific [place] Urine Protein Urine Glucose (UA) Urine Ketones Urine Occult Blood Urine Nitrate Urine Bilirubin Urine Urobilinogen Ur Leukocyte Esterase Urine RBC Urine WBC Ur Squamous Epith Cells Urine Bacteria Ur Culture Indicated? 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 She is admitted with sepsis secondary to likely acute cystitis. 1. Sepsis, acute, present on admission -sofa score of 3, patient presented with mild worsening of her creatinine, confusion, and had reported low blood pressure at her living facility yesterday. -UA is grossly positive with leuk esterase and nitrates, cultures have been sent. -patient was given a dose of Zosyn and vancomycin empirically in the emergency room, will continue ceftriaxone based on acute cystitis likely source and based on prior urine cultures. -PT/OT consults 2. Acute cystitis, present on admission, recurrent -patient was given a dose of Zosyn and vancomycin for presumed sepsis in the ER.continue ceftriaxone based on prior cultures -follow-up repeat urine cultures and blood cultures ordered in the emergency room 3. Toxic metabolic encephalopathy, present on admission - likely in setting of sepsis. Continue management as noted above 4. Chronic kidney disease, stage III -prior admission creatinine appeared around 1.7. Slightly worsened today with a creatinine of 1.97 likely in the setting of sepsis but does not meet the criteria for HECTOR. -continue to monitor creatinine, avoid nephrotoxic medications, and renally dose medications as necessary 5. Pulmonary fibrosis with chronic hypoxemic respiratory failure, present on admission, chronic -does not represent a current exacerbation -patient is chronically on 2-3 L home oxygen, will consult respiratory therapy, continue to titrate oxygen to maintain O2 saturations between 88 and 96%. 6. Chronic heart failure with preserved ejection fraction -echocardiogram performed previous admission revealed heart failure with preserved ejection fraction -patient does not have any evidence of volume overload on exam, and further does not report any recent shortness of breath. 7. Type 2 diabetes, chronic -glucose of 206 on admission, not currently on any medications. -continue fingersticks a.c. HS 8. History of prior CVA -continue home Lipitor 9. Hypertension, chronic -continue home amlodipine, carvedilol, and hydralazine 10. Hyperlipidemia, chronic -continue home Lipitor 11. Dementia, chronic -continue home Seroquel and rivastigmine 12. Depression and anxiety, chronic -continue hydroxyzine 50 mg twice daily as needed for anxiety Code: DNR as discussed with the patient, surrogate decision maker is the patient's DVT: HSQ BID COVID19: negative. COVID-19 COVID-19 status: Negative Scores SOFA PaO2/FIO2: >=400 mmHg Platelets: >= 150 Bilirubin: < 1.2 mg/dL Hypotension: MAP < 70 mmHg Jose Carlos Coma Scale: 13-14 Renal: Creatinine 1.2-1.9 mg/dL SOFA Score: 3
[2020-05-30 11:31] LABS: Lactate 2HR (Lactic Acid Rflx) 1.2 mmol/L (0.7-2.1)
[2020-05-30] MEDS: VANCOMYCIN 1,000 MG/200 ML PIGGYBACK 200 MG IV (11:57)
[2020-05-30] MEDS: SODIUM CHLORIDE 0.9% FLUSH 10 ML IV ×2 (11:57→20:39)
--- NOTE | 2020-05-30 12:19 | DI.CT.S_ITS ---
PROCEDURE: CT HEAD/BRAIN WO CON INDICATIONS: new possible seizure, recent fall, repeat for ? bleeding TECHNIQUE: Noncontrast 4.5 mm thick angled axial sections acquired from the foramen magnum to the vertex, with coronal and sagittal reformats. For radiation dose reduction, the following was used: automated exposure control, adjustment of mA and/or kV according to patient size. COMPARISON: Located Within [facility], CR, XR CHEST 1V, 05/30/2020, 8:55. Located Within [facility], CT, CT CERVICAL SPINE WO CON, 05/30/2020, 7:37. Located Within [facility], CT, CT HEAD/BRAIN WO CON, 05/30/2020, 7:37. FINDINGS: Image quality: Excellent. CSF spaces: Basal cisterns are patent. No extra-axial fluid collections. The ventricles are symmetric in size and shape. Brain: Stable low-density can be seen involving the right occipital lobe inferiorly and the posterior right temporal lobe. No intracranial bleeds or masses. There is cerebral volume loss for age, with resultant ventricular and sulcal prominence. There are periventricular and deep white matter chronic small vessel ischemic changes. There is intracranial internal carotid artery atherosclerosis. Skull and face: Calvarium and visualized facial bones appear intact, without suspicious lesions. 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 Sinuses: Visualized sinuses and mastoids are clear. IMPRESSION: No interval abnormality is seen. No acute intracranial hemorrhage is seen. Stable right posterior cerebral hemisphere infarction. Left ocular prosthesis. Dictated by: Donato Raphael M.D. on 05/30/2020 at 12:01 Approved by: Donato Raphael M.D. on 05/30/2020 at 12:03
--- NOTE | 2020-05-30 12:24 | P.EN_ITS ---
Event Note Date Patient Seen: 05/30/20 Time Patient Seen: 12:24 Event Note: Rapid response call was initiated for a change in her mentation. When arrived at bedside patient was not following commands, moaning, with eyes opening spontaneously. She has a left eye prosthesis, right eye is 4-5 mm and currently not reactive to light. She currently has labile blood pressures but predominantly low. She is also diaphoretic on exam. Confirmed prior DNR status with patient's son. Her cough sounded very coarse. Differential includes seizure, worsening head bleed given recent fall that may have not been present on admission, or severe encephalopathy due to sepsis, CVA. Will broaden antibio tics to zosyn pending cultures, she was given a dose already in the ER. Will repeat head CT and complete 1 L bolus.
[2020-05-30 13:12] LABS: Fractionated Inspired Oxygen 32; HCO3 ABG 22 mmol/L (22-26); Oxygen Saturation ABG 90 % (95-100); PCO2 ABG 43.3 mmHg (35-45); PO2 ABG 64 mmHg (80-100); TCO2 ABG 24 mmol/L (21-31); pH ABG 7.32 (7.35-7.45)
[2020-05-30] MEDS: SODIUM CHLORIDE 0.9% 1,000 ML 75 ML IV (13:48)
--- NOTE | 2020-05-30 14:33 | PC.NURSE ---
Addendum entered by Alexa Salguero R.N. 05/30/20 15:45: Summary: Arrived to room 214 at 1055. Patient was awake at that time, following commands and was transferred to bed via slider board. Patient kept asking for water, and was able to drink about 250 ml immediately. Blood sugar check at noon was 171. Tele monitoring was initiated. At 1208 this production underwriter and zinc furnace charger were both in room working with this patient and she became unresponsive. Patient was gurgling/grunting, tremulous and no longer following any commands and had what looked like nystagmus in bilateral eyes. BP check at that time was 69/36. Oral suctioning to help protect airway. Rapid response called with Dr Onofre to room approx 1210-ordered fluid bolus and repeat head CT. See vitals as charted, BP was 100/42 just prior to going off floor to CT. Patient back to room [address], then transferred to ICU for closer monitoring at 1320. Original Note: Arrived to room 214 at 1055, transferred to ICU at 1320 after rapid response. Will amend note momentarily.
--- NOTE | 2020-05-30 14:36 | PT-IP ANOTE ---
Received PT orders and reviewed chart. Rapid response was called on this pt earlier this morning before transfer to ICU with suspicion of sepsis. Per nursing and hospitalist, pt is not appropriate for PT at this time. Will follow up 05/31/20 to check on pt condition.
[2020-05-30] MEDS: POLYVINYL ALCOHOL DROPS 2 DROPS EYE-BOTH ×2 (14:49→21:21)
--- NOTE | 2020-05-30 15:21 | PC.NURSE ---
pt transferred to icu this am due to increased activity, thrashing about and flailing limbs- she is not following commands and has nystagmus of right eye ( left eye prostesis) lungs coarse with coarse sounding cough- requiring oral suctioning intermittently due to increase in oral secretions - no noted gag upon suctioning-
[2020-05-30] MEDS: LORazepam 2 MG/ML INJ 1 MG IV ×2 (18:30→22:36)
[2020-05-30] MEDS: MORPHINE 2 MG/ML INJ IV ×3 (18:30→22:35)
[2020-05-30 19:04] LABS: BUN Creatinine Ratio 46.8 (6-22); Blood Urea Nitrogen 101 mg/dL (7-17); Calcium 7.4 mg/dL (8.4-10.2); Carbon Dioxide 17 mmol/L (22-32); Chloride 107 mmol/L (98-107); Estimated Glomerular Filt Rate 21.9 mL/min (>60); Glucose 216 mg/dL (80-110); HEMOLYSIS < 15 (0-50); Magnesium 1.9 mg/dL (1.6-2.3); Sodium 137 mmol/L (137-145)
[2020-05-30 19:05] LABS: Mean Corpuscular HGB Conc 30.4 % (30-36); Mean Corpuscular Hemoglobin 29.5 PG (26-34); Platelet Count 234 X10^3/uL (150-400); Red Blood Cell Count 1.78 X10^6/uL (4.0-5.2); Red Cell Distribution Width 15.4 % (11.6-14.8); White Blood Cell Count 27.5 X10^3/uL (4.5-11.0)
[2020-05-30 19:07] LABS: Add Manual Diff / Slide Review YES; Hematocrit 17.3 % (36-46); Hemoglobin 5.3 g/dL (12.0-16.0)
[2020-05-30] MEDS: ALBUTEROL 2.5 MG/3 ML NEB (ADULT) INH (19:13)
[2020-05-30 19:28] LABS: Potassium 6.4 mmol/L (3.4-5.1)
--- NOTE | 2020-05-30 19:40 | PC.NURSE ---
Critical values Hgb 5.3, contacted Dr. Onofre and recieved order for protonix BID 40mg and 3units PRBCs. Called for consent from , Bob who also informed us that the patient had been in poor mental health prior to admission and had previously mentioned suicide. Critical value of K 6.4. called Dr. Dawkins- recieved order for Kayexalate 30mg GA once and to repeat K in 4 hrs and Hgb after 3rd unit PRBC. Patient has been desatting and O2 increased to 6L. Patient has no changes in LOC and still remains minimally responsive and nonverbal.
[2020-05-30] MEDS: SODIUM POLYSTYRENE SULFON/SORB 15 GM/60 ML CUP 30 GM PR (19:59)
[2020-05-30] MEDS: PANTOPRAZOLE 40 MG VIAL IV (20:39)
[2020-05-30 21:12] LABS: Neutrophils Absolute Manual 11000 /uL (3000-5900); Total Cells Counted 100
[2020-05-30 21:13] LABS: Smudge Cells 2+
[2020-05-30 21:14] LABS: Anisocytosis 2+; Hypochromasia 2+
--- NOTE | 2020-05-30 23:27 | PC.NURSE ---
Patient condition unchanged. 2nd unit of PRBCs is running. Lab to recheck K at 1230. Lasix order received for after 2nd unit of blood. Recheck H/H after 3rd unit.
[2020-05-31] VITALS (44 sets, daily range): BP systolic 109–138; BP diastolic 52–62; PULSE 91–112; RESP 14–25; TEMP 36.8–37.3; O2SAT 82–100
[2020-05-31] MEDS: PIPERACILLIN-TAZO 2.25 GM/50 ML FROZ.PIGGY IV ×3 (00:44→17:27)
[2020-05-31 00:49] LABS: HEMOLYSIS < 15 (0-50)
[2020-05-31 00:56] LABS: Potassium 6.6 mmol/L (3.4-5.1)
--- NOTE | 2020-05-31 01:00 | PC.NURSE ---
Lab called with critical value K+ 6.6. ICU nurse Nikole notified of results.
[2020-05-31] MEDS: FUROSEMIDE 20 MG/2 ML VIAL IV (01:45)
[2020-05-31] MEDS: MORPHINE 2 MG/ML INJ IV ×3 (02:12→22:28)
[2020-05-31] MEDS: CALCIUM GLUCONATE 9.3 MEQ in SODIUM CHLORIDE 0.9% 50 ML 140 ML IV (04:37)
[2020-05-31] MEDS: DEXTROSE 50 % IN WATER 25 GM/50 ML SYRINGE IV (04:37)
[2020-05-31] MEDS: INSULIN REGULAR 100 UNIT/ML 3 ML VIAL 10 UNIT IV (04:37)
[2020-05-31 06:06] LABS: Hemoglobin 9.2 g/dL (12.0-16.0); Mean Corpuscular HGB Conc 31.8 % (30-36); Mean Corpuscular Hemoglobin 29.3 PG (26-34); Platelet Count 189 X10^3/uL (150-400); Red Blood Cell Count 3.15 X10^6/uL (4.0-5.2); Red Cell Distribution Width 15.2 % (11.6-14.8)
[2020-05-31 06:11] LABS: Alanine Aminotransferase 47 IU/L (<35); Albumin 2.7 g/dL (3.5-5.0); Albumin Globulin Ratio 1.1 (1.0-2.8); Alkaline Phosphatase 39 U/L (38-126); Aspartate Aminotransferase 99 IU/L (14-36); BUN Creatinine Ratio 45.3 (6-22); Bilirubin Total 0.6 mg/dL (0.2-1.3); Bilirubin Unconjugated 0.5 mg/dL (0.0-1.1); Calcium 7.8 mg/dL (8.4-10.2); Carbon Dioxide 18 mmol/L (22-32); Chloride 107 mmol/L (98-107); Estimated Glomerular Filt Rate 18.1 mL/min (>60); Globulin 2.4 g/dL (1.7-4.1); Glucose 233 mg/dL (80-110); HEMOLYSIS 16 (0-50); Potassium 4.8 mmol/L (3.4-5.1); Sodium 139 mmol/L (137-145); Total Protein 5.1 g/dL (6.3-8.2)
[2020-05-31] MEDS: SODIUM POLYSTYRENE SULFON/SORB 15 GM/60 ML CUP 30 GM PR (06:12)
--- NOTE | 2020-05-31 06:21 | PC.NURSE ---
Lab called with report of critical labs: BUN , WBC 41.8. Nikole CHÁVEZ notified of results.
[2020-05-31 06:22] LABS: Blood Urea Nitrogen 115 mg/dL (7-17)
[2020-05-31 06:23] LABS: White Blood Cell Count 41.8 X10^3/uL (4.5-11.0)
[2020-05-31] MEDS: LORazepam 2 MG/ML INJ 1 MG IV ×3 (06:28→20:48)
[2020-05-31 06:52] LABS: Add Manual Diff / Slide Review YES
[2020-05-31 06:59] LABS: Neutrophils Absolute Manual 21736 /uL (3000-5900); TSH w/ Reflex to FT4 1.57 uIU/mL (0.47-4.68); Total Cells Counted 100
[2020-05-31 07:00] LABS: Anisocytosis 1+
--- NOTE | 2020-05-31 07:50 | PC.NURSE ---
Bail Bonding Agent Note-Patient was obtunded and unresponsive most of the night, medicated with IV morphine at 0200 for FLACC 5 and IV Ativan for severe agitation at 0600. Tolerated 3 units PRBCs infusing overnight, 20mg IV Lasix given after 2nd unit. SR/ST, BP stable, RR 19-30 irregular, required Venturi mask at 50% to keep SpO2 >92 until 0500, then able to change to 5L HFNC. Attempt to notify Dr Dawkins at 0200 to report repeat critical K+ 6.6, no answer, message left. He called back at 0400, updated him on patients status and critical K+, orders received to give 10 units regular insulin, D50 IV, 2gm Ca+ gluconate, and Kayexalate AR, see Emar. Patient did have large tarry gu+ stool at midnight, MD aware.
--- NOTE | 2020-05-31 09:28 | CM.DANOTE ---
DCP/Brief Assessment: Reviewed chart. Patient is a 79yr old admitted to [facility] after fall at [facility]. No PCP listed. Primary payor is 1)Medicare 2)Medicaid. Contact is son/Bob Lagunas # [phone]. Spoke with provider/Dr. Onofre. He reports patient very ill. Patient requiring 3 units of blood yesterday and currently unable to assess due to illness. Dr. Onofre reports he has spoken with son/Bob and confirms DNR/DNI code status. CM team to follow closely for planning. P: Pending. KELLY García Discharge Planning/Care Management Discharge Assessment Start: 05/31/20 09:24 Freq: Status: Active Protocol: Document 05/31/20 09:24 KJS (Rec: 05/31/20 09:28 KJS [id number]) Discharge Planning Assessment Assigned Narcotics Detective KELLY García Contact Information Bob Lagunas (naz) # Advance Directives? Yes Advance Directives on File No History Provided By Medical Record Prior Living Arrangements Assisted Living Household Members none Type of transporation used prior to Relies on Others admit Facility Name Admitted From: [facility] with ADL's No Is patient alert and oriented? No Caregiver for Another No Comment Return to [facility] if appropriate. Comment Patient currently very ill. Per provider/Dr. Onofre it is unclear if patient will recover. Patitent currently DNR/DNI. Discharge Plan Assisted Living Facility Transportation Arrangement Facility Additional Comment May need hospice pending recovery. Review Status In Process Next Review Type Continued Stay Review Discharge Planning/Care Management Discharge Assessment Start: 05/31/20 09:24 Freq: Status: Active Protocol: Document 05/31/20 09:24 KJS (Rec: 05/31/20 09:28 KJS [id number]) Discharge Planning Assessment Assigned Narcotics Detective KELLY García Contact Information Bob Lagunas (naz) # Advance Directives? Yes Advance Directives on File No History Provided By Medical Record Prior Living Arrangements Assisted Living Household Members none Type of transporation used prior to Relies on Others admit Facility Name Admitted From: [facility] with ADL's No Is patient alert and oriented? No Caregiver for Another No Comment Return to [facility] if appropriate. Comment Patient currently very ill. Per provider/Dr. Onofre it is unclear if patient will recover. Patitent currently DNR/DNI. Discharge Plan Assisted Living Facility Transportation Arrangement Facility Additional Comment May need hospice pending recovery. Review Status In Process Next Review Type Continued Stay Review
--- NOTE | 2020-05-31 09:38 | OT.IPNOTE ---
Discussed case with Orlin who has spoken with nursing. Pt is not appropriate for therapy at this time. Will discharge order and await new order when pt is able to participate.
--- NOTE | 2020-05-31 09:45 | SLP.IPNOTE ---
Received ST orders and reviewed chart. Discussed case with OT and nursing. Both reported pt is not appropriate for therapy at this time. Plan to discharge ST orders and await new orders for when pt is able to fully participate. Deidra Howard MS, CF-TRACK LAMINATING MACHINE TENDER
[2020-05-31] MEDS: ALBUTEROL 2.5 MG/3 ML NEB (ADULT) INH ×2 (10:04→20:12)
--- NOTE | 2020-05-31 10:16 | PT-IP ANOTE ---
Discussed case with CARE REP and concluded PT orders will be discharged at this time as pt is unable to participate. PT will remain available for consult as pt condition changes.
[2020-05-31] MEDS: SODIUM CHLORIDE 0.9% FLUSH 10 ML IV ×2 (10:18→21:03)
[2020-05-31] MEDS: POLYVINYL ALCOHOL DROPS 2 DROPS EYE-BOTH ×3 (10:18→21:54)
[2020-05-31] MEDS: PANTOPRAZOLE 40 MG VIAL IV ×2 (10:23→20:57)
--- NOTE | 2020-05-31 10:23 | PM.PN.1 ---
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 She had 2-head CTs and was alert and oriented yesterday but please see event note from yesterday regarding her change in mental status. She remains comatose this morning. Overnight she had a drop in her hemoglobin to 5.3 from 7.4 and had a dark tarry stool this morning. She was given 3 units of packed red blood cells with appropriate response to 9.2. She was also started on IV Protonix 40 mg twice daily. Her white count also jump to 41.8 today. Her platelet count is unremarkable at 189. She was also hyperkalemic overnight in given Kayexalate, and her potassium is 4.8 this morning. Her creatinine has jumped slightly to 2.54. Exam Vital Signs (past 8 hours): - 05/31/20 02:39 05/31/20 03:00 05/31/20 05:00 Temperature 98.5 F 99.2 F Pulse Rate 101 H 101 H 99 H Respiratory Rate 19 18 17 Blood Pressure 120/56 L 123/60 121/57 L Pulse Oximetry 97 96 05/31/20 05:10 05/31/20 08:00 05/31/20 09:23 Temperature 99.2 F 98.8 F Pulse Rate 96 H 100 H 108 H Respiratory Rate 19 15 22 Blood Pressure 121/57 L 110/52 L Pulse Oximetry 96 92 05/31/20 10:09 Temperature Pulse Rate Respiratory Rate Blood Pressure Pulse Oximetry 97 Fraction of Inspired Oxygen 50 Oxygen Delivery Method High Flow Nasal Cannula Oxygen Flow Rate 5 Narrative Exam Narrative: GENERAL APPEARANCE: Pale, chronically ill-appearing female in no acute distress SKIN: Inspection of the skin reveals no rashes, ulcerations or petechiae. HEENT: Left eye prosthesis, improved horizontal nystagmus, right pupil approximately 3-4 mm and not reactive NECK: Supple and symmetric. There was no thyroid enlargement, and no tenderness, or masses were felt. CHEST: Normal AP diameter and normal contour without any kyphoscoliosis. LUNGS: Auscultation of the lungs revealed no wheezes, rhonchi, or rales. CARDIOVASCULAR: Mildly tachycardic rate with regular rhythm, 2/6 systolic murmur. No rubs or gallops. ABDOMEN: Soft and nontender with normal bowel sounds. No ascites was noted. MUSCULOSKELETAL: There was no tenderness or effusions noted. Muscle strength and tone were normal. EXTREMITIES: No cyanosis, clubbing. Trace edema bilateral lower extremities NEUROLOGIC: No verbal response, eyes closed, pupil exam is noted above. Intermittent movement of her extremities, withdrawals from pain, difficult to tell but she seemingly moves right-sided somewhat better than her left. Objective Labs Result Diagrams: 05/31/20 05:45 05/31/20 05:45 Labs: Laboratory Results - last 24 hr 05/30/20 05/30/20 05/30/20 07:15 11:14 13:02 WBC RBC Hgb Hct MCV MCH MCHC RDW Plt Count Neut % (Auto) Lymph % (Auto) [place] % (Auto) Eos % (Auto) Baso % (Auto) Neut # (Auto) Lymph # (Auto) [place] # (Auto) Eos # (Auto) Baso # (Auto) Total Counted Seg Neutrophils % Band Neutrophils % Lymphocytes % (Manual) Atypical Lymphs % Monocytes % (Manual) Basophils % (Manual) Myelocytes % Blast Cells % Neutrophils # (Manual) Smudge Cells RBC Morphology Hypochromasia Anisocytosis ABG pH 7.32 L ABG pCO2 43.3 ABG pO2 64 L ABG HCO3 22 ABG Total CO2 24 ABG O2 Saturation 90 L ABG Base Excess -4.0 L FiO2 32 Sodium Potassium Chloride Carbon Dioxide BUN Creatinine Estimated GFR BUN/Creatinine Ratio Glucose Lactate 1.2 Calcium Magnesium Total Bilirubin Conjugated Bilirubin Unconjugated Bilirubin AST ALT Alkaline Phosphatase Total Protein Albumin Globulin Albumin/Globulin Ratio TSH Nasal Screen MRSA (PCR) Blood Type O Negative Antibody Screen Negative Crossmatch See Detail 05/30/20 05/30/20 05/30/20 14:00 18:41 18:41 WBC 27.5 H RBC 1.78 L Hgb 5.3 L* Hct 17.3 L* MCV 97.0 MCH 29.5 MCHC 30.4 RDW 15.4 H Plt Count 234 Neut % (Auto) Not Reportable Lymph % (Auto) Not Reportable [place] % (Auto) Not Reportable Eos % (Auto) Not Reportable Baso % (Auto) Not Reportable Neut # (Auto) Lymph # (Auto) Not Reportable [place] # (Auto) Not Reportable Eos # (Auto) Baso # (Auto) Not Reportable Total Counted 100 Seg Neutrophils % 40.0 Band Neutrophils % Lymphocytes % (Manual) 56.0 H Atypical Lymphs % 2.0 H Monocytes % (Manual) Basophils % (Manual) Myelocytes % 1.0 H Blast Cells % 1.0 H Neutrophils # (Manual) 32963 H Smudge Cells 2+ H RBC Morphology See below Hypochromasia 2+ H Anisocytosis 2+ H ABG pH ABG pCO2 ABG pO2 ABG HCO3 ABG Total CO2 ABG O2 Saturation ABG Base Excess FiO2 Sodium 137 Potassium 6.4 H* Chloride 107 Carbon Dioxide 17 L BUN 101 H Creatinine 2.16 H Estimated GFR 21.9 L BUN/Creatinine Ratio 46.8 H Glucose 216 H Lactate Calcium 7.4 L Magnesium 1.9 Total Bilirubin Conjugated Bilirubin Unconjugated Bilirubin AST ALT Alkaline Phosphatase Total Protein Albumin Globulin Albumin/Globulin Ratio TSH Nasal Screen MRSA (PCR) Negative for mrsa Blood Type Antibody Screen Crossmatch 05/31/20 05/31/20 05/31/20 00:35 05:45 05:45 WBC 41.8 H* D RBC 3.15 L Hgb 9.2 L Hct 29.0 L MCV 92.0 D MCH 29.3 MCHC 31.8 RDW 15.2 H Plt Count 189 Neut % (Auto) Pharmaceutical Engineer Lymph % (Auto) Pharmaceutical Engineer [place] % (Auto) Pharmaceutical Engineer Eos % (Auto) Pharmaceutical Engineer Baso % (Auto) Pharmaceutical Engineer Neut # (Auto) Pharmaceutical Engineer Lymph # (Auto) Pharmaceutical Engineer [place] # (Auto) Pharmaceutical Engineer Eos # (Auto) Pharmaceutical Engineer Baso # (Auto) Pharmaceutical Engineer Total Counted 100 Seg Neutrophils % 50.0 Band Neutrophils % 2.0 L Lymphocytes % (Manual) 46.0 H Atypical Lymphs % Monocytes % (Manual) 1.0 L Basophils % (Manual) 1.0 Myelocytes % Blast Cells % Neutrophils # (Manual) 84616 H Smudge Cells RBC Morphology See below Hypochromasia Anisocytosis 1+ H ABG pH ABG pCO2 ABG pO2 ABG HCO3 ABG Total CO2 ABG O2 Saturation ABG Base Excess FiO2 Sodium 139 Potassium 6.6 H* 4.8 D Chloride 107 Carbon Dioxide 18 L BUN 115 H* Creatinine 2.54 H Estimated GFR 18.1 L BUN/Creatinine Ratio 45.3 H Glucose 233 H Lactate Calcium 7.8 L Magnesium 2.0 Total Bilirubin 0.6 Conjugated Bilirubin 0.0 Unconjugated Bilirubin 0.5 AST 99 H ALT 47 H Alkaline Phosphatase 39 Total Protein 5.1 L Albumin 2.7 L Globulin 2.4 Albumin/Globulin Ratio 1.1 TSH Nasal Screen MRSA (PCR) Blood Type Antibody Screen Crossmatch 05/31/20 05:45 WBC RBC Hgb Hct MCV MCH MCHC RDW Plt Count Neut % (Auto) Lymph % (Auto) [place] % (Auto) Eos % (Auto) Baso % (Auto) Neut # (Auto) Lymph # (Auto) [place] # (Auto) Eos # (Auto) Baso # (Auto) Total Counted Seg Neutrophils % Band Neutrophils % Lymphocytes % (Manual) Atypical Lymphs % Monocytes % (Manual) Basophils % (Manual) Myelocytes % Blast Cells % Neutrophils # (Manual) Smudge Cells RBC Morphology Hypochromasia Anisocytosis ABG pH ABG pCO2 ABG pO2 ABG HCO3 ABG Total CO2 ABG O2 Saturation ABG Base Excess FiO2 Sodium Potassium Chloride Carbon Dioxide BUN Creatinine Estimated GFR BUN/Creatinine Ratio Glucose Lactate Calcium Magnesium Total Bilirubin Conjugated Bilirubin Unconjugated Bilirubin AST ALT Alkaline Phosphatase Total Protein Albumin Globulin Albumin/Globulin Ratio TSH 1.57 Nasal Screen MRSA (PCR) Blood Type Antibody Screen Crossmatch Assessment & Plan Assessment & Plan narrative: Elise Lagunas is an 79-year-old female with past medical history of dementia, type 2 diabetes no longer on any therapies, 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 She is admitted with sepsis secondary to likely acute cystitis. 1. Sepsis, acute, present on admission -sofa score of 3, patient presented with mild worsening of her creatinine, confusion, and had reported low blood pressure at her living facility. Was further informed that she had some bright red blood which may be more indicative of a GI bleed rather from the trauma itself. -UA on admission was grossly positive with leuk esterase and nitrates, cultures have been sent. -patient was given a dose of Zosyn and vancomycin empirically in the emergency room, will continue Zosyn at this time for likely acute cystitis until cultures result. 2. Acute cystitis, present on admission, recurrent -patient was given a dose of Zosyn and vancomycin for presumed sepsis in the ER. continue zosyn as noted above. -follow-up repeat urine cultures and blood cultures ordered in the emergency room 3. Toxic metabolic encephalopathy, present on admission, active -possibly in the setting of sepsis, however her differential as to why she is altered is quite broad. Considerations include possible seizure, sepsis as previously stated, acute GI bleeding, acute CVA. Horizontal nystagmus is improved. Consider MRI when able depending on continued exams. Given significant leukocytosis not responding to abx consider leukemia. Have sent for pathologist review. -patient had a negative head CT on admission, this was repeated when her mental status decreased quite suddenly which did not show any changes. -ABG did not show evidence of hypercarbia. 4. Acute on chronic anemia secondary to acute blood loss, present on admission - continue protonix IV BID, likely upper GI bleeding given BUN of 115. - s/p 3 U PRBC on 05/30 for Hg of 5.3 with response to 9.0. 5. GI bleeding, likely upper, present on admission - protonix BID 6. Acute kidney injury on chronic Chronic kidney disease, stage III -prior admission creatinine appeared around 1.7. Slightly worsened today with a creatinine of 2.54 from 1.97 likely in the setting of sepsis and acute anemia. -continue to monitor creatinine, avoid nephrotoxic medications, and renally dose medications as necessary 7. Pulmonary fibrosis with chronic hypoxemic respiratory failure, present on admission, chronic -does not represent a current exacerbation -patient is chronically on 2-3 L home oxygen, will consult respiratory therapy, continue to titrate oxygen to maintain O2 saturations between 88 and 96%. 8. Chronic heart failure with preserved ejection fraction -echocardiogram performed previous admission revealed heart failure with preserved ejection fraction -patient does not have any evidence of volume overload on exam, and further does not report any recent shortness of breath. 9. Type 2 diabetes, chronic -glucose of 206 on admission, not currently on any medications. -continue fingersticks a.c. HS 10. History of prior CVA -continue home Lipitor 11. Hypertension, chronic -continue home amlodipine, carvedilol, and hydralazine 12. Hyperlipidemia, chronic -continue home Lipitor 13. Dementia, chronic -continue home Seroquel and rivastigmine 14. Depression and anxiety, chronic -continue hydroxyzine 50 mg twice daily as needed for anxiety when able to tolerate oral intake. Have ordered low-dose Ativan at this time. 15. Leukocytosis - severe to 41 today. Have sent smear for pathologist review which is pending. Code: DNR as discussed with the patient, surrogate decision maker is the patient's , Bob. Will have discussion about goals of care today about persuing GI bleeding, leukocytosis and possible bone marrow biopsy if warranted. DVT: HSQ BID COVID19: negative. Quality VTE Deep Vein Thrombosis/Pulmonary Embolism Present on Admission: No
[2020-05-31] MEDS: INSULIN ASPART 100 UNIT/ML INSULN PEN SUBCUT ×2 (12:34→17:45)
[2020-05-31 21:38] LABS: Add Manual Diff / Slide Review NO; Basophils Absolute Auto 100 /uL (0-100); Basophils Percent Auto 0.4 % (0-2); Eosinophils Absolute Auto 200 /uL (0-450); Eosinophils Percent Auto 0.6 % (2-4); Hemoglobin 8.2 g/dL (12.0-16.0); Lymphocytes Absolute Auto 14000 /uL (1100-4500); Lymphocytes Percent Auto 41.8 % (25-40); Mean Corpuscular HGB Conc 32.8 % (30-36); Mean Corpuscular Hemoglobin 29.7 PG (26-34); Mean Corpuscular Volume 90.6 fL (80-100); Monocytes Absolute Auto 2400 /uL (0-900); Monocytes Percent Auto 7.2 % (3-14); Neutrophils Absolute Auto 16800 /uL (1500-7000); Platelet Count 191 X10^3/uL (150-400); Red Blood Cell Count 2.76 X10^6/uL (4.0-5.2); Red Cell Distribution Width 15.9 % (11.6-14.8)
[2020-05-31 21:40] LABS: White Blood Cell Count 33.5 X10^3/uL (4.5-11.0)
[2020-06-01] VITALS (39 sets, daily range): BP systolic 119–135; BP diastolic 56–62; PULSE 91–112; RESP 3–31; TEMP 36.4–36.9; O2SAT 83–100
[2020-06-01] MEDS: PIPERACILLIN-TAZO 2.25 GM/50 ML FROZ.PIGGY IV ×2 (00:32→09:04)
[2020-06-01] MEDS: MORPHINE 2 MG/ML INJ IV ×3 (04:29→14:35)
--- NOTE | 2020-06-01 04:38 | PC.NURSE ---
0340-Pt noted to be restless in bed, facial grimace and occasionally moaning. Medicated for pain. Attempted oral suction, this agitated Pt more. Repositioned for comfort.
[2020-06-01 05:00] LABS: Hematocrit 24.9 % (36-46); Mean Corpuscular HGB Conc 31.9 % (30-36); Mean Corpuscular Hemoglobin 29.4 PG (26-34); Mean Corpuscular Volume 91.9 fL (80-100); Platelet Count 189 X10^3/uL (150-400); Red Blood Cell Count 2.71 X10^6/uL (4.0-5.2); Red Cell Distribution Width 16.2 % (11.6-14.8)
[2020-06-01 05:05] LABS: Alanine Aminotransferase 95 IU/L (<35); Albumin 2.9 g/dL (3.5-5.0); Albumin Globulin Ratio 1.2 (1.0-2.8); Alkaline Phosphatase 41 U/L (38-126); Aspartate Aminotransferase 116 IU/L (14-36); Bilirubin Total 0.4 mg/dL (0.2-1.3); Bilirubin Unconjugated 0.3 mg/dL (0.0-1.1); Calcium 8.1 mg/dL (8.4-10.2); Carbon Dioxide 22 mmol/L (22-32); Chloride 110 mmol/L (98-107); Globulin 2.4 g/dL (1.7-4.1); Glucose 165 mg/dL (80-110); HEMOLYSIS < 15 (0-50); Magnesium 2.2 mg/dL (1.6-2.3); Potassium 4.8 mmol/L (3.4-5.1); Sodium 141 mmol/L (137-145); Total Protein 5.3 g/dL (6.3-8.2)
[2020-06-01 05:12] LABS: BUN Creatinine Ratio 39.2 (6-22)
[2020-06-01 05:14] LABS: Blood Urea Nitrogen 125 mg/dL (7-17)
[2020-06-01 05:15] LABS: Add Manual Diff / Slide Review YES; White Blood Cell Count 33.4 X10^3/uL (4.5-11.0)
[2020-06-01 05:58] LABS: Total Cells Counted 100
[2020-06-01 05:59] LABS: Anisocytosis 1+; Neutrophils Absolute Manual 18704 /uL (3000-5900)
[2020-06-01] MEDS: INSULIN ASPART 100 UNIT/ML INSULN PEN SUBCUT ×2 (06:36→12:25)
[2020-06-01] MEDS: ALBUTEROL 2.5 MG/3 ML NEB (ADULT) INH (08:22)
--- NOTE | 2020-06-01 08:47 | DI.US.S_ITS ---
PROCEDURE: US RENAL COMPLETE INDICATIONS: HECTOR TECHNIQUE: Real-time scanning was performed of the kidneys and bladder, with image documentation. COMPARISON: None. FINDINGS: Overall limited evaluation of the kidneys. Kidneys: Kidneys are normal in size. Right kidney measures 9.9 cm long; left kidney measures 10 cm long. Right renal cortical thickness is 1.4 cm; left renal cortical thickness is 1.5 cm. Renal cortical echotexture is normal. There is a 9 mm nonobstructing stone seen within the left mid kidney. No nephrolithiasis. No suspicious solid mass lesions. Bladder: Decompressed by a Nair catheter. Miscellaneous: No free pelvic fluid. IMPRESSION: Limited study demonstrating no hydronephrosis. Nonobstructing 9 mm left-sided kidney stone noted. Dictated by: Donato Raphael M.D. on 06/01/2020 at 9:05 Approved by: Donato Raphael M.D. on 06/01/2020 at 9:08
[2020-06-01] MEDS: SODIUM CHLORIDE 0.9% FLUSH 10 ML IV (09:04)
[2020-06-01] MEDS: PANTOPRAZOLE 40 MG VIAL IV (09:04)
[2020-06-01] MEDS: POLYVINYL ALCOHOL DROPS 2 DROPS EYE-BOTH ×2 (09:05→14:08)
[2020-06-01] MEDS: VANCOMYCIN 1,000 MG/200 ML PIGGYBACK 200 MG IV (09:57)
--- NOTE | 2020-06-01 10:56 | DI.MRI.S_ITS ---
PROCEDURE: MR HEAD/BRAIN WO CON INDICATIONS: altered mental status TECHNIQUE: This patient was moving during acquisition and could not tolerate standard scanning parameters. Only several repeated attempts at diffusion weighted imaging with ADC maps were performed. COMPARISON: [facility], CT, CT HEAD/BRAIN WO CON, 05/30/2020, 12:36. [facility], CT, CT HEAD/BRAIN WO CON, 05/30/2020, 7:37. FINDINGS: Image quality: This study is limited by nonstandard positioning. Furthermore, the patient could not tolerate the standard scanning protocol and limited FAST scanning was performed. This examination is limited by involuntary motion artifact. On these images, there is a moderate to large left posterior cerebral infarction seen involving the posterior superior right frontal lobe as well as the occipital lobe, including medially. There is associated dark signal on the ADC map. IMPRESSION: There is a moderate to large acute infarction seen involving the posterior aspect of the left cerebral hemisphere. This cannot be seen on the recent prior head CT examinations, even in retrospect. Highly limited MRI. Dictated by: Donato Raphael M.D. on 06/01/2020 at 14:06 Approved by: Donato Raphael M.D. on 06/01/2020 at 14:09
[2020-06-01] MEDS: FUROSEMIDE 40 MG/4 ML VIAL IV (13:24)
[2020-06-01] MEDS: LORazepam 2 MG/ML INJ 1 MG IV ×2 (14:35→22:48)
--- NOTE | 2020-06-01 14:37 | P.PN_ITS ---
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 She had 2-head CTs and was alert and oriented on admission but became comatose shortly after admission. She remains comatose this morning. Her Hg has remained stable, Cr chong but urine output picked up a little bit today. Has become slightly more hypoxic on fluids which were discontinued and she was given 40 mg of IV lasix. Will give some ativan prior to attempting MRI today. Discussed with the , patient is DNR and does not want any supplemental nutrition. I explained that if her mental status does not improve she will likely need to be placed on hospice given these wishes. I also explained that the patient possibly has a leukemia given her markedly elevated l eukocytosis, but he did not seem interested in a biopsy or further treatment. Will rediscuss with the after MRI regarding possible placement on comfort care. Exam Vital Signs (past 8 hours): - 06/01/20 08:00 06/01/20 08:23 06/01/20 09:00 Temperature 97.6 F Pulse Rate 101 H 100 H Respiratory Rate 14 14 Blood Pressure 131/61 Pulse Oximetry 99 99 95 06/01/20 12:00 06/01/20 12:41 Temperature 98.5 F Pulse Rate 108 H Respiratory Rate 16 Blood Pressure 130/60 Pulse Oximetry 98 97 Fraction of Inspired Oxygen 50 Oxygen Delivery Method High Flow Nasal Cannula Oxygen Flow Rate 4 Narrative Exam Narrative: GENERAL APPEARANCE: Pale, chronically ill-appearing female in no acute distress SKIN: Inspection of the skin reveals no rashes, ulcerations or petechiae. HEENT: Left eye prosthesis, improved horizontal nystagmus, right pupil approximately 3-4 mm and not reactive NECK: Supple and symmetric. There was no thyroid enlargement, and no tenderness, or masses were felt. CHEST: Normal AP diameter and normal contour without any kyphoscoliosis. LUNGS: Auscultation of the lungs revealed no wheezes, rhonchi, or rales. CARDIOVASCULAR: Mildly tachycardic rate with regular rhythm, 2/6 systolic mur mur. No rubs or gallops. ABDOMEN: Soft and nontender with normal bowel sounds. No ascites was noted. MUSCULOSKELETAL: There was no tenderness or effusions noted. Muscle strength and tone were normal. EXTREMITIES: No cyanosis, clubbing. Trace edema bilateral lower extremities NEUROLOGIC: No verbal response, eyes closed, pupil exam is noted above. Intermittent movement of her extremities, withdrawals from pain, difficult to tell but she seemingly moves right-sided somewhat better than her left. Objective Labs Result Diagrams: 06/01/20 04:35 06/01/20 04:35 Labs: Laboratory Results - last 24 hr 05/31/20 06/01/20 06/01/20 21:22 04:35 04:35 WBC 33.5 H* 33.4 H* RBC 2.76 L 2.71 L Hgb 8.2 L 8.0 L Hct 25.0 L 24.9 L MCV 90.6 91.9 MCH 29.7 29.4 MCHC 32.8 31.9 RDW 15.9 H 16.2 H Plt Count 191 189 Neut % (Auto) 50.0 Not Reportable Lymph % (Auto) 41.8 H Not Reportable [place] % (Auto) 7.2 Not Reportable Eos % (Auto) 0.6 L Not Reportable Baso % (Auto) 0.4 Not Reportable Neut # (Auto) 04360 H Lymph # (Auto) 40791 H Not Reportable [place] # (Auto) 2400 H Not Reportable Eos # (Auto) 200 Baso # (Auto) 100 Not Reportable Total Counted 100 Seg Neutrophils % 53.0 Band Neutrophils % 3.0 Lymphocytes % (Manual) 43.0 Eosinophils % (Manual) 1.0 L Neutrophils # (Manual) 09602 H RBC Morphology See below Anisocytosis 1+ H Sodium 141 Potassium 4.8 Chloride 110 H Carbon Dioxide 22 BUN 125 H* Creatinine 3.19 H Estimated GFR 14.0 L BUN/Creatinine Ratio 39.2 H Glucose 165 H Calcium 8.1 L Magnesium 2.2 Total Bilirubin 0.4 Conjugated Bilirubin 0.0 Unconjugated Bilirubin 0.3 AST 116 H ALT 95 H Alkaline Phosphatase 41 Total Protein 5.3 L Albumin 2.9 L Globulin 2.4 Albumin/Globulin Ratio 1.2 Assessment & Plan Assessment & Plan narrative: Elise Lagunas is an 79-year-old female with past medical history of dementia, type 2 diabetes no longer on any therapies, 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 She is admitted with sepsis secondary to likely acute cystitis. 1. Sepsis, acute, present on admission -sofa score of 3, patient presented with mild worsening of her creatinine, confusion, and had reported low blood pressure at her living facility. Was further informed that she had some bright red blood which may be more indicative of a GI bleed rather from the trauma itself. -UA on admission was grossly positive with leuk esterase and nitrates, cultures from blood were negative but urine grew a dobson-sensitive E. Coli. -patient was given a dose of Zosyn and vancomycin empirically in the emergency room, will continue Zosyn at this time for not only acute cystitis but also the possibility of aspiration. Today is day 3/7 of antibiotic course. 2. Acute cystitis, present on admission, recurrent -patient was given a dose of Zosyn and vancomycin for presumed sepsis in the ER. continue zosyn as noted above. -will continue zosyn as noted above. 3. Toxic metabolic encephalopathy, present on admission, active -possibly in the setting of sepsis, however her differential as to why she is altered is quite broad. Considerations include possible seizure, sepsis as previously stated, acute GI bleeding, acute CVA. Horizontal nystagmus is improved. Will attempt MRI today with sedation. Given significant leukocytosis not responding to abx consider leukemia. Have sent for pathologist review. -patient had a negative head CT on admission, this was repeated when her mental status decreased quite suddenly which did not show any changes. -ABG did not show evidence of hypercarbia. 4. Acute on chronic anemia secondary to acute blood loss, present on admission - continue protonix IV BID, likely upper GI bleeding given BUN of 115. - s/p 3 U PRBC on 05/30 for Hg of 5.3 with response to 9.0. Has slowly trended down to 8.0 - transfuse for Hg <7. 5. GI bleeding, likely upper, present on admission - as noted above in problem 4. 6. Acute kidney injury on chronic Chronic kidney disease, stage III -prior admission creatinine appeared around 1.7. Continues to worsen today with a creatinine of 3.19 from 1.97 likely in the setting of sepsis and acute anemia. Urine output has picked up slightly today. -continue to monitor creatinine, avoid nephrotoxic medications, and renally dose medications as necessary 7. Pulmonary fibrosis with acute chronic hypoxemic respiratory failure, present on admission, chronic -does not represent a current exacerbation -patient is chronically on 2-3 L home oxygen, will consult respiratory therapy, continue to titrate oxygen to maintain O2 saturations between 88 and 96%. -patient increased to 10 L of supplemental O2 today. Likely secondary to fluid overload, attempted diuresis as noted below. 8. Chronic heart failure with preserved ejection fraction, possible acute exacerbation due to fluid resuscitation. -echocardiogram performed previous admission revealed heart failure with preserved ejection fraction -patient developed worsening oxygen requirement today. Have held fluids and gave one time dose of 40 mg lasix to assess response. 9. Type 2 diabetes, chronic -glucose of 206 on admission, not currently on any medications. -continue fingersticks a.c. HS and sliding scale insulin to help with hyperkalemia. 10. History of prior CVA -continue home Lipitor 11. Hypertension, chronic -continue home amlodipine, carvedilol, and hydralazine 12. Hyperlipidemia, chronic -continue home Lipitor 13. Dementia, chronic -continue home Seroquel and rivastigmine 14. Depression and anxiety, chronic -continue hydroxyzine 50 mg twice daily as needed for anxiety when able to tolerate oral intake. Have ordered low-dose Ativan at this time. 15. Leukocytosis - severe to 41 today. Have sent smear for pathologist review which is pending. 16. hyperkalemia, improved. - likely in setting of acute renal failure. Improved with kayexalate, insulin, calcium. Will continue sliding scale insulin as noted above. Improved to 4.8 today. Code: DNR as discussed with the patient, surrogate decision maker is the patient's , Bob. Patient would not want feeding tube per . Will discuss after MRI today regarding possible transition to comfort care depending on results. DVT: HSQ BID COVID19: negative. COVID-19 COVID-19 status: Negative Quality VTE Deep Vein Thrombosis/Pulmonary Embolism Present on Admission: No
--- NOTE | 2020-06-01 14:45 | PC.NURSE ---
Day Shift Note Pt down to MRI at 1445, premedicated with morphine and ativan (see emar). Pt nonresponsive throughout shift, not following commands, not tracking. Restless and moaning at times in bed, highly prefers right side-lying position. Small 1 cm split to gluteal cleft noted, surrounding skin erythemic but blanchable - allevyn dressing applied to open area. Pt off back/buttocks most of shift. Desaturations to the 80-81% range noted while patient on 4L HFNC; pt recovered with increased oxygen (10L) , repositioning, and oral suctioning. Desaturation episodes x2 resolved quickly and oxygen returned to 4L. Lung sounds coarse bilaterally. Dr. Onofre updated and order received for 40 mg Lasix IV which was given. Nair catheter draining clear yellow urine. Bed alarm on.
--- NOTE | 2020-06-01 16:02 | CM.DPC ---
DCP/continued: Reviewed chart. Spoke with Dr. Onofre whom indicates that MRI revealed patient had CVA. Dr. Onofre has spoken to spouse and patient now on comfort measures. Unclear at this time if patient will transfer back to [place] with hospice, go to [facility] under comfort benefit, or in the hospital. Per Nadya at hospice they have wait list for new starts in [place]. This may need to be rechecked in AM on 06-02-20. Will request [employer] follow up for d/c planning needs on 06-02-20. KELLY García
--- NOTE | 2020-06-01 16:21 | PC.NURSE ---
Evening shift note Pt returned to room after MRI, Dr Onofre talked to pt Lemuel regarding results of MRI, decision was made to make pt comfort care. All interventions besides comfort care discontinued. Report given to Acute Care nurse Larissa, pt moved with all of her belongings to room 218, no further patient contact at this time.
[2020-06-02 01:27] VITALS: PULSE 105; RESP 16; O2SAT 97
[2020-06-02] MEDS: MORPHINE 10 MG/0.5 ML ORAL SYRINGE PO ×2 (04:02→08:02)
[2020-06-02] MEDS: SCOPOLAMINE 1 PATCH TOP (04:08)
--- NOTE | 2020-06-02 04:29 | PC.NURSE ---
0402 Pt. was very restless, noted upper airway very rhonchorous. Medicated with 10 mg. of Morphine elixir & Scopolamine administered behind Rt. ear. Mouth was swabbed done prior to admin. Morphine. Will monitor.
[2020-06-02] MEDS: LORazepam 2 MG/ML INJ 1 MG IV (05:26)
--- NOTE | 2020-06-02 05:31 | PC.NURSE ---
Restless & moaning 1 mg. Lorazepam IVP admin. Will monitor.
[2020-06-02] MEDS: SODIUM CHLORIDE 0.9% FLUSH 10 ML IV ×2 (08:00→19:18)
[2020-06-02] MEDS: POLYVINYL ALCOHOL DROPS 2 DROPS EYE-BOTH (08:03)
[2020-06-02 09:45] VITALS: BP 121/52; PULSE 116; RESP 20; TEMP 37.4; O2SAT 48
[2020-06-02] MEDS: MORPHINE 2 MG/ML INJ IV ×7 (10:08→22:44)
--- NOTE | 2020-06-02 13:25 | P.PN_ITS ---
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 facility. She had 2-head CTs and was alert and oriented on admission but became comatose shortly after admission. She remains comatose this morning. She was made comfort care with plan for hospice after an MRI showed a moderate large acute CVA of her left cerebral hemisphere. Exam Vital Signs (past 8 hours): - 06/02/20 09:45 Temperature 99.4 F Pulse Rate 116 H Respiratory Rate 20 Blood Pressure 121/52 L Pulse Oximetry 48 L Fraction of Inspired Oxygen 50 Oxygen Delivery Method Non -Rebreather Oxygen Flow Rate 0 Narrative Exam Narrative: GENERAL APPEARANCE: Pale, chronically ill-appearing female in no acute distress SKIN: Inspection of the skin reveals no rashes, ulcerations or petechiae. HEENT: Left eye prosthesis, improved horizontal nystagmus, right pupil approximately 3-4 mm and not reactive NECK: Supple and symmetric. There was no thyroid enlargement, and no tenderness, or masses were felt. CHEST: Normal AP diameter and normal contour without any kyphoscoliosis. LUNGS: Auscultation of the lungs revealed no wheezes, rhonchi, or rales. CARDIOVASCULAR: Mildly tachycardic rate with regular rhythm, 2/6 systolic murmur. No rubs or gallops. ABDOMEN: Soft and nontender with normal bowel sounds. No ascites was noted. MUSCULOSKELETAL: There was no tenderness or effusions noted. Muscle strength and tone were normal. EXTREMITIES: No cyanosis, clubbing. Trace edema bilateral lower extremities NEUROLOGIC: No verbal response, eyes closed, pupil exam is noted above. Intermittent movement of her extremities, withdrawals from pain, difficult to tell but she seemingly moves right-sided somewhat better than her left. Objective Labs Result Diagrams: 06/01/20 04:35 06/01/20 04:35 Assessment & Plan Assessment & Plan narrative: Elise Lagunas is an 79-year-old female with past medical history of dementia, type 2 diabetes no longer on any therapies, 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 She is admitted with sepsis secondary to likely acute cystitis. She had an aburpt onset of altered mental status and ultimately found to have a large CVA on MRI yesterday. After this, given patient's previously discussed wishes, elected for comfort care. Her passing appears imminent. 1. Sepsis, acute, present on admission -sofa score of 3, patient presented with mild worsening of her creatinine, confusion, and had reported low blood pressure at her living facility. Was fur ther informed that she had some bright red blood which may be more indicative of a GI bleed rather from the trauma itself. -UA on admission was grossly positive with leuk esterase and nitrates, cultures from blood were negative but urine grew a dobson-sensitive E. Coli. -patient was given a dose of Zosyn and vancomycin empirically in the emergency room and continued on Zosyn for not only acute cystitis but also the possibility of aspiration. She received 3 days of therapy prior to decision for comfort care where further treatments were stopped. 2. Acute cystitis, present on admission, recurrent -patient was given a dose of Zosyn and vancomycin for presumed sepsis in the ER. continued on zosyn as noted above for a total of 3 days before additional treatments were made. 3. Ruled out Toxic metabolic encephalopathy -possibly in the setting of sepsis, however after MRI and abrupt change without response to antibiotics it is clear this is consistent with a large acute CVA. -patient had a negative head CT on admission, this was repeated when her mental status decreased quite suddenly which did not show any changes. -ABG did not show evidence of hypercarbia. 4. Acute CVA, unclear if present on admission - MRI showing a large / moderate acute infarct of the left cerebral hemisphere. Devastating neurological deficits and patient remains comatose. Decision made for comfort care per based on prior wishes. 4. Acute on chronic anemia secondary to acute blood loss, present on admission - continued on protonix IV BID for 3 days due to likely upper GI bleeding given BUN of 115. - s/p 3 U PRBC on 05/30 for Hg of 5.3 with response to 9.0. Slowly trended down but will stop trending given comfort care wishes. 5. GI bleeding, likely upper, present on admission - as noted above in problem 4. 6. Acute kidney injury on chronic Chronic kidney disease, stage III -prior admission creatinine appeared around 1.7. Continued to worse with a creatinine of 3.19 from 1.97 likely in the setting of sepsis and acute anemia. Will stop trending given comfort wishes. 7. Pulmonary fibrosis with acute chronic hypoxemic respiratory failure, present on admission, chronic -does not represent a current exacerbation -patient is chronically on 2-3 L home oxygen, will consult respiratory therapy, continue to titrate oxygen to maintain O2 saturations between 88 and 96%. -patient increased to 10 L of supplemental O2. Likely secondary to fluid overload, attempted diuresis as noted below. Stopped further treaments on 06/01/20. 8. Chronic heart failure with preserved ejection fraction, possible acute exacerbation due to fluid resuscitation. -echocardiogram performed previous admission revealed heart failure with preserved ejection fraction -patient developed worsening oxygen requirement on 06/01. Held fluids and gave one time dose of 40 mg lasix to assess response. Decision made later in the day to transition to comfort measures. 9. Type 2 diabetes, chronic -glucose of 206 on admission, not currently on any medications. -no further monitoring. 10. History of prior CVA -continued home Lipitor until 06/01. 11. Hypertension, chronic -continued home amlodipine, carvedilol, and hydralazine until 06/01. 12. Hyperlipidemia, chronic -continued home Lipitor until 06/01. 13. Dementia, chronic -continued home Seroquel and rivastigmine until 06/01. 14. Depression and anxiety, chronic 15. Leukocytosis - concern for possible leukemia, family does not wish for further evaluation. 16. hyperkalemia, improved. - likely in setting of acute renal failure. Improved with kayexalate, insulin, calcium. No further lab testing given wishes. 17. End of life care. Code: DNR as discussed with the patient, surrogate decision maker is the patient's , Bob. Patient would not want feeding tube per . Transitioned to comfort care after limited MRI showed a moderate to large infar ct with devastating neurological impact. DVT: Hold for comfort. COVID19: negative. Dispo: pending placement on hospice either to [place] or possibly [facility] rehab, however patient's passing appears imminent and she may not last until transfer. Quality VTE Deep Vein Thrombosis/Pulmonary Embolism Present on Admission: No
--- NOTE | 2020-06-02 13:26 | CM.DPC ---
DCP Comfort Care Per MD, pt somewhat stable but likely imminent with shallow poor respiration but pt not mottled and still warm to the touch. Spouse has not been bedside yet. SW made [facility] referral although they still have a waitlist and unknown of potential start date yet. KASANDRA called [facility] to review for Comfort Measures under Medicare benefits and then if pt survives a few days then possible plan of return to [place] with [facility]. Although pt's Oxygen sats are very low and may in the hospital. Per Brenda at [facility], pt will need to be well managed on p.o. meds for 24 hours before they could accept. Pt currently receiving both p.o. and IV-morphine and Ativan. Plan: KASANDRA to follow in the morning to determine how stable patient is and if she could be safely switched to p.o. meds for 24 hrs before being accepted at [facility] on Comfort Measures. KELLY Ordonez
[2020-06-03] MEDS: MORPHINE 2 MG/ML INJ IV ×4 (05:46→13:57)
[2020-06-03] MEDS: SODIUM CHLORIDE 0.9% FLUSH 10 ML IV ×4 (05:46→20:07)
[2020-06-03] MEDS: POLYVINYL ALCOHOL DROPS 2 DROPS EYE-BOTH (08:47)
[2020-06-03 09:00] VITALS: BP 103/50; PULSE 106; RESP 20; TEMP 38.2; O2SAT 35
--- NOTE | 2020-06-03 12:16 | P.PN_ITS ---
Subjective Subjective Date Patient Seen: 06/03/20 Time Patient Seen: 08:30 Interval history: Elise Lagunas is an 79-year-old female with past medical history of dementia, type 2 diabetes no longer on any therapies, prior CVA without deficits, chronic kidney disease, hyperlipidemia, hypertension, depression and anxiety, pulmonary fibrosis, and recent admission with newly diagnosed heart failure with preserved ejection fraction who presented after a fall at her [facility] facility. She had 2-head CTs and was alert and oriented on admission but became comatose shortly after admission. She remains comatose this morning. She was made comfort care with plan for hospice after an MRI showed a moderate large acute CVA of her left cerebral hemisphere. Exam Vital Signs (past 8 hours): - 06/03/20 09:00 Temperature 100.7 F H Pulse Rate 106 H Respiratory Rate 20 Blood Pressure 103/50 L Pulse Oximetry 35 L Fraction of Inspired Oxygen 50 Oxygen Delivery Method Non -Rebreather Oxygen Flow Rate 0 Narrative Exam Narrative: GENERAL APPEARANCE: Pale, chronically ill-appearing female in no acute distress SKIN: Inspection of the skin reveals no rashes, ulcerations or petechiae. HEENT: Left eye prosthesis, no horizontal nystagmus, right pupil approximately 3-4 mm and not reactive NECK: Supple and symmetric. There was no thyroid enlargement, and no tenderness, or masses were felt. CHEST: Normal AP diameter and normal contour without any kyphoscoliosis. LUNGS: Auscultation of the lungs revealed no wheezes, rhonchi, or rales. CARDIOVASCULAR: Mildly tachycardic rate with regular rhythm, 2/6 systolic murmur. No rubs or gallops. ABDOMEN: Soft and nontender with normal bowel sounds. No ascites was noted. MUSCULOSKELETAL: There was no tenderness or effusions noted. Muscle strength and tone were normal. EXTREMITIES: No cyanosis, clubbing. Trace edema bilateral lower extremities NEUROLOGIC: No verbal response, eyes closed, pupil exam is noted above. Intermittent movement of her extremities, withdrawals from pain, difficult to tell but she seemingly moves right-sided somewhat better than her left. Objective Labs Result Diagrams: 06/01/20 04:35 06/01/20 04:35 Labs: Laboratory Results - last 24 hr 05/31/20 10:51 Smear Path Review Assessment & Plan Assessment & Plan narrative: Elise Lagunas is an 79-year-old female with past medical history of dementia, type 2 diabetes no longer on any therapies, 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 She is admitted with sepsis secondary to likely acute cystitis. She had an aburpt onset of altered mental status and ultimately found to have a large CVA on MRI yesterday. After this, given patient's previously discussed wishes, elected for comfort care. Her passing appears imminent. discharge coordinators working on possible transfer to [facility] or back to [place] however they state patient should be controlled on oral medications for 24 hours, will discontinue IV medications today. 1. Sepsis, acute, present on admission -sofa score of 3, patient presented with mild worsening of her creatinine, confusion, and had reported low blood pressure at her living facility. Was further informed that she had some bright red blood which may be more indicative of a GI bleed rather from the trauma itself. -UA on admission was grossly positive with leuk esterase and nitrates, cultures from blood were negative but urine grew a dobson-sensitive E. Coli. -patient was given a dose of Zosyn and vancomycin empirically in the emergency room and continued on Zosyn for not only acute cystitis but also the possibility of aspiration. She received 3 days of therapy prior to decision for comfort care where further treatments were stopped. 2. Acute cystitis, present on admission, recurrent -patient was given a dose of Zosyn and vancomycin for presumed sepsis in the ER. continued on zosyn as noted above for a total of 3 days before additional treatments were made. 3. Ruled out Toxic metabolic encephalopathy -possibly in the setting of sepsis, however after MRI and abrupt change without response to antibiotics it is clear this is consistent with a large acute CVA. -patient had a negative head CT on admission, this was repeated when her mental status decreased quite suddenly which did not show any changes. -ABG did not show evidence of hypercarbia. 4. Acute CVA, unclear if present on admission - MRI showing a large / moderate acute infarct of the left cerebral hemisphere. Devastating neurological deficits and patient remains comatose. Decision made for comfort care per based on prior wishes. 4. Acute on chronic anemia secondary to acute blood loss, present on admission - continued on protonix IV BID for 3 days due to likely upper GI bleeding given BUN of 115. - s/p 3 U PRBC on 05/30 for Hg of 5.3 with response to 9.0. Slowly trended down but will stop trending given comfort care wishes. 5. GI bleeding, likely upper, present on admission - as noted above in problem 4. 6. Acute kidney injury on chronic Chronic kidney disease, stage III -prior admission creatinine appeared around 1.7. Continued to worse with a creatinine of 3.19 from 1.97 likely in the setting of sepsis and acute anemia. Will stop trending given comfort wishes. 7. Pulmonary fibrosis with acute chronic hypoxemic respiratory failure, present on admission, chronic -does not represent a current exacerbation -patient is chronically on 2-3 L home oxygen, will consult respiratory therapy, continue to titrate oxygen to maintain O2 saturations between 88 and 96%. -patient increased to 10 L of supplemental O2. Likely secondary to fluid overload, attempted diuresis as noted below. Stopped further treaments on 06/01/20. 8. Chronic heart failure with preserved ejection fraction, possible acute exacerbation due to fluid resuscitation. -echocardiogram performed previous admission revealed heart failure with preserved ejection fraction -patient developed worsening oxygen requirement on 06/01. Held fluids and gave one time dose of 40 mg lasix to assess response. Decision made later in the day to transition to comfort measures. 9. Type 2 diabetes, chronic -glucose of 206 on admission, not currently on any medications. -no further monitoring. 10. History of prior CVA -continued home Lipitor until 06/01. 11. Hypertension, chronic -continued home amlodipine, carvedilol, and hydralazine until 06/01. 12. Hyperlipidemia, chronic -continued home Lipitor until 06/01. 13. Dementia, chronic -continued home Seroquel and rivastigmine until 06/01. 14. Depression and anxiety, chronic 15. Leukocytosis - concern for possible leukemia, family does not wish for further evaluation. 16. hyperkalemia, improved. - likely in setting of acute renal failure. Improved with kayexalate, insulin, calcium. No further lab testing given wishes. 17. End of life care. Code: DNR as discussed with the patient, surrogate decision maker is the patient's , Bob. Patient would not want feeding tube per . Transitioned to comfort care after limited MRI showed a moderate to large infarct with devastating neurological impact. DVT: Hold for comfort. COVID19: negative. Dispo: pending placement on hospice either to [place] or possibly [facility] rehab, however patient's passing appears imminent and she may not last until transfer. They require her to be managed for 24 hours without IV medications, will transition to oral medications today and discontinue IV. Quality VTE Deep Vein Thrombosis/Pulmonary Embolism Present on Admission: No
[2020-06-03 22:37] VITALS: BP 109/49; PULSE 103; RESP 16; TEMP 37.1; O2SAT 48
[2020-06-04] MEDS: MORPHINE 2 MG/ML INJ IV (05:03)
[2020-06-04 06:00] VITALS: O2SAT 65
[2020-06-04 09:06] VITALS: BP 131/52; PULSE 97; RESP 20; TEMP 36.1; O2SAT 67
[2020-06-04] MEDS: SODIUM CHLORIDE 0.9% FLUSH 10 ML IV (09:24)
--- NOTE | 2020-06-04 09:40 | P.DS_ITS ---
History of Present Illness History of Present Illness Date Patient Seen: 05/30/20 Chief complaint: Fall out of bed Narrative: Written by Dr. 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 Staff at the facility heard a loud thud, then came into her room to find her face down near her bed with a bleeding nose. Patient does not recall falling and did not know why she was in the hospital. She has a history of dementia. She currently denies any shortness of breath, chest pain, headache, dizziness, palpitations, abdominal pain, dysuria, fever, chills. According to the ER provider had a discussion with the nurse practitioner at her assisted living facility, yesterday her blood pressure was low (80s systolic) and some of her blood pressure medications were withheld. In the emergency room, her blood pressure was 102/76, no tachycardia. She was saturating at 94% on 2 L, consistent with her prior oxygen use. Initial lab findings revealed a leukocytosis of 30.8, hemoglobin of 7.4, and platelet count of 273. Chemistries revealed a creatinine of 1.97 up slightly from her prior admission where her baseline appear to be around 1.7. Glucose was 206, potassium 5.3, lactate was 4. Urinalysis was grossly positive with 10-30 white blood cells, many bacteria, nitrites and leuk esterase positive. Specimen was sent for culture. COVID-19 testing was negative. Upon arrival to the emergency room, patient was noted to be quite lethargic per ER provider report, but improved with fluid administration, although on my examination she is still somewhat confused compared to her prior admission. Repeat lactate is currently pending. She was admitted under inpatient status for sepsis secondary to acute cystitis. Discharge Providers Provider Date of admission: 05/30/20 09:39 Discharge Date: 06/04/20 Consults: 05/30/20 11:12 Consult to Occupational Therapy Evaluate & Treat Comment: Physician Instructions: Evaluate and treat Consult to Physical Therapy Evaluate & Treat Comment: Physician Instructions: Evaluate and Treat 05/30/20 11:39 Consult to Respiratory Therapy Evaluate & Treat Comment: Physician Instructions: Evaluate and treat 05/30/20 13:24 Consult to Speech Therapy Evaluate & Treat Comment: Physician Instructions: Evaluate and treat Discharge provider: Minnie Randle DO Summary Hospital Course Discharge Diagnosis: 1. End of life care. 2. Acute CVA, unclear if present on admission. Active. 3. Acute sepsis, present on admission. Resolved. 4. Acute recurrent UTI, present on admission. Resolved. 5. Ruled out metabolic encephalopathy. 6. Acute on chronic blood loss anemia, present on admission. Active. 7. GI bleeding, likely upper, present on admission. Active. 8. Acute kidney injury on chronic kidney disease stage III, presnet on admission. Active. 9. Pulmonary fibrosis with acute on chronic hypoxemic respiratory failure, present on admission. Active. 10. Chronic heart failure with preserved ejection fraction, possible acute exacerbation due to fluid resuscitation, present on admission. Active. 11. Diabetes mellitus type 2, non-insulin using, present on admission. Stable. 12. History of prior CVA. 13. Hypertension, chronic, present on admission. Stable. 14. Hyperlipidemia, chronic, present on admission. Stable. 15. Dementia, chronic, present on admission. Stable. 16. Depression and anxiety, chronic, present on admission. Stable. 17. Leukocytosis 18. hyperkalemia, improved. 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 1. End of life care. -Patient had large left cerebral hemisphere CVA with subsequent devastating neurological deficits and remains comatose. Decision made for comfort care per that was based on patient's prior stated wishes. -Nair catheter placed for comfort. -Continued comfort care medications including; morphine 10 mg sublingual every 1 hour as needed for pain or air hunger, lorazepam 0.5 mg sublingual every 4 hours as needed for anxiety or agitation, ondansetron 4 mg sublingual every 8 hours as needed for nausea, and scopolamine patch every 72 hours and atropine 1 drop sublingual every 4-6 hours as needed for excessive secretions. -Patient was discharged to [facility] with hospice to open later this afternoon. 2. Acute CVA, unclear if present on admission. Active. -MR stroke protocol demonstrated a large / moderate acute infarct of the left cerebral hemisphere. -Patient with subsequent devastating neurological deficits and remains comatose. Decision made for comfort care per that was based on patient's prior stated wishes. 3. Acute sepsis, present on admission. Resolved. -Sofa score of 3. Patient presented with mild worsening of her creatinine, confusion, and had reported low blood pressure at her living facility. Was further informed that she had some bright red blood which may be more indicative of a GI bleed rather from the trauma itself. -Early goal-directed therapy met including: IV fluid resuscitation and broad- spectrum IV antibiotics. 4. Acute recurrent UTI, present on admission. Resolved. -Urinalysis grossly positive with urine culture growing pansensitive E coli. Blood cultures have no growth to date. -Patient received Zosyn and vancomycin empirically in the ED. Continued Zosyn for UTI but also possible aspiration x3 days until there was an abrupt change in patient's level of consciousness and became comatose due to large left hemisphere CVA. The decision was made for palliative end of life care and all further interventions were discontinued. 5. Ruled out metabolic encephalopathy. -Patient thought to have metabolic encephalopathy in the setting of sepsis and UTI. However, the patient had an abrupt change in level of consciousness which did not improve with antibiotics and MRI demonstrated large acute left hem isphere CVA. CT brain without contrast on admission did not demonstrate any acute intracranial process and repeat with change in level of consciousness did not demonstrate any acute intracranial bleed or process. ABG did not show evidence of hypercarbia. 6. Acute on chronic blood loss anemia, present on admission. Active. -Continued Protonix 40 mg IV twice daily x3 days for probable upper GI source of bleeding with BUN 115. -Received 3 units PRBC on 05/30 for hemoglobin of 5.3 with response to 9.0. Slowly trended down but stopped trending given comfort care wishes. 7. GI bleeding, likely upper, present on admission. Active. -As noted above in problem 4. 8. Acute kidney injury on chronic kidney disease stage III, presnet on admission. Active. -Prior admission creatinine appeared around 1.7. Continued to worsen with a creatinine of 3.19 from 1.97 likely in the setting of sepsis and acute anemia. Discontinued trending as patient was palliative end of life care only. 9. Pulmonary fibrosis with acute on chronic hypoxemic respiratory failure, present on admission. Active. -Does not represent acute exacerbation. -Baseline oxygen requirement 2-3 L home oxygen. Continued respiratory therapy for evaluation and treatment. Continued supplemental oxygen to maintain oxygen saturations between 88-92%. Patient increased to 10 L of supplemental O2. Likely secondary to fluid overload, attempted diuresis as noted below. Stopped further treament on 06/01/20 when the decision was made for palliative end of life care. 10. Chronic heart failure with preserved ejection fraction, possible acute exacerbation due to fluid resuscitation, present on admission. Active. -echocardiogram performed previous admission revealed heart failure with preserved ejection fraction Patient developed worsening oxygen requirement on 06/01. Held fluids and gave one time dose of 40 mg lasix to assess response. Decision made later in the day to transition to comfort measures. 11. Diabetes mellitus type 2, non-insulin using, present on admission. Stable. -Glucose of 206 on admission, not currently on any medications. -No further monitoring. 12. History of prior CVA. -Continued home Lipitor until 06/01. 13. Hypertension, chronic, present on admission. Stable. -Continued home amlodipine, carvedilol, and hydralazine until 06/01 then discontinued as patient had large left hemisphere CVA, became comatose and was made comfort care only by her spouse. 14. Hyperlipidemia, chronic, present on admission. Stable. -Continued home Lipitor until 06/01 then discontinued as patient had large left hemisphere CVA, became comatose and was made comfort care only by her spouse. 15. Dementia, chronic, present on admission. Stable. -Continued home Seroquel and rivastigmine until 06/01 then discontinued as patient had large left hemisphere CVA, became comatose and was made comfort care only by her spouse. 16. Depression and anxiety, chronic, present on admission. Stable. -Not medically treated. 17. Leukocytosis -Concern for possible leukemia, family does not wish for further evaluation. 18. hyperkalemia, improved. -Likely in setting of acute kidney injury. Improved with kayexalate, insulin, calcium. No further lab testing given comfort care. Exam Vital Signs (past 8 hours): - 06/04/20 06:00 Pulse Oximetry 65 L Fraction of Inspired Oxygen 50 Oxygen Delivery Method Room Air Oxygen Flow Rate 0 Narrative Exam Narrative: General: Elderly female lying in bed, left arm held in aduction, comatose. HEENT: Normocephalic, atraumatic. External ears without defect. Cardiovascular: Regular rhythm and rate without murmurs, rubs, or gallops appreciated. Pulmonary: Upper airway rhonchi but clear in anterior lung diaz. Abdomen: Soft, nondistended. Extremities: No clubbing, cyanosis, or edema. Skin: Normal temperature, turgor, and texture; no rash, ulcers, or subcutaneous nodules appreciated. Neurological: Comatose Objective Labs Result Diagrams: 06/01/20 04:35 06/01/20 04:35 Discharge Plan Discharge Plan Patient Disposition: Hospice - Home Transfer to: [facility] Discharge orders & Medications Prescriptions: New lorazepam [Lorazepam Intensol] 2 mg/mL Concentrate 0.5 mg PO Q4HR PRN (Reason: Anxiety) Qty: 30 RF: 0 morphine concentrate 10 mg/0.5 mL Syringe 10 mg PO Q1HR PRN (Reason: Pain/Dyspnea) Qty: 1 RF: 0 scopolamine base [Transderm-Scop] 1 mg over 3 days Patch 3 Day 1 patch topical Q72H PRN (Reason: Secretions) Qty: 2 RF: 0 ondansetron 4 mg tablet,disintegrating 4 mg PO Q8H PRN (Reason: nausea and vomiting) Qty: 7 RF: 0 atropine 1 % drops 1 drop SL Q4-6H PRN (Reason: secretions) Qty: 2 RF: 0 Continued artifi.tears(hypromellose)(PF) 0.3 % Drops 2 drp OPHTHALMIC (EYE) TID RF: 0 Discontinued omeprazole 40 mg Capsule,Delayed Release(Dr/Ec) 40 mg PO DAILY RF: 0 ferrous sulfate 325 mg (65 mg iron) Tablet 325 mg PO DAILY RF: 0 hydralazine 50 mg Tablet 50 mg PO TID RF: 0 melatonin 10 mg Tablet 5 mg PO BEDTIME PRN (Reason: Insomnia) RF: 0 loperamide [Imodium A-D] 2 mg Tablet 2 mg PO Q6H PRN (Reason: Diarrhea) RF: 0 Flovent HFA 220 mcg/actuation Hfa Aerosol Inhaler 1 puff INHALATION BID RF: 0 quetiapine 25 mg Tablet 25 mg PO QPM RF: 0 rivastigmine tartrate 1.5 mg Capsule 3 mg PO BID RF: 0 atorvastatin 40 mg Tablet 20 mg PO BEDTIME RF: 0 aspirin-dipyridamole [Aggrenox] 25-200 mg Capsule, Er Multiphase 12 Hr 1 cap PO BID RF: 0 carvedilol 12.5 mg Tablet 12.5 mg PO BID RF: 0 nutritional supplements Liquid 1 ea PO QPM RF: 0 allopurinol 100 mg tablet 200 mg PO QAM RF: 0 psyllium Powder 0.5 tsp PO DAILY RF: 0 amlodipine 10 mg tablet 10 mg PO QAM RF: 0 escitalopram oxalate 20 mg Tablet 20 mg PO DAILY RF: 0 hydroxyzine HCl 50 mg Tablet 50 mg PO Q6HR PRN (Reason: Agitation) RF: 0 albuterol sulfate 90 mcg/actuation Aerosol Powdr Breath Activated 2 inh INHALATION BID RF: 0 furosemide 40 mg Tablet 40 mg PO DAILY Qty: 30 RF: 0 Diet/Activity/Treatments Diet: Nothing by Mouth Activity: Bedrest Visit Report/Discharge Packet Visit Report Forms: Patient Portal/API, Stroke Signs & Symptoms Discharges patient from system. Discharge Date/Time: 06/04/20 13:06 Quality VTE Deep Vein Thrombosis/Pulmonary Embolism Present on Admission: No
--- NOTE | 2020-06-04 11:00 | PC.NURSE ---
Patient resting with eyes closed. IV patent, breathing is WNL, rate at 24, deep. Patient inc. of stool, cleaned and brief changed. Nair is patent and draining. Patient allowed to sleep.
[2020-06-04 13:43] VITALS: BP 122/56; PULSE 106; RESP 24; TEMP 37.2; O2SAT 44
--- NOTE | 2020-06-04 13:56 | CM.DPNOTE ---
DCP Cont DC order in place today by Dr Randle, patient remains stable in condition. This IMPROVEMENT SPEC speaking w/ Abebe at [facility] yesterday and today, Abebe came to bedside yesterday to see how patient was doing. Patient now on po meds and pain/symptoms managed well. Spouse visited patient yesterday evening, aware and agreeable to plan for DC back to [facility]. Spoke to Salima/[facility]W yesterday and she explained a spot to open service available today between [id number]. Abebe at [facility] aware and appreciative. Patient will have O2 delivered, other DME already at [facility] BLS arranged for p/u at 1300, to [place], w/[facility] to open service at 1400. po meds written by Dr Randle to bridge while Hospice opens and begins to take over meds KELLY Sanchez
== END 2020-06-04 13:06 | disposition hospice, home (50) | DRG 871 ==
LOC: ED 08:01 → AC 09:40 → ICU 13:31 → AC 06-01 16:32
PROVIDERS: Family Medicine; Admitting Provider Internal Medicine; Emergency Provider Emergency Medicine; Referring Provider Emergency Medicine; Visit Provider Internal Medicine
DX: A41.9 Sepsis, unspecified organism (principal); R40.20 Unspecified coma; I63.9 Cerebral infarction, unspecified; N30.00 Acute cystitis without hematuria; I13.0 Hypertensive heart and chronic kidney disease with heart failure and stage 1 through stage 4 chronic kidney disease, or unspecified chronic kidney disease; I50.32 Chronic diastolic (congestive) heart failure; J96.11 Chronic respiratory failure with hypoxia; K92.1 Melena; D62 Acute posthemorrhagic anemia; R65.20 Severe sepsis without septic shock; I95.9 Hypotension, unspecified; N18.3 Chronic kidney disease, stage 3 (moderate); Z99.81 Dependence on supplemental oxygen; J84.10 Pulmonary fibrosis, unspecified; E11.22 Type 2 diabetes mellitus with diabetic chronic kidney disease; I13.10 Hypertensive heart and chronic kidney disease without heart failure, with stage 1 through stage 4 chronic kidney disease, or unspecified chronic kidney disease; F03.90 Unspecified dementia, unspecified severity, without behavioral disturbance, psychotic disturbance, mood disturbance, and anxiety; B96.20 Unspecified Escherichia coli [E. coli] as the cause of diseases classified elsewhere; E78.5 Hyperlipidemia, unspecified; F32.9 Major depressive disorder, single episode, unspecified; E87.5 Hyperkalemia; F41.9 Anxiety disorder, unspecified; Z11.59 Encounter for screening for other viral diseases; W18.30XA Fall on same level, unspecified, initial encounter; Y92.099 Unspecified place in other non-institutional residence as the place of occurrence of the external cause; Z66 Do not resuscitate; Z51.5 Encounter for palliative care
CPT/HCPCS: 36415; 36430; 36600; 70450; 70551; 71045; 72125; 76770; 80048; 80053; 80076; 81001; 82805; 82962; 83605; 83735; 84132; 84145; 84443; 85025; 86850; 86900; 86901; 87040; 87077; 87086; 87186; 87635; 87797; 93005; 94640; 96361; 96365; 96375; 99285; P9016; C9113; J0610; J1940; J2060; J2270; J2405; J2543; J7613